=== PATIENT | male | born 1975 | race Caucasian/White ===

== ENCOUNTER → 2018-03-04 | Outpatient (CLI) | payer MEDICARE, MEDICAID | LOC: M SLEEP 20:00 | DX: G47.33 Obstructive sleep apnea (adult) (pediatric) (principal) | CPT/HCPCS: 95811 ==

== ENCOUNTER → 2018-03-05 | Outpatient (CLI) | payer MEDICARE, MEDICAID ==
[2018-03-05 08:36] LABS: ERYTHROCYTE SEDIMENTATION RATE 16 mm/hr (0-15)
[2018-03-05 08:37] LABS: RHEUMATOID FACTOR QUANT < 10.0 IU/ML (<15.0)
[2018-03-08 00:07] LABS: ANCA-ATYPICAL <1:20 titer (Neg:<1:20); ANGIOTENSIN 1 CONVERTING ENZYM 25 U/L (14-82); ANTINUCLEAR ANTIBODIES DIRECT Negative (Negative); CERULOPLASMIN 20.2 mg/dL (16.0-31.0); COPPER PLASMA 80 ug/dL (72-166); CYTOPLASMIC NEUTROP AB ANCA-C <1:20 titer (Neg:<1:20); Lyme Disease IgG/IgM Antibodie <0.91 ISR (0.00-0.90); Lyme Disease IgM Ab Quantitati <0.80 index (0.00-0.79); PERINUCLEAR AB ANCA-P <1:20 titer (Neg:<1:20)
== END ==
LOC: M LAB 07:07
DX: E61.0 Copper deficiency (principal)
CPT/HCPCS: 82525

== ENCOUNTER → 2018-08-20 | Outpatient (CLI) | payer MEDICARE, MEDICAID ==
[~2018-08-20] MED LIST: /FEXO18TA OR; /GLIM4TA OR; ALTA10CA OR; BENZ1TAB OR; DIGESTIVE ADVANTAGE; DIGESTIVE ADVANTAGE PO; FENO160T10 PO; FISH5CAP PO; FLOM0.4C39 PO; Fish Oil PO; GABA-843 PO; GEOD1CAP PO; GLUC850T OR; MAG-TAB OR; METF850T4 PO; OMEP40CA2 PO; PRIL40CA OR; RESTASIS OU; THIA50CA PO; TRIC145T19 OR; VITA-112 PO; VITA250L PO; ZIPR80CAP OR; [UNRECOGNIZED DRUG - CODE] GT; [UNRECOGNIZED DRUG - OTHER] PO
[2018-08-20 07:57] LABS: BASO # 0.1 10^3/uL (0.0-0.2); BASO % 0.8 % (0.0-1.0); EOS # 0.2 10^3/uL (0.0-0.50); EOS % 1.7 % (0.0-3.0); HEMATOCRIT 35.8 % (42.0-52.0); HEMOGLOBIN 11.7 g/dl (13.5-17.5); LYMPH # 3.4 10^3/uL (1.5-4.5); LYMPH % 30.8 % (24.0-44.0); MEAN CORPUSCULAR HEMOGLOBIN 27.3 pg (27.0-33.0); MEAN CORPUSCULAR HGB CONC 32.7 g/dl (32.0-36.5); MEAN CORPUSCULAR VOLUME 83.4 fl (80.0-96.0); MONO % 9.2 % (0.0-5.0); NEUTROPHILS # 6.2 10^3/uL (1.8-7.7); NEUTROPHILS % 57.1 % (36.0-66.0); PLATELET COUNT, AUTOMATED 389 10^3/uL (150-450); RED BLOOD COUNT 4.29 10^6/uL (4.30-6.10); WHITE BLOOD COUNT 10.9 10^3/uL (4.0-10.0)
[2018-08-20 08:30] LABS: ALBUMIN 3.7 GM/DL (3.2-5.2); ALT/SGPT 44 U/L (12-78); BILIRUBIN,TOTAL 0.4 MG/DL (0.2-1.0); BLOOD UREA NITROGEN 12 MG/DL (7-18); CALCIUM LEVEL 8.9 MG/DL (8.5-10.1); CARBON DIOXIDE LEVEL 26 MEQ/L (21-32); CHLORIDE LEVEL 104 MEQ/L (98-107); CREATININE FOR GFR 0.84 MG/DL (0.70-1.30); GLOMERULAR FILTRATION RATE > 60.0 (>60); GLUCOSE, FASTING 146 MG/DL (70-100); POTASSIUM SERUM 3.9 MEQ/L (3.5-5.1); SODIUM LEVEL 140 MEQ/L (136-145); TOTAL PROTEIN 6.8 GM/DL (6.4-8.2)
[2018-08-20 08:58] LABS: HEMOGLOBIN A1c 8.1 %
== END ==
LOC: M LAB 07:13
PROVIDERS: ATTEND Family Medicine
DX: E11.65 Type 2 diabetes mellitus with hyperglycemia (principal); D64.9 Anemia, unspecified; E07.9 Disorder of thyroid, unspecified
CPT/HCPCS: 36415; 80053; 83036; 84443; 85025; G0103

== ENCOUNTER → 2018-08-21 | Outpatient (REF) | payer MEDICARE, MEDICAID ==
[2018-08-21 11:57] LABS: CREATININE, URINE < 13.0 MG/DL; MALB URINE SIEMENS < 5.0 MG/L
== END ==
LOC: M LAB REF 09:49
PROVIDERS: ATTEND Family Medicine
DX: E11.65 Type 2 diabetes mellitus with hyperglycemia (principal); D64.9 Anemia, unspecified; E07.9 Disorder of thyroid, unspecified

== ENCOUNTER 2018-11-13 14:02 | Emergency (ER) | payer MEDICARE, MEDICAID ==
[~2018-11-13] VITALS: Ht 180.3 cm; Wt 99.5 kg
[~2018-11-13 14:02] MED LIST changes: -/GLIM4TA OR; +AMAR1TAB6 OR
[2018-11-13] MEDS ORDERED: BETH1TAB3 (14:14)
[2018-11-13] MEDS ORDERED: GAS125CA15 (14:14)
[2018-11-13] MEDS ORDERED: REST0.057 (14:14)
[2018-11-13] MEDS ORDERED: OMEP-221 (14:14)
[2018-11-13] MEDS ORDERED: TRUL10IN (14:14)
--- NOTE | 2018-11-13 15:17 | REP ---
CT Head without contrast HISTORY: Fall COMPARISON: 04/25/2016 There is no intraparenchymal hemorrhage, acute infarct, mass or midline shift. The ventricular system is normal in appearance. There is no extra cerebral collection. A small amount of subarachnoid hemorrhage is present anterior to the right temporal lobe and in the anterior interhemispheric fissure. There is a nondisplaced fracture of the left occipital and parietal bones. The visualized sinuses are clear. Soft tissue swelling is present overlying the parietal bones and left occipital bone. Small amount of subcutaneous air is present in the soft tissue overlying the left parietal bone. IMPRESSION: 1. Small amount of subarachnoid hemorrhage. 2. Nondepressed fracture of the left parietal and occipital bones. Results were discussed with Ray Robertson at 03:00 p.m. 10/28/2018 Electronically Signed by Rancho Al MD 11/13/2018 03:09 P
[2018-11-13] MEDS: ADACEL/BOOSTRIX VACCINE (DIPHTH/PERTUSS/ACELL/TETANUS)0.5ML SYR (90715) IM ONE (15:49)
[2018-11-13 16:07] VITALS: BP 142/84
== END 2018-11-13 16:14 | disposition short-term general hospital (02) ==
LOC: M ED 14:02
DX: S01.91XA Laceration without foreign body of unspecified part of head, initial encounter (principal); W55.89XA Other contact with other mammals, initial encounter; Y92.019 Unspecified place in single-family (private) house as the place of occurrence of the external cause

== ENCOUNTER → 2019-04-03 | Outpatient (CLI) | payer MEDICARE, MEDICAID ==
[~2019-04-03] MED LIST changes: +BETH1TAB3; +GAS125CA15; +OMEP-221; +REST0.057; +TRUL10IN
[2019-04-03 07:51] LABS: BASO # 0.1 10^3/uL (0.0-0.2); BASO % 0.8 % (0.0-1.0); EOS # 0.2 10^3/uL (0.0-0.5); EOS % 1.9 % (0.0-3.0); HEMATOCRIT 35.6 % (42.0-52.0); HEMOGLOBIN 11.5 g/dl (13.5-17.5); LYMPH # 3.3 10^3/uL (1.5-5.0); LYMPH % 36.8 % (24.0-44.0); MEAN CORPUSCULAR HEMOGLOBIN 26.3 pg (27.0-33.0); MEAN CORPUSCULAR HGB CONC 32.3 g/dl (32.0-36.5); MEAN CORPUSCULAR VOLUME 81.5 fl (80.0-96.0); MONO # 0.8 10^3/uL (0.0-0.8); MONO % 9.3 % (0.0-5.0); NEUTROPHILS # 4.6 10^3/uL (1.5-8.5); NEUTROPHILS % 50.9 % (36.0-66.0); PLATELET COUNT, AUTOMATED 402 10^3/uL (150-450); RED BLOOD COUNT 4.37 10^6/uL (4.30-6.10); WHITE BLOOD COUNT 8.9 10^3/uL (4.0-10.0)
[2019-04-03 08:28] LABS: ALBUMIN 3.9 GM/DL (3.2-5.2); ALT/SGPT 46 U/L (12-78); BILIRUBIN,TOTAL 0.2 MG/DL (0.2-1.0); BLOOD UREA NITROGEN 10 MG/DL (7-18); CALCIUM LEVEL 9.2 MG/DL (8.5-10.1); CARBON DIOXIDE LEVEL 23 MEQ/L (21-32); CHLORIDE LEVEL 105 MEQ/L (98-107); CHOLESTEROL LEVEL 203 MG/DL (<200); CHOLESTEROL RISK RATIO 4.319 (<5); CREATININE FOR GFR 0.84 MG/DL (0.70-1.30); FERRITIN 25 NG/ML (26-388); GLOMERULAR FILTRATION RATE > 60.0 (>60); GLUCOSE, FASTING 133 MG/DL (70-100); HDL CHOLESTEROL 47 MG/DL (>40); IRON (FE) 60 UG/DL (65-175); LDL CHOLESTEROL 91 MG/DL (<100); NON-HDL-C 156 MG/DL; PERCENT SATURATION 14.2 % (19.7-50.0); SODIUM LEVEL 139 MEQ/L (136-145); TOTAL IRON BINDING CAPACITY 422 UG/DL (250-450); TOTAL PROTEIN 7.3 GM/DL (6.4-8.2); TRIGLYCERIDES LEVEL 327 MG/DL (<150)
[2019-04-03 09:39] LABS: HEMOGLOBIN A1c 7.8 %
[2019-04-03 10:18] LABS: VITAMIN B12 LEVEL 953 PG/ML
[2019-04-03 10:23] LABS: FOLATE 23.9 NG/ML
== END ==
LOC: M LAB 07:09
PROVIDERS: ATTEND Family Medicine
DX: E78.5 Hyperlipidemia, unspecified (principal); E11.65 Type 2 diabetes mellitus with hyperglycemia; I10 Essential (primary) hypertension; D64.9 Anemia, unspecified; D51.9 Vitamin B12 deficiency anemia, unspecified; E07.9 Disorder of thyroid, unspecified

== ENCOUNTER 2019-05-20 15:13 | Emergency (ER) | payer MEDICARE, MEDICAID ==
[~2019-05-20] VITALS: Ht 175.3 cm; Wt 104.6 kg
[~2019-05-20 15:13] MED LIST changes: -OMEP40CA2 PO; +OMEP40CA97 PO
--- NOTE | 2019-05-20 15:59 | REP ---
CT brain: 05/20/2019. Indication: Head trauma. Comparison: 11/13/2018. Technique: Unenhanced axial CT images of the brain were obtained from skull base to vertex. Findings: There is no acute intracranial hemorrhage, acute cortical infarction, mass effect, hydrocephalus or acute calvarial fracture. Previously described left parieto-occipital fracture is redemonstrated without displacement. Impression: No acute intracranial process. Electronically Signed by Avila Whitehead DO 05/20/2019 03:52 P
[2019-05-20] MEDS ORDERED: ACETAMINOPHEN TAB 650MG DOSE (2X325MG) PO ONE (16:00)
--- NOTE | 2019-05-20 16:26 | REP ---
Left knee series: Five views. History: Trauma. Findings: Five views of the left knee show a normal fabella. There is no evidence of fracture or subluxation. No evidence of joint effusion is seen. Impression: No fracture seen. Electronically Signed by Loi Ramírez MD 05/20/2019 04:17 P
[2019-05-20 16:36] VITALS: BP 141/82
== END 2019-05-20 16:37 | disposition home or self-care (01) ==
LOC: M ED 15:13
DX: S09.90XA Unspecified injury of head, initial encounter (principal); S01.01XA Laceration without foreign body of scalp, initial encounter; R26.81 Unsteadiness on feet; W01.198A Fall on same level from slipping, tripping and stumbling with subsequent striking against other object, initial encounter; Y92.018 Other place in single-family (private) house as the place of occurrence of the external cause; E11.9 Type 2 diabetes mellitus without complications; E78.5 Hyperlipidemia, unspecified; Z91.011 Allergy to milk products; Z79.84 Long term (current) use of oral hypoglycemic drugs; Z79.899 Other long term (current) drug therapy

== ENCOUNTER → 2019-08-06 | Outpatient (CLI) | payer MEDICARE, MEDICAID ==
[2019-08-06 08:22] LABS: BASO # 0.1 10^3/uL (0.0-0.2); BASO % 0.9 % (0.0-1.0); EOS # 0.2 10^3/uL (0.0-0.5); EOS % 1.8 % (0.0-3.0); HEMOGLOBIN 11.9 g/dl (13.5-17.5); LYMPH # 3.7 10^3/uL (1.5-5.0); LYMPH % 36.1 % (24.0-44.0); MEAN CORPUSCULAR HEMOGLOBIN 26.5 pg (27.0-33.0); MEAN CORPUSCULAR HGB CONC 32.2 g/dl (32.0-36.5); MEAN CORPUSCULAR VOLUME 82.4 fl (80.0-96.0); MONO # 0.8 10^3/uL (0.0-0.8); MONO % 7.4 % (0.0-5.0); NEUTROPHILS # 5.6 10^3/uL (1.5-8.5); NEUTROPHILS % 53.6 % (36.0-66.0); PLATELET COUNT, AUTOMATED 410 10^3/uL (150-450); RED BLOOD COUNT 4.49 10^6/uL (4.30-6.10); WHITE BLOOD COUNT 10.4 10^3/uL (4.0-10.0)
[2019-08-06 08:49] LABS: ALT/SGPT 52 U/L (12-78); BILIRUBIN,TOTAL 0.3 MG/DL (0.2-1.0); BLOOD UREA NITROGEN 8 MG/DL (7-18); CALCIUM LEVEL 9.1 MG/DL (8.5-10.1); CARBON DIOXIDE LEVEL 27 MEQ/L (21-32); CHLORIDE LEVEL 107 MEQ/L (98-107); CREATININE FOR GFR 0.83 MG/DL (0.70-1.30); FERRITIN 20 NG/ML (26-388); GLOMERULAR FILTRATION RATE > 60.0 (>60); GLUCOSE, FASTING 124 MG/DL (70-100); IRON (FE) 51 UG/DL (65-175); PERCENT SATURATION 13.4 % (19.7-50.0); POTASSIUM SERUM 4.1 MEQ/L (3.5-5.1); SODIUM LEVEL 140 MEQ/L (136-145); TOTAL IRON BINDING CAPACITY 382 UG/DL (250-450); TOTAL PROTEIN 7.3 GM/DL (6.4-8.2)
[2019-08-06 12:45] LABS: HEMOGLOBIN A1c 7.7 %
[2019-08-07 13:34] LABS: CHOLESTEROL LEVEL 176 MG/DL (<200); CHOLESTEROL RISK RATIO 4.093 (<5); HDL CHOLESTEROL 43 MG/DL (>40); LDL CHOLESTEROL 80 MG/DL (<100); NON-HDL-C 133 MG/DL; TRIGLYCERIDES LEVEL 267 MG/DL (<150)
[2019-08-07 13:37] LABS: FOLATE 22.7 NG/ML; VITAMIN B12 LEVEL 1331 PG/ML
== END ==
LOC: M LAB 07:13
PROVIDERS: ATTEND Family Medicine
DX: D64.9 Anemia, unspecified (principal); I10 Essential (primary) hypertension; E11.9 Type 2 diabetes mellitus without complications; E07.9 Disorder of thyroid, unspecified; E78.5 Hyperlipidemia, unspecified

== ENCOUNTER 2020-08-15 02:37 | Emergency (ER) | payer MEDICARE, MEDICAID ==
[~2020-08-15] VITALS: Ht 177.8 cm; Wt 127.3 kg
[~2020-08-15 02:37] MED LIST changes: -BETH1TAB3; +BETH25TA3; +GABA-282 PO; -GABA-843 PO; -GAS125CA15; +SIME125C33
--- OUTSIDE RECORDS SUMMARY | 2020-08-15 02:45 | CCD | Summary of Care ---
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/2020 Telemedicine [facility] Neurology a [facility] [address] [facility] [address], [address] [place] [phone] Allergies Comments Active Allergy Reactions Severity Noted Date Lactose 11/13/2018 documented as of this encounter (statuses as of 06/07/2020) Medications End Date Status Medication Sig Dispensed Refills Start Date Active metformin (GLUCOPHAGE) Two times 0 01/26/ 01 850 MG tablet daily with 8 meals Active bethanechol (URECHOLINE) Take 25 mg by 0 25 MG tablet mouth Three times daily Active Multiple Take 1 tablet 0 Vitamins-Minerals by mouth (MULTIVITAMIN ADULT PO) daily Active vitamin B-12 Take 50 mcg 0 (CYANOCOBALAMIN) 100 MCG by mouth tablet daily Active ziprasidone (GEODON) 40 Take 40 mg by 0 MG capsule mouth Three times daily Active omeprazole (PRILOSEC) 40 Take 40 mg by 0 MG capsule mouth daily Active Lactase (LACTOSE Take 1 tablet 0 INTOLERANCE PO) by mouth daily Active Lactobacillus (PROBIOTIC Take 1 tablet 0 ACIDOPHILUS PO) by mouth daily Active Cholecalciferol (VITAMIN Take 1,000 0 D3) 3000 units TABS Units by mouth Three times daily Active Cyanocobalamin (VITAMIN Take 1,000 mg 0 B-12 PO) by mouth daily Active fenofibrate (TRIGLIDE) Take 160 mg 0 160 MG tablet by mouth daily Active tamsulosin HCl (FLOMAX) Take 0.4 mg 0 0.4 MG CAPS by mouth daily Active acetaminophen (TYLENOL) Take 1,000 mg 0 500 MG tablet by mouth nightly Active cycloSPORINE (RESTASIS) Place 1 drop 0 0.05 % ophthalmic into both emulsion eyes Two Times Daily Active TRULICITY 0.75 MG/0.5ML Inject 1.5 mg 0 injection pen 0.75 mg/0.5 into the skin 9 mL once a week Active vitamin B-12 Take 1,000 0 (CYANOCOBALAMIN) 1000 MCG mcg by mouth tablet daily Active Vitamin B-1 100 MG Oral Take 100 mg 0 Tablet by mouth daily Active Glimepiride 1 MG Oral Take 1 mg by 0 06/03/20 1 Tablet (AMARYL) mouth Two 9 Times Daily Active Atorvastatin Calcium 10 Take 5 mg by 0 MG Oral Tablet (LIPITOR) mouth daily Active Docusate Sodium 50 MG Take 100 mg 0 Oral Capsule (COLACE) by mouth nightly documented as of this encounter (statuses as of 06/07/2020) Active Problems Problem Noted Date Fall 11/14/2018 XENA on CPAP 11/14/2018 Class 2 severe obesity with serious comorbidity and b nino mass index (BMI) 11/14/2018 of 35.0 to 35.9 in adult Lactic acid acidosis 11/14/2018 SIRS (systemic inflammatory response syndrome) 11/14 Essential hypertension 11/14/2018 High anion gap metabolic acidosis 11/14/2018 nondisplaced linear fracture of the left occipital az ne 11/14/2018 Abrasion 11/14/2018 Benign prostatic hyperplasia with lower urinary tract symptoms 11/14/2018 Schizoaffective disorder 11/14/2018 Intellectual disability 11/14/2018 Hyperlipidemia 11/14/2018 Subarachnoid hemorrhage 11/13/2018 documented as of this encounter (statuses as of 06/07/2020) Social History Date Tobacco Use Types Packs/Day Years Used Never Smoker Smokeless Tobacco: Never Used Drinks/Week oz/Week Comments Alcohol Use Never Alcohol Habits Answer Date Recorded How often do you have a drink containing alcohol? Never 11/14/2018 How many drinks containing alcohol do you have on No t asked a typical day when you are drinking? How often do you have six or more drinks on one Not asked occasion? Sex Assigned at Date Recorded Not on file documented as of this encounter Last Filed Vital Signs Reading Time Taken Comments Vital Sign - - Blood Pressure - - Pulse - - Temperature - - Respiratory Rate - - Oxygen Saturation - - Inhaled Oxygen Concentration 109.3 kg (241 lb) 06/05/2020 9:24 AM EST per sister today Weight - - Height 36.95 11/14/2018 1:49 AM EDT Body Mass Index documented in this encounter Progress Notes * Yancy Morales MD - 06/05/2020 9:20 AM EST Clinical Neuroimmunology Telemedicine visit The patient was informed of the risks, including security breach, technological failure, inability to perform a comprehensive physical exam ,which could delay o r prevent an accurate diagnosis, and potential complications from treatment deci sions rendered over a telemedical platform, after which the patient consented to the use of telehealth services. Care was delivered via telemedicine audio and v ideo connection, as per [facility] and/or [facility] directives a nd protocols. Reason for consultation: Gait instability. Requested by: No referring provider defined for this encounter. Chief Complaint: Chief Complaint Patient presents with New Patient HPI: Arash Robles is a 44 y.o. male who is assessed by telemedicine for initi al consultation accompanied by sister ( who is his caregiver) He has a medical history of cognitive delay - completed some high school, Wern[place]'s encephalopathy diagnosis(?), Schizoaffective disorder, DM2 Referred for gait instability, including poor balance. This has been on going fo r the past about 6-8 years, his current Neurologist in [place] referred him fo r multiple lesions in the spine of unclear etiology. He currently follows with Dr. Valle due to history of Wernicke's encephalopathy. Neurological History: He was at his baseline 6-8 years ago when his sister noticed change in gait dist urbance causing him to fall while walking on flat surface both in and outdoors; he times falls during turns as well. He was initially seen at [place] in 2011 where brain and cervical spine MRIs revealed a disc bulge at the C5-C6 level wit h minimal stenosis from C5 to C7, and a normal brain MRI. In 2018, he was seen b y [facility] in 2018 for possible PD, his exam bao l reflexes, sensory, motor. He was noted to have some pill rolling movements, tr unk rocking. Repeat MRI was noted to have bilateral thalamic and periaqueductal johns T2 hyper intensities thought to be consistent with [place]; additionally he had 5 mm medullary lesion extending into there cervical spine of unclear roxane ology. He was started on Thiamine, LP was performed which was largely unremarkab le (result below), he was also treated for tardive dyskinesia. Additional symptoms include 5 years ago he developed double vision, for which he was seen by [facility] for bilateral exotropia causing worsening double for which he had corrective surgery. He had episodes of urinary retention 4 years ago for which he had suprapubic catheter by Urology, unclear if this is still an active issue. In the interim his he continues to fall and in October 2018, his fall resulted in a right SAH and left occipital bone fracture. He has since started PT/OT which w as his sister feels has been helpful. His most recent MRI in March 2020 show ed cervical spine lesion more prominent than prior. No additional lesions, altho ugh extensive medullary lesion was thought to be more prominent. Interval History: Since last visit the patient reports:na (initial visit) Disease modifying therapy history: None Diagnosis Workup and Results: MRI Information: Laboratory Studies: Results for ARASH ROBLES ( ) as of 06/05/2020 10:03 Ref. Range 08/24/2018 12:50 Clarity, CSF Unknown Clear Red blood cell count,CSF Latest Ref Range: <2 /uL 62 (H) Total Nucleated Cells, CSF Latest Ref Range: <5 /uL <3 Albumin Serum Latest Ref Range: 3.5 - 5.5 g/dL 4.4 Albumin, CSF Latest Ref Range: 11 - 48 mg/dL 36 Color, CSF Unknown Colorless Comment Unknown Not Applicable CSF Differential Unknown Not Applicable Glucose, CSF Latest Ref Range: 40 - 70 mg/dL 61 IgG, CSF Latest Ref Range: 0.0 - 8.6 mg/dL 3.6 Protein Elect, CSF Unknown See Special Chemistry Protein, CSF Latest Ref Range: 15 - 45 mg/dl 55 (H) Synthesis Rate IgG, CSF Latest Ref Range: NEG 9.9 TO +3.3 mg/day 2.6 Interpretation No oligoclonal bands detected Interpretation Normally migrating serum proteins. Diagnosis CEREBROSPINAL FLUID: NO EVIDENCE OF MALIGNANCY No results found for this or any previous visit (from the past 8736 hour(s)). Past Medical History: Diagnosis Date Diabetes mellitus Hypertension Past Surgical History: Procedure Laterality Date EYE SURGERY Social History Tobacco Use Smoking status: Never Smoker Smokeless tobacco: Never Used Substance Use Topics Alcohol use: Never Frequency: Never Drug use: Never Family History Problem Relation Age of Onset Arthritis Mother Heart disease Mother Hypertension Mother Asthma Father Arthritis Father Diabetes Father Heart disease Father Hypertension Father Dementia Father Asthma Sister Arthritis Brother Hypertension Brother Asthma Sister No Known Problems Sister No Known Problems Brother No Known Problems Brother Allergies as of 06/05/2020 - Reviewed 06/05/2020 Allergen Reaction Noted Lactose 11/13/2018 Outpatient Medications Marked as Taking for the 06/05/20 encounter (Telemedicine ) with Ben Iqbal MD Medication Sig Dispense Refill Extra Info acetaminophen (TYLENOL) 500 MG tablet Take 1,000 mg by mouth nightly 1 Atorvastatin Calcium 10 MG Oral Tablet (LIPITOR) Take 5 mg by mouth daily 1 bethanechol (URECHOLINE) 25 MG tablet Take 25 mg by mouth Three times garcía ly 1 Cholecalciferol (VITAMIN D3) 3000 units TABS Take 1,000 Units by mouth Th ree times daily 1 Cyanocobalamin (VITAMIN B-12 PO) Take 1,000 mg by mouth daily 1 cycloSPORINE (RESTASIS) 0.05 % ophthalmic emulsion Place 1 drop into both eyes Two Times Daily 1 Docusate Sodium 50 MG Oral Capsule (COLACE) Take 100 mg by mouth nightly 1 fenofibrate (TRIGLIDE) 160 MG tablet Take 160 mg by mouth daily 1 Glimepiride 1 MG Oral Tablet (AMARYL) Take 1 mg by mouth Two Times Daily 1 Lactase (LACTOSE INTOLERANCE PO) Take 1 tablet by mouth daily 1 Lactobacillus (PROBIOTIC ACIDOPHILUS PO) Take 1 tablet by mouth daily 1 metformin (GLUCOPHAGE) 850 MG tablet Two times daily with meals 1 Multiple Vitamins-Minerals (MULTIVITAMIN ADULT PO) Take 1 tablet by mouth daily 1 omeprazole (PRILOSEC) 40 MG capsule Take 40 mg by mouth daily 1 tamsulosin HCl (FLOMAX) 0.4 MG CAPS Take 0.4 mg by mouth daily 1 TRULICITY 0.75 MG/0.5ML injection pen 0.75 mg/0.5 mL Inject 1.5 mg into t he skin once a week 1 Vitamin B-1 100 MG Oral Tablet Take 100 mg by mouth daily 1 ziprasidone (GEODON) 40 MG capsule Take 40 mg by mouth Three times daily 1 Review of Systems: Besides the above mentioned symptoms described in the HPI, a complete review of systems was obtained and filed in the chart. All other systems were otherwise negative. General Physical Exam: Vital Signs: Vitals: 06/05/20 0924 Weight: 109.3 kg (241 lb) Constitutional: The patient is well-appearing and in no acute distress. Eyes: Conjunctivae and lids are normal, see examination of the optic discs below Skin: No rashes or discoloration noted Respiratory: Respiratory effort is normal Cardiovascular: Dorsalis pedis pulses are normal, no peripheral edema noted Neurological Examination (tele examination) Mental Status/Psychiatric: The patient was awake, alert, attentive, oriented to time, place, person. He is able to perform 2 but not 3 step commands without assistance. Mental status: normal (no anxiety/depression/euphoria/pseudobulbar affect) Speech: normal (not dysphasic/cerebellar/spastic) Cranial Nerves: Red desaturation: not tested VA not tested Facial Strength: normal Fundi: no pallor Mild adduction palsy right eye with left nystagmus - Nystagmus: none SCM/trapezius grossly intact Pupils 2 mm in brightly lit room Tongue: midline Motor Exam and Deep Tendon Reflexes: AG x4 Lhermitte's Sign: not present Bulk: normal Sensory System: Coordination (0-4): FTN intact Gait: Mobility normal Heel Walk Gait and Station Antalgic gait. Toe Walk Tandem Walk Unsteady Assessment: Arash Robles is a 44 y.o. male who is here for new neurology consultation for progressive gait instability and nonenhancing lesion extending medullary to cerv ical spine, MRI 2020 brain, cervical,m thoracic spine were [place] with Radi[facility] [place], there are multiple lesions. there is bilateral lesion in pena matter coales cing in the medulla and C4-6 posterior lesion. Differential remains broad including vascular, demyelinating and metabolic. Give n progressive nature, vascular is lower on the differential. Plan - Metabolic workup -Copper, Ceruloplasmin, B12, MMA< folate, zinc - Autoimmune: DORIS and DORIS specificity, ESR, TSH, Celiac. Demyelinating- NMO, MO G - Infectious - HIV - He will benefit from inpatient visit in 3 months for more extensive examinati on Greater than 50% of this 60 minute visit was spent in medical discussion regardi ng the patient's diagnosis, prognosis. I had an extensive conversation with Arash Yady Robles (especially with sister - Petty Zapata) regarding these thoughts and recommendations. The patient demonstra dillon a good understanding of the risks/benefits of this plan. Thank you for allowing us to participate in the care of this patient. If you hav e any questions, please do not hesitate to call our office. Attending Addendum I saw and evaluated the patient. Discussed with the resident and agree with the residents findings and plans as written, along with any supplemental dictated a nd/or attending documentation in the patient record by myself. Our evaluation today is very limited by the telemedicine format due to the worse harper COVID-19 pandemic. We reviewed the patient's neuroimaging with radiology a t length. By the time I joined the telemedicine encounter, the patient had left to attend another appointment so I was not able to evaluate him. In discussing with sister, my understanding is that he has been experiencing 8 y ears of progressive gait decline. She denies episodes of neurological worsening. However his history includes the onset of diplopia 5 years ago. Urinary retenti on requiring suprapubic catheter Other neurological diagnoses that have been made: axonal sensorimotor polyneuropathy and gives a description of restless legs synd visalia - Dr. Osborn UR 2012 opisthotonus and upper extremity dystonias - Tardive dyskinesia and Tardive dyst onia, Dr. 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 We will have to plan for an in person visit to assess further. Ben Iqbal MD documented in this encounter Plan of Treatment Care Team Description Date Type Specialty Ben Iqbal MD [address] [facility] [address] [place] [phone] 09/09/2020 Office Visit Neurology Order Schedule Name Type Priority Associated Diag noses 1 Occurrences starting 06/05/2020 until 12/03/2020 DORIS Lab Routine Ataxia Demyelinating disease of central nervous system Gait disturbance Dysmetria Urinary retention Spinal cord anomaly 1 Occurrences starting 06/05/2020 until 12/03/2020 DORIS Specificity Lab Routine Ataxia Demyelinating disease of central nervous system Gait disturbance Dysmetria Urinary retention Spinal cord anomaly 1 Occurrences starting 06/05/2020 until 12/03/2020 Angiotensin converting Lab Routine Ataxia enzyme Demyelinating disease of central nervous system Gait disturbance Dysmetria Urinary retention Spinal cord anomaly 1 Occurrences starting 06/05/2020 until 12/03/2020 B2 glycoprotein IgG/IgM Lab Routine Ataxia Demyelinating disease of central nervous system Gait disturbance Dysmetria Urinary retention Spinal cord anomaly 1 Occurrences starting 06/05/2020 until 12/03/2020 C3 complement Lab Routine Ataxia Demyelinating disease of central nervous system Gait disturbance Dysmetria Urinary retention Spinal cord anomaly 1 Occurrences starting 06/05/2020 until 12/03/2020 C4 complement Lab Routine Ataxia Demyelinating disease of central nervous system Gait disturbance Dysmetria Urinary retention Spinal cord anomaly 1 Occurrences starting 06/05/2020 until 12/03/2020 Cardiolipin IgG/IgM Ab Lab Routine Ataxia Demyelinating disease of central nervous system Gait disturbance Dysmetria Urinary retention Spinal cord anomaly 1 Occurrences starting 06/05/2020 until 12/03/2020 CBC and Differential Lab Routine Ataxia Demyelinating disease of central nervous system Gait disturbance Dysmetria Urinary retention Spinal cord anomaly 1 Occurrences starting 06/05/2020 until 12/03/2020 Basic Metabolic Panel Lab Routine Ataxia Demyelinating disease of central nervous system Gait disturbance Dysmetria Urinary retention Spinal cord anomaly 1 Occurrences starting 06/05/2020 until 12/03/2020 Ceruloplasmin Lab Routine Ataxia Demyelinating disease of central nervous system Gait disturbance Dysmetria Urinary retention Spinal cord anomaly 1 Occurrences starting 06/05/2020 until 12/03/2020 Vitamin A Level Lab Routine Ataxia Demyelinating disease of central nervous system Gait disturbance Dysmetria Urinary retention Spinal cord anomaly 1 Occurrences starting 06/05/2020 until 12/03/2020 Vitamin B12 Lab Routine Ataxia Demyelinating disease of central nervous system Gait disturbance Dysmetria Urinary retention Spinal cord anomaly 1 Occurrences starting 06/05/2020 until 12/03/2020 Vitamin E Level Lab Routine Ataxia Demyelinating disease of central nervous system Gait disturbance Dysmetria Urinary retention Spinal cord anomaly 1 Occurrences starting 06/05/2020 until 12/03/2020 Methylmalonic Acid, Serum Lab Routine Atax ia Demyelinating disease of central nervous system Gait disturbance Dysmetria Urinary retention Spinal cord anomaly 1 Occurrences starting 06/05/2020 until 12/03/2020 Homocysteine, serum Lab Routine Ataxia Demyelinating disease of central nervous system Gait disturbance Dysmetria Urinary retention Spinal cord anomaly 1 Occurrences starting 06/05/2020 until 12/03/2020 Folate Lab Routine Ataxia Demyelinating disease of central nervous system Gait disturbance Dysmetria Urinary retention Spinal cord anomaly 1 Occurrences starting 06/05/2020 until 12/03/2020 TSH Lab Routine Ataxia Demyelinating disease of central nervous system Gait disturbance Dysmetria Urinary retention Spinal cord anomaly 1 Occurrences starting 06/05/2020 until 12/03/2020 T3, free Lab Routine Ataxia Demyelinating disease of central nervous system Gait disturbance Dysmetria Urinary retention Spinal cord anomaly 1 Occurrences starting 06/05/2020 until 12/03/2020 T4, free Lab Routine Ataxia Demyelinating disease of central nervous system Gait disturbance Dysmetria Urinary retention Spinal cord anomaly 1 Occurrences starting 06/05/2020 until 12/03/2020 Hepatic Function Panel Lab Routine Ataxia Demyelinating disease of central nervous system Gait disturbance Dysmetria Urinary retention Spinal cord anomaly 1 Occurrences starting 06/05/2020 until 12/03/2020 HIV Ag Ab Combo Screen Lab Routine Ataxia Demyelinating disease of central nervous system Gait disturbance Dysmetria Urinary retention Spinal cord anomaly Ordered: 06/05/2020 Inflammatory C-Reactive Lab Routine Ataxia Protein (CRP) Demyelinating disease of central nervous system Gait disturbance Dysmetria Urinary retention Spinal cord anomaly 1 Occurrences starting 06/05/2020 until 12/03/2020 Rheumatoid factor Lab Routine Ataxia Demyelinating disease of central nervous system Gait disturbance Dysmetria Urinary retention Spinal cord anomaly 1 Occurrences starting 06/05/2020 until 12/03/2020 Sedimentation rate, Lab Routine Ataxia automated Demyelinating disease of central nervous system Gait disturbance Dysmetria Urinary retention Spinal cord anomaly 1 Occurrences starting 06/05/2020 until 12/03/2020 Syphilis IgG/IgM Screen Lab Routine Ataxia w/Reflex to RPR Demyelinating disease of central nervous system Gait disturbance Dysmetria Urinary retention Spinal cord anomaly 1 Occurrences starting 06/05/2020 until 12/03/2020 NMO/AQP4 FACS, Serum Lab Routine Ataxia (Send Out) Demyelinating disease of central nervous system Gait disturbance Dysmetria Urinary retention Spinal cord anomaly 1 Occurrences starting 06/05/2020 until 12/03/2020 Myelin Oligodendrocyte Lab Routine Ataxia Glycoprotein (Authorized Demyelinating disease of Providers Only) central nervous system Gait disturbance Dysmetria Urinary retention Spinal cord anomaly 1 Occurrences starting 06/05/2020 until 12/03/2020 Neutrophil Cytoplasmic Lab Routine Ataxia Antibody Demyelinating disease of central nervous system Gait disturbance Dysmetria Urinary retention Spinal cord anomaly 1 Occurrences starting 06/05/2020 until 12/03/2020 Protein Elect with Serum Lab Routine Ataxi a TP Demyelinating disease of central nervous system Gait disturbance Dysmetria Urinary retention Spinal cord anomaly Health Maintenance Due Date Last Done Comments MMR Vaccines (1 of - 1977 Standard series) Varicella Vaccines (1 of 1977 2 - 2-dose childhood series) HIV Screening 1989 DTaP,Tdap,and Td Vaccines 05/15/2019 11/13/2018, (3 - Td) 07/17/2009 Influenza Vaccine 04/16/2020 03/10/2020, 05/06/2019, 04/24/2018, Additional history exists Pneumococcal Vaccine: 65+ 2041 Years (1 of 1 - PPSV23) HIB Vaccines Aged Out No longer eligible based on patient's age to complete this topic Hepatitis A Vaccines Aged Out No longer eligibl e based on patient's age to complete this topic Hepatitis B Vaccines Aged Out No longer eligibl e based on patient's age to complete this topic IPV Vaccines Aged Out No longer eligible based on patient's age to complete this topic Pneumococcal Vaccine: Aged Out No longer eligib le based on patient's age to Pediatrics (0 to 5 Years) complete this topic and At-Risk Patients (6 to 64 Years) documented as of this encounter Results Not on filedocumented in this encounter Visit Diagnoses Diagnosis Demyelinating disease of central nervou s system - Primary Demyelinating disease of central nervou s system, unspecified Ataxia Lack of coordination Gait disturbance Abnormality of gait Eye lesion Disorder of eye, unspecified Dysmetria Lack of coordination Urinary retention Retention of urine, unspecified Spinal cord anomaly documented in this encounter
--- OUTSIDE RECORDS SUMMARY | 2020-08-15 02:46 | CCD | Continuity of Care Document ---
Author Author Arash WALLER M.D. 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 Onset: 015 Benign essential hypertension Arash Waller M.D. Onset: Gastroesophageal reflux disease Arash Waller M.D. Onset: 12/15/2014 Obstructive sleep apnea syndrome Arash Waller M.D. Onset: 12/15/2014 Schizoaffective schizophrenia Arash Waller M.D. Onset: Essential hypertension Lab Schedule Onset: 05/25/2015 Social History Type Date Description Comments Sex Unknown ETOH Use Denies alcohol use Tobacco Use Start: Unknown Patient has never smoked Allergies, Adverse Reactions, Alerts Description No Known Drug Allergies Medications Active Medications SIG Qnty Indications Ordering Provide r Date Atorvastatin Calcium 10mg Tablets 1/2 tab by mouth every day 45tabs Arash Waller M.D. 05/13/20 20 Ferrous Sulfate 325(65Fe) mg Table ts 1 by mouth every day 90tabs Arash Waller M.D. 08/13/2019 Glimepiride 1mg Tablets take 2 tablets by mouth every day before breakfast 180tabs Arash Waller M.D. 06/03/2019 Trulicity 1.5mg/0.5ML Solution Pen -Inject 1 injection weekly 6ml Arash Waller M.D. 04/08/20 19 Grabiel Contour Blood Glucose Test Strips Strips test twice a day as directed dx:e11.9 200units Matthew Waller M.D. 08/30/2018 Simethicone 125mg Capsules 1 capsule after each meal and before bed. 120capadolph E78.5 Arash Waller M.D. 1 08/31/2015 Multivitamins Capsules 1 by mouth every day 30salazar Waller M.D. 12/10/2015 Metformin HCL 850mg Tablets take one tablet by mouth twice a day 180rosie Waller M.D. 11/18/2014 Fenofibrate 160mg Tablets take one tablet by mouth every day 90rosie Waller M.D. 06/04/20 [address] one twice daily 180salazar Waller M.D. 05/22/2014 Bethanechol Chloride 25mg Tablets 1 by mouth three times a day 270rosie Waller M.D. Geodon 40mg Capsules 1 by mouth every morning and 2 by mouth every evening 90salazar barkley M.D. Tamsulosin HCL 0.4mg Capsules 1 by mouth every day 90salazar Waller M.D. Vitamin B-1 100mg Tablets 1 P O qd Unknown Vitamin B-12 1000mcg Tablets 1 PO qd Unknown Vitamin D (Cholecalciferol) 1000Unit Tablets 1 PO qd Unknown Medications Administered in Office Medication SIG Qnty Indications Ordering Provider Date Administration Of Flu Vaccine Inj ection Arash Waller M.D. 05/04/2017 Immunizations CPT Code Status Date Vaccine Lot # U-Flu Given 03/10/2020 Influenza,Unspecified U-Flu Given 04/24/2018 Influenza,Unspecified [id number] Given 05/04/2017 Influenza Vaccin e Quadrivalent Preser/Antibiotic Free Im Use [id number] Given 04/10/2014 Influenza Virus Vaccine 26282 Given 04/23/2013 Influenza Virus Vaccine 29592 Given 04/25/2012 Influenza Virus Vaccine 14169 Given 03/24/2011 Influenza Virus Vaccine 90386 Given 03/24/2011 Influenza Virus Vaccine 28966 Given 03/24/2010 Influenza Virus Vaccine 63267 Given 03/24/2010 Influenza Virus Vaccine 20972 Given 07/17/2009 Adacel- Tetanus Diphtheria P ertussis (Age64 & Under) U-Flu Given Unknown Influenza,Unspecified Vital Signs Date Vital Result Comment 05/13/2020 11:13am BP Systolic 130 mmHg BP Diastolic 72 mmHg Heart Rate 78 /min Height 70 inches 5'10" Weight 238.00 lb BMI (Body Mass Index) 34.1 kg/m2 08/13/2019 3:06pm BP Systolic 138 mmHg BP Diastolic 80 mmHg Heart Rate 78 /min Height 70 inches 5'10" Weight 234.00 lb BMI (Body Mass Index) 33.6 kg/m2 Results Test Acquired Date Facility Test Result H/L Range Note CBC With Differential 05/05/2020 [facility] [place] WBC 7.7 x10E3/uL 3.4-10.8 RBC 4.37 x10E6/uL 4.14-5.80 Hemoglobin 11.6 g/dL Low 13.0-17.7 Hematocrit 34.6 % Low 37.5-51.0 MCV 79 fL 79-97 MCH 26.5 pg Low 26.6-33.0 MCHC 33.5 g/dL 31.5-35.7 RDW 14.2 % 11.6-15.4 Platelets 389 x10E3/uL 150-450 Neutrophils 55 % Not Estab. Lymphs 32 % Not Estab. Monocytes 10 % Not Estab. Eos 2 % Not Estab. Basos 1 % Not Estab. Immature Cells TNP Neutrophils (Absolute) 4.3 x10E3/uL 1.4-7.0 Lymphs (Absolute) 2.4 x10E3/uL 0.7-3.1 Monocytes(Absolute) 0.8 x10E3/uL 0.1-0.9 Eos (Absolute) 0.1 x10E3/uL 0.0-0.4 Baso (Absolute) 0.1 x10E3/uL 0.0-0.2 Immature Granulocytes 0 % Not Estab. Immature Grans (Abs) 0.0 x10E3/uL 0.0-0.1 NRBC [facility] Hematology Comments: [place] Hemoglobin A1c 05/05/2020 [facility] Hemoglobin A1c 7.4 % High 4.8-5.6 1 Metabolic Panel (14), Comprehensive 05/05/2020 [facility] Glucose 117 mg/dL High 65-99 BUN 8 mg/dL 6-24 Creatinine 0.67 mg/dL Low 0.76-1.27 eGFR If NonAfricn Am 118 mL/min/1.73 >59 eGFR If Africn Am 136 mL/min/1.73 >59 BUN/Creatinine Ratio 12 9-20 Sodium 140 mmol/L 134-144 Potassium 4.1 mmol/L 3.5-5.2 Chloride 104 mmol/L 96-106 Carbon Dioxide, Total 20 mmol/L 20-29 Calcium 9.6 mg/dL 8.7-10.2 Protein, Total 6.8 g/dL 6.0-8.5 Albumin 4.4 g/dL 4.0-5.0 Globulin, Total 2.4 g/dL 1.5-4.5 A/G Ratio 1.8 1.2-2.2 Bilirubin, Total <0.2 mg/dL 0.0-1.2 Alkaline Phosphatase 55 IU/L 39-117 Ast (Sgot) 28 IU/L 0-40 Alt (SGPT) 38 IU/L 0-44 Lipid Panel 05/05/2020 [facility] Cholesterol, Total 175 mg/dL 100-199 Triglycerides 290 mg/dL High 0-149 HDL Cholesterol 40 mg/dL >39 VLDL Cholesterol Ramesh 48 mg/dL High 5-40 LDL Chol Calc (Nih) 87 mg/dL 0-99 Comment: [facility] Iron And Tibc 05/05/2020 [facility] Iron Bind.Cap.(Tibc) 367 g/dL 250-450 Uibc 327 g/dL 111-343 Iron 40 g/dL 38-169 Iron Saturation 11 % Low 15-55 Albumin/Creatinine Ratio, Random Urine 05/05/2020 [facility] Creatinine, Urine 21.7 mg/dL Not Estab. Albumin, Urine <3.0 ug/mL Not Estab. Alb/Creat Ratio <14 mg/gcreat 0-29 2 Laboratory test finding 05/05/2020 [facility] Ferritin, Serum 42 ng/mL 30-400 PDF [id number] SEE IMAGE Comprehensive Metabolic Profil 12/06/2019 [facility] Glucose 131 mg/dL High 65-99 BUN 8 mg/dL 6-24 Creatinine 0.69 mg/dL Low 0.76-1.27 eGFR If NonAfricn Am 116 mL/min/1.73 >59 eGFR If Africn Am 134 mL/min/1.73 >59 BUN/Creatinine Ratio 12 9-20 Sodium 139 mmol/L 134-144 Potassium 4.2 mmol/L 3.5-5.2 Chloride 102 mmol/L 96-106 Carbon Dioxide, Total 21 mmol/L 20-29 Calcium 9.7 mg/dL 8.7-10.2 Protein, Total 7.0 g/dL 6.0-8.5 Albumin 4.6 g/dL 4.0-5.0 Globulin, Total 2.4 g/dL 1.5-4.5 A/G Ratio 1.9 1.2-2.2 Bilirubin, Total <0.2 mg/dL 0.0-1.2 Alkaline Phosphatase 49 IU/L 39-117 Ast (Sgot) 26 IU/L 0-40 Alt (SGPT) 37 IU/L 0-44 Lipid Panel 12/06/2019 [facility] Cholesterol, Total 170 mg/dL 100-199 Triglycerides 266 mg/dL High 0-149 HDL Cholesterol 45 mg/dL >39 VLDL Cholesterol Ramesh 53 mg/dL High 5-40 LDL Cholesterol Calc 72 mg/dL 0-99 Comment: TNP Laboratory test finding 12/06/2019 [facility] TSH 3.010 uIU/mL 0.450-4.500 CBC With Differential/Platelet 12/06/2019 [facility] [place] WBC 8.6 x10E3/uL 3.4-10.8 RBC 4.66 x10E6/uL 4.14-5.80 Hemoglobin 12.3 g/dL Low 13.0-17.7 Hematocrit 37.5 % 37.5-51.0 MCV 81 fL 79-97 MCH 26.4 pg Low 26.6-33.0 MCHC 32.8 g/dL 31.5-35.7 RDW 14.4 % 11.6-15.4 Platelets 471 x10E3/uL High 150-450 Neutrophils 63 % Not Estab. Lymphs 28 % Not Estab. Monocytes 7 % Not Estab. Eos 1 % Not Estab. Basos 1 % Not Estab. Immature Cells TNP Neutrophils (Absolute) 5.4 x10E3/uL 1.4-7.0 Lymphs (Absolute) 2.4 x10E3/uL 0.7-3.1 Monocytes(Absolute) 0.6 x10E3/uL 0.1-0.9 Eos (Absolute) 0.1 x10E3/uL 0.0-0.4 Baso (Absolute) 0.1 x10E3/uL 0.0-0.2 Immature Granulocytes 0 % Not Estab. Immature Grans (Abs) 0.0 x10E3/uL 0.0-0.1 NRBC TNP Hematology Comments: TNP Hemoglobin A1c 12/06/2019 [facility] Hemoglobin A1c 7.8 % High 4.8-5.6 3 Laboratory test finding 12/06/2019 [facility] Prostate-Specific Ag, Serum 0.4 ng/mL 0.0-4.0 4 PDF [id number] SEE IMAGE 1 Prediabetes: 5.7 - 6.4 Diabetes: >6.4 Glycemic control for adults with diabetes: <7.0 2 Normal: 0 - 29 Moderately increased: 30 - 300 Severely increased: >300 3 Prediabetes: 5.7 - 6.4 Diabetes: >6.4 Glycemic control for adults with diabetes: <7.0 4 Nba ECLIA methodology. According to the [place] [employer], Serum PSA should decrease and remain at undetectable levels after radical prostatectomy. The AUA defines biochemical recurrence as an initial PSA value 0.2 ng/mL or greater followed by a subsequent confirmatory PSA value 0.2 ng/mL or greater. Values obtained with different assay methods or kits cannot be used interchangeably. Results cannot be interpreted as absolute evidence of the presence or absence of malignant disease. Procedures Date Code Description Status 09/25/2019 [id number] Diabetic Retinal Eye Exam Comple dillon 12/19/2018 [id number] Diabetic Retinal Eye Exam Comple dillon 03/28/2018 [id number] Diabetic Retinal Eye Exam Comple dillon 10/13/2016 [id number] Diabetic Retinal Eye Exam Comple dillon 02/25/2016 [id number] Diabetic Retinal Eye Exam Comple dillon 04/16/2015 [id number] Diabetic Retinal Eye Exam Comple dillon Medical Devices Description No Information Available Encounters Type Date Location Provider Dx Diagnosis Office Visit 05/13/2020 11:00a [facility] Arash Waller M.D. D64.9 Anemia, unspecified R26.81 Unsteadiness on feet G47.33 Obstructive sleep apnea (tomás lt) (pediatric) E11.9 Type 2 diabetes mellitus wit hout complications E78.5 Hyperlipidemia, unspecified K21.9 Gastro-esophageal reflux dis ease without esophagitis E07.9 Disorder of thyroid, unspeci fied Assessments Date Code Description Provider 05/13/2020 D64.9 Anemia, unspecified Arash FTaqueria zamora M.D. 05/13/2020 R26.81 Unsteadiness on feet Arash TaneshaTaqueria barkley M.D. 05/13/2020 G47.33 Obstructive sleep apnea (adult) (pediatric) Arash Waller M.D. 05/13/2020 E11.9 Type 2 diabetes mellitus without complications Arash Waller M.D. 05/13/2020 E78.5 Hyperlipidemia, unspecified Rosa Waller M.D. 05/13/2020 K21.9 Gastro-esophageal reflux disease without esophagitis Arash Waller M.D. 05/13/2020 E07.9 Disorder of thyroid, unspecified Arash Waller M.D. 04/07/2020 I10 Essential (primary) hypertension Arash Waller M.D. 04/07/2020 G47.33 Obstructive sleep apnea (adult) (pediatric) Arash Waller M.D. 04/07/2020 E11.9 Type 2 diabetes mellitus without complications Arash Waller M.D. 04/07/2020 E78.5 Hyperlipidemia, unspecified Rosa Waller M.D. 03/11/2020 I10 Essential (primary) hypertension Arash Waller M.D. 03/11/2020 G47.33 Obstructive sleep apnea (adult) (pediatric) Arash Waller M.D. 03/11/2020 E11.9 Type 2 diabetes mellitus without complications Arash Waller M.D. 03/11/2020 E78.5 Hyperlipidemia, unspecified Rosa Waller M.D. 01/30/2020 I10 Essential (primary) hypertension Arash Waller M.D. 01/30/2020 G47.33 Obstructive sleep apnea (adult) (pediatric) Arash Waller M.D. 01/30/2020 E11.9 Type 2 diabetes mellitus without complications Arash Waller M.D. 01/30/2020 E78.5 Hyperlipidemia, unspecified Rosa Waller M.D. 12/27/2019 I10 Essential (primary) hypertension Arash Waller M.D. 12/27/2019 G47.33 Obstructive sleep apnea (adult) (pediatric) Arash Waller M.D. 12/27/2019 E11.9 Type 2 diabetes mellitus without complications Arash Waller M.D. 12/27/2019 E78.5 Hyperlipidemia, unspecified Rosa Waller M.D. 12/11/2019 E78.5 Hyperlipidemia, unspecified Rosa Waller M.D. 12/11/2019 E11.9 Type 2 diabetes mellitus without complications Arash Waller M.D. 12/11/2019 I10 Essential (primary) hypertension Arash Waller M.D. 12/11/2019 G47.33 Obstructive sleep apnea (adult) (pediatric) Arash Waller M.D. 12/11/2019 D64.9 Anemia, unspecified Arash zamora M.D. 12/11/2019 K21.9 Gastro-esophageal reflux disease without esophagitis Arash Waller M.D. 12/11/2019 Z91.81 History of falling Arash adams M.D. 11/21/2019 E78.5 Hyperlipidemia, unspecified Rosa Waller M.D. 11/21/2019 E11.9 Type 2 diabetes mellitus without complications Arash Waller M.D. 11/21/2019 I10 Essential (primary) hypertension Arash Waller M.D. 11/21/2019 G47.33 Obstructive sleep apnea (adult) (pediatric) Arash Waller M.D. Plan of Treatment Future Appointment(s):* 11/19/2020 8:30 am - [facility] 05/13/2020 - Arash Waller M.D.* D64.9 Anemia, unspecified * R26.81 Unsteadiness on feet * G47.33 Obstructive sleep apnea (adult) (pediatric) * E11.9 Type 2 diabetes mellitus without complications * E78.5 Hyperlipidemia, unspecified * K21.9 Gastro-esophageal reflux disease without esophagitis * E07.9 Disorder of thyroid, unspecified * * Comments:* 1. Anemia: I discussed this in great detail with his sister Sarah Beth who is her today. She feels that it is best to avoid further work up at this point due to COVID. He had a negative FIT test, we discussed that further work up would be needed. Since iron stores have improved she feels monitoring is appropriate.2. Unsteadiness on feet: His gait is worse. Fall precaution discussed. Following with Dr. Valle at [facility].3. Obstructive sleep apnea: Patient is using CPAP and doing well.4. Type 2 diabetes mellitus: Last A1c was 7.4. He will continue with Metformin and glyburide. We will continue to monitor and recheck at his next visit.5. Hyperlipidemia: Elevated TGs, which is related to his uncontrolled diabetes. I started him on atorvastatin 10 mg 1/2 tablet by mouth daily. Discussed advantage of taking atorvastatin in detail. Also to watch diet (eat apple and a piece of cheese, etc.). We will monitor and recheck on his next visit. 6. GERD: Appears to be doing well now, will continue and monitor.7. Thyroid disorder: Await labs.Ongoing cares: I am going to see him again in about 4 months with CMP, lipids, TSH, HbA1c, CBC and iron panel. If he has new problems or issues sooner he will let us know. Functional Status Description No Information Available Mental Status Description No Information Available Referrals Description No Information Available
--- OUTSIDE RECORDS SUMMARY | 2020-08-15 02:46 | CCD ---
Author Author [facility] Organization [facility] Address Unknown Phone Unavailable Care Team Providers Care Cleaner Industrial Name Role Phone Gee Helms, Martinez Luna MD, FACS Unavailable Unavailable Flynn Scooter, Martinez Luna MD, FACS Unavailable Unavailable Flynn Scooter, Martinez Luna MD, FACS Unavailable Unavailable Flynn Scooter, Martinez Luna MD, FACS Unavailable Unavailable Flynn Helms, Martinez Luna MD, FACS Unavailable Unavailable Flynn Helms, Martinez Luna MD, FACS Unavailable Unavailable Flynn Helms, Martinez Luna MD, FACS Unavailable Unavailable Flynn Scooter, Martinez Luna MD, FACS Unavailable Unavailable Flynn Scooter, Martinez Luna MD, FACS Unavailable Unavailable Flynn Scooter, Martinez Luna MD, FACS Unavailable Unavailable Flynn Scooter, Martinez Luna MD, FACS Unavailable Unavailable Flynn Scooter, Martinez Luna MD, FACS Unavailable Unavailable Flynn Scooter, Martinez Luna MD, FACS Unavailable Unavailable Flynn Scooter, Martinez Luna MD, FACS Unavailable Unavailable Flynn Scooter, Martinez Luna MD, FACS Unavailable Unavailable Gee Helms, Martinez Lnua MD, FACS Unavailable Unavailable Gee Helms, Martinez Luna MD, FACS Unavailable Unavailable Flynn Scooter, Martinez Luna MD, FACS Unavailable Unavailable Flynn Helms, Martinez Luna MD, FACS Unavailable Unavailable Flynn Helms, Martinez Luna MD, FACS Unavailable Unavailable Flynn Helms, Martinez Luna MD, FACS Unavailable Unavailable Flynn Helms, Martinez Luna MD, FACS Unavailable Unavailable Flynn Helms, Martinez Luna MD, FACS Unavailable Unavailable Flynn Helms, Martinez Luna MD, FACS Unavailable Unavailable Flynn Helms, Martinez Luna MD, FACS Unavailable Unavailable Flynn Helms, Martinez Luna MD, FACS Unavailable Unavailable Flynn Helms, Martinez Luna MD, FACS Unavailable Unavailable Flynn Helms, Martinez Luna MD, FACS Unavailable Unavailable Flynn Helms, Martinez Luna MD, FACS Unavailable Unavailable Flynn Helms, Martinez Luna MD, FACS Unavailable Unavailable Flynn Helms, Martinez Luna MD, FACS Unavailable Unavailable Flynn Helms, Martinez Luna MD, FACS Unavailable Unavailable Flynn Helms, Martinez Luna MD, FACS Unavailable Unavailable Flynn Helms, Martinez Luna MD, FACS Unavailable Unavailable Rasheed MEADE, A Ben Unavailable Rasheed MEADE, A Ben Unavailable Rasheed MEADE, A Ben Unavailable Rasheed MEADE, A Ben Unavailable Rasheed MEADE, A Ben Unavailable Rasheed MEADE, A Ben Unavailable Rasheed MEADE, A Ben Unavailable Rasheed MEADE, A Ben Unavailable Rasheed MEADE, A Ben Unavailable Rasheed MEADE, A Ben Unavailable Rasheed MEADE, A Ben Unavailable Rasheed MEADE, A Ben Unavailable Rasheed MEADE, A Ben Unavailable Rasheed MEADE, A Ben Unavailable Rasheed MEADE, A Ben Unavailable Rasheed MEADE, A Ben Unavailable Rasheed MEADE, A Ben Unavailable Rasheed MEADE, A Ben Unavailable Rasheed MEADE, A Ben Unavailable Rasheed MEADE, A Ben Unavailable Rasheed MD, A Ben Unavailable Rasheed MD, A Ben Unavailable Rasheed MD, A Ben Unavailable Rasheed MD, A Ben Unavailable Rasheed MD, A Ben Unavailable Rasheed MD, A Ben Unavailable Rasheed MD, A Ben Unavailable Rasheed MD, A Ben Unavailable Rasheed MD, A Ben Unavailable Rasheed MD, A Ben Unavailable Rasheed MD, A Ben Unavailable Rasheed MD, A Ben Unavailable Rasheed MD, A Ben Unavailable Rasheed MD, A Ben Unavailable Rasheed MD, A Ben Unavailable Rasheed MD, A Ben Unavailable Rasheed MEADE, A Ben Unavailable Rasheed MEADE, A Ben Unavailable Rasheed MEADE, A Ben Unavailable Rasheed MEADE, A Ben Unavailable Rasheed MEADE, A Ben Unavailable Rasheed MEADE, A Ben Unavailable Rasheed MEADE, A Ben Unavailable Rasheed MEADE, A Ben Unavailable Tanesha Lawler MD Unavailable Unavailable White F Arashjudi MEADE Unavailable Unavailable White F Arashjudi MEADE Unavailable Unavailable White, F Arash Unavailable Unavailable White, F Arash Unavailable Unavailable White F Arash Unavailable Unavailable White F Arash Unavailable Unavailable White F Arash Unavailable Unavailable White, F Arash Unavailable Unavailable White, F Arash Unavailable Unavailable White, F Aarsh Unavailable Unavailable White, F Arash Unavailable Unavailable White, F Arash Unavailable Unavailable White, F Arash Unavailable Unavailable White, F Arash Unavailable Unavailable White, F Arash Unavailable Unavailable White, F Arash Unavailable Unavailable White, F Arash Unavailable Unavailable White, F Arash Unavailable Unavailable White, F Arash Unavailable Unavailable White, F Arash Unavailable Unavailable White, F Arash Unavailable Unavailable White, F Arash Unavailable Unavailable White, F Arashjudi MEADE Unavailable Unavailable White, F Arashjudi MAEDE Unavailable Unavailable White F Arash MEADE Unavailable Unavailable White F Arash MEADE Unavailable Unavailable White F Arash MEADE Unavailable Unavailable White F Arash MEADE Unavailable Unavailable White F Arashjudi MEADE Unavailable Unavailable White F Arash MEADE Unavailable Unavailable White F Arash MEADE Unavailable Unavailable White F Arash MEADE Unavailable Unavailable White F Arash MEADE Unavailable Unavailable White F Arash MEADE Unavailable Unavailable White F Arash MEADE Unavailable Unavailable White F Arash MEADE Unavailable Unavailable White F Arash MEADE Unavailable Unavailable White F Arash MEADE Unavailable Unavailable White F Arash MEADE Unavailable Unavailable White F Arash MEADE Unavailable Unavailable White F Arash MEADE Unavailable Unavailable White F Arash MEADE Unavailable Unavailable Nuris F Arash MEADE Unavailable Unavailable Nuris F Arash MEADE Unavailable Unavailable Nuris F Arash MEADE Unavailable Unavailable White F Arash MEADE Unavailable Unavailable White F Arash MEADE Unavailable Unavailable White F Arash MEADE Unavailable Unavailable White F Arash MEADE Unavailable Unavailable White F Arash MEADE Unavailable Unavailable Nuris F Arash MEADE Unavailable Unavailable Nuris F Arash MEADE Unavailable Unavailable Nuris F Arash MEADE Unavailable Unavailable Nuris F Arash MEADE Unavailable Unavailable Nuris F Arash MEADE Unavailable Unavailable White F Arash MEADE Unavailable Unavailable White F Arash MEADE Unavailable Unavailable Nuris F Arash MEADE Unavailable Unavailable Nuris F Arash MEADE Unavailable Unavailable Nuris F Arash MEADE Unavailable Unavailable Nuris F Arash MEADE Unavailable Unavailable Nuris F Arash MEADE Unavailable Unavailable Tanesha Lawler MD Unavailable Unavailable Tanesha Lawler MD Unavailable Unavailable Tanesha Lawler MD Unavailable Unavailable Tanesha Lawler MD Unavailable Unavailable Tanesha Lawler MD Unavailable Unavailable Tanesha Lawler MD Unavailable Unavailable Tanesha Lawler MD Unavailable Unavailable Tanesha Lawler MD Unavailable Unavailable WhiteTanesha MD Unavailable Unavailable Tanesha Lawler MD Unavailable Unavailable AliSuzanna MD Unavailable Unavailable AliSuzanna MD Unavailable Unavailable AliSuzanna MD Unavailable Unavailable Ali, Suzanna MEADE Unavailable Unavailable Ali, Suzanna MEADE Unavailable Unavailable Ali, Suzanna MEADE Unavailable Unavailable Ali, Suzanna MEADE Unavailable Unavailable Ali, Suzanna MEADE Unavailable Unavailable Ali, Suzanna MEADE Unavailable Unavailable Ali, Suzanna MEADE Unavailable Unavailable Ali, Suzanna MEADE Unavailable Unavailable Ali, Suzanna MEADE Unavailable Unavailable Ali, Suzanna MEADE Unavailable Unavailable Ali, Suzanna MEADE Unavailable Unavailable Ali, Suzanna MEADE Unavailable Unavailable Ali, Suzanna MEADE Unavailable Unavailable Ali, Suzanna MEADE Unavailable Unavailable Ali, Suzanna MEADE Unavailable Unavailable Ali, Suzanna MEADE Unavailable Unavailable Ali, Suzanna MEADE Unavailable Unavailable Ali, Suzanna MEADE Unavailable Unavailable Ali, Suzanna MEADE Unavailable Unavailable Ali, Suzanna MEADE Unavailable Unavailable Ali, Suzanna MEADE Unavailable Unavailable Ali, Suzanna MEADE Unavailable Unavailable Ali, Suzanna MEADE Unavailable Unavailable Ali, Suzanna MEADE Unavailable Unavailable Ali, Suzanna MEADE Unavailable Unavailable Ali, Suzanna MEADE Unavailable Unavailable Ali, Suzanna MEADE Unavailable Unavailable Ali, Suzanna MEADE Unavailable Unavailable Ali, Suzanna MEADE Unavailable Unavailable Ali, Suzanna MEADE Unavailable Unavailable Ali, Suzanna MEADE Unavailable Unavailable Ali, Suzanna MEADE Unavailable Unavailable Ali, Suzanna MEADE Unavailable Unavailable Ali, Suzanna MEADE Unavailable Unavailable Ali, Suzanna MEADE Unavailable Unavailable Ali, Suzanna MEADE Unavailable Unavailable Ali, Suzanna MEADE Unavailable Unavailable Ali, Suzanna MEADE Unavailable Unavailable Ali, Suzanna MEADE Unavailable Unavailable Ali, Suzanna MEADE Unavailable Unavailable Ali, Suzanna MEADE Unavailable Unavailable Ali, Suzanna MEADE Unavailable Unavailable Ali, Suzanna MEADE Unavailable Unavailable Ali, Suzanna MEADE Unavailable Unavailable Ali, Suzanna MEADE Unavailable Unavailable Ali, Suzanna MEADE Unavailable Unavailable Marina, L Isabella THERAPY ASSISTANT Unavailable Unavailable Marina, L Isabella THERAPY ASSISTANT Unavailable Unavailable Marina, L Isabella THERAPY ASSISTANT Unavailable Unavailable Marina, L Isabella THERAPY ASSISTANT Unavailable Unavailable Marina, L Isabella THERAPY ASSISTANT Unavailable Unavailable Marina, L Isabella THERAPY ASSISTANT Unavailable Unavailable Marina, L Isabella THERAPY ASSISTANT Unavailable Unavailable Marina, L Isabella THERAPY ASSISTANT Unavailable Unavailable Marina, L Isabella THERAPY ASSISTANT Unavailable Unavailable Marina, L Isabella THERAPY ASSISTANT Unavailable Unavailable Marina, L Isabella THERAPY ASSISTANT Unavailable Unavailable Marina, L Isabella THERAPY ASSISTANT Unavailable Unavailable Marina, L Isabella THERAPY ASSISTANT Unavailable Unavailable Marina, L Isabella THERAPY ASSISTANT Unavailable Unavailable Marina, L Isabella THERAPY ASSISTANT Unavailable Unavailable Marina, L Isabella THERAPY ASSISTANT Unavailable Unavailable Marina, L Isabella THERAPY ASSISTANT Unavailable Unavailable Marina, L Isabella THERAPY ASSISTANT Unavailable Unavailable Marina, L Isabella THERAPY ASSISTANT Unavailable Unavailable Marina, L Isabella THERAPY ASSISTANT Unavailable Unavailable Marina, L Isabella THERAPY ASSISTANT Unavailable Unavailable Marina, L Isabella THERAPY ASSISTANT Unavailable Unavailable Re-disclosure Warning The records that you are about to access may contain information from federally-assisted alcohol or drug abuse programs. If such information is present, then the following federally mandated warning applies: This information has been disclosed to you from records protected by federal confidentiality rules (42 CFR part 2). The federal rules prohibit you from making any further disclosure of this information unless further disclosure is expressly permitted by the written consent of the person to whom it pertains or as otherwise permitted by 42 CFR part 2. A general authorization for the release of medical or other information is NOT sufficient for this purpose. The Federal rules restrict any use of the information to criminally investigate or prosecute any alcohol or drug abuse patient.The records that you are about to access may contain highly sensitive health information, the redisclosure of which is protected by Article 27-F of the [facility] Public Health law. If you continue you may have access to information: Regarding HIV / AIDS; Provided by facilities licensed or operated by the [facility] Office of Mental Health; or Provided by the [facility] Office for People With Developmental Disabilities. If such information is present, then the following [facility] mandated warning applies: This information has been disclosed to you from confidential records which are protected by state law. State law prohibits you from making any further disclosure of this information without the specific written consent of the person to whom it pertains, or as otherwise permitted by law. Any unauthorized further disclosure in violation of state law may result in a fine or group home sentence or both. A general authorization for the release of medical or other information is NOT sufficient authorization for further disc losure. Allergies and Adverse Reactions Type Description Substance Reaction Status Data Source(s ) Drug Class NO KNOWN ALLERGIES NO KNOWN ALLERGIES [facility] Allergy to substance No Known Allergies No known allergies (situation ) [place] (Jeremy Helms MD [facility]) Family History Family Member Name Family Member Gender Family Member Status Date o f Status Description Data Source(s) Unknown Male Problem [facility] ([facility] Unknown Female Problem MEDENT ([facility]) both sides, father, mat grandmother most severe. Mother does not have DM 2. Unknown Female Problem MEDENT (Darrel Fry MD, ) Encounters Encounter Providers Location Date Indications Data Source(s ) Outpatient Attender: Ben Iqbal MD 09/09/2020 12:00:00 A [facility] Outpatient Attender: Ben Iqbal MD [id number] 2019 12:00:00 AM EST - 06/05/2020 11:57:21 AM EST Demyelinating disease of central nervous system, unspecified [facility] Demyelinating disease of central nervous system, unspecified Outpatient Attender: Ben Iqbal MD 05/18/2020 12:00:00 A [facility] Outpatient Attender: rAash Sanders 05/13 11:00:00 AM EDT MEDENT ([facility] ) Outpatient Attender: Isabella Luna/Mio/Aren/Jennifer 03/12/2020 11:30:00 AM EDT MED[facility] ([facility] ) Outpatient Attender: Suzanna Valle MD Main office - [place] 02/18/2020 11:45:00 AM EDT MEDENT ([facility]) Outpatient<td ID="[email or web address]">9 Month Follow-Up</td><td>Jeremy Mejia MD, FACS</td><td>Jeremy Mejia MD [facility]</td><td>09/25/2019</td><td><content ID="[email or web address]">Assessment of Taking Medication For Diabetes Long-term Use of Oral Hypoglycemics</content>, <content ID="encounterDiagnosisID0-1">Diabetes Mellitus Type 2 Without Complication</content>, <content ID="encounterDiagnosisID0-2">Dry Eye Syndrome Both Eyes</content>, <content ID="encounterDiagnosisID0-3">Vitreous Disorders Degeneration</content></td> Attender: Jeremy Helms MD, FACS Jeremy Mejia MD [facility] 09/25/2019 07:31:00 AM EDT - 09/25/2019 08:03:00 AM ED T Assessment of Taking Medication For Diabetes Long-term Use of Oral HypoglycemicsVitreous Disorders DegenerationDiabetes Mellitus Type 2 Without ComplicationDry Eye Syndrome Both Eyes [place] (Jeremy Helms MD [facility]) Assessment of Taking Medication For Diab etes Long-term Use of Oral Hypoglycemics Vitreous Disorders Degeneration Diabetes Mellitus Type 2 Without Complic ation Dry Eye Syndrome Both Eyes Immunizations Vaccine Date Status Description Data Source(s) This CVX code allows reporting of a vacc ination when formulation is unknown (for example, when recording a Influenza vaccination when noted on a vaccination card) 03/10/2020 04:06:00 PM EDT completed MEDEN T ([facility]) INFLUENZA VIRUS VACCINE QUADRIVALENT (6 MOS AN D UP) 03/10/2020 12:00:00 AM EDT completed [facility] Medications Medication Brand Name Start Date Product Form Dose Route Admi nistrative Instructions Pharmacy Instructions Status Indications Reaction Description Data Source(s) BLOOD SUGAR DIAGNOSTIC 08/13/2020 12:00:00 AM EST strip 200 USE TWO TIMES A DAY DIRECTED USE TWO TIMES A DAY DIRECTED SOLD: 08/13/2020 [facility] . UNIT 08/10/2020 12:00:00 AM EST Adhesive Patch, Medicat ed 200 USE TWO TIMES A DAY DIRECTED USE TWO TIMES A DAY DIRECTED SOLD: 08/12/2020 [facility] Fenofibrate 160 MG Oral Tablet FENOFIBRATE 08/10/2020 12:00:00 AM EST tablet 90 TAKE ONE TABLET BY MOUTH EVERY DAY TAKE ONE TABLET BY MOUTH EVERY DAY SOLD: 08/12/2020 [facility] atorvastatin 10 MG Oral Tablet Atorvastatin Calcium 05/13/2020 1 2:00:00 AM EDT ORAL active MEDENT ( [facility]) atorvastatin 10 MG Oral Tablet ATORVASTATIN CALCIUM 05/13/2020 1 2:00:00 AM EDT tablet 45 TAKE ONE-HALF TABLET BY MOUTH EV HERMILO DAY TAKE ONE-HALF TABLET BY MOUTH EVERY DAY SOLD: 07/30/2020 [facility] atorvastatin 10 MG Oral Tablet ATORVASTATIN CALCIUM 05/13/2020 1 2:00:00 AM EDT tablet 45 TAKE ONE-HALF TABLET BY MOUTH EV HERMILO DAY TAKE ONE-HALF TABLET BY MOUTH EVERY DAY SOLD: 05/14/2020 [facility] 0.4 mg 05/11/2020 12:00:00 AM EDT capsule 90 TAKE ONE CAPSULE BY MOUTH EVERY DAY TAKE ONE CAPSULE BY MOUTH EVERY DAY SOLD: 08/12/2020 [facility] 0.4 mg 05/11/2020 12:00:00 AM EDT capsule 90 TAKE ONE CAPSULE BY MOUTH EVERY DAY TAKE ONE CAPSULE BY MOUTH EVERY DAY SOLD: 05/14/2020 [facility] 40 mg 04/28/2020 12:00:00 AM EDT capsule 90 TAKE ONE CAPSULE BY MOUTH THREE TIMES A DAY TAKE ONE CAPSULE BY MOUTH THREE TIMES A DAY SOLD: 04/30/2020 [facility] 40 mg 04/28/2020 12:00:00 AM EDT capsule 90 TAKE ONE CAPSULE BY MOUTH THREE TIMES A DAY TAKE ONE CAPSULE BY MOUTH THREE TIMES A DAY SOLD: 07/02/2020 [facility] 40 mg 04/28/2020 12:00:00 AM EDT capsule 90 TAKE ONE CAPSULE BY MOUTH THREE TIMES A DAY TAKE ONE CAPSULE BY MOUTH THREE TIMES A DAY SOLD: 05/31/2020 [facility] 40 mg 04/28/2020 12:00:00 AM EDT capsule 90 TAKE ONE CAPSULE BY MOUTH THREE TIMES A DAY TAKE ONE CAPSULE BY MOUTH THREE TIMES A DAY SOLD: 08/03/2020 [facility] 1.5 mg/0.5 mL 03/10/2020 12:00:00 AM EDT pen injector 6 INJECT WEEKLY INJECT WEEKLY SOLD: 03/12/2020 [facility] 1.5 mg/0.5 mL 03/10/2020 12:00:00 AM EDT pen injector 6 INJECT WEEKLY INJECT WEEKLY SOLD: 06/03/2020 [facility] CPAP 03/03/2020 12:00:00 AM EDT active MEDENT ([facility], ) . UNIT 01/22/2020 12:00:00 AM EDT Misc 200 TEST TWO TIMES A DAY DIRECTED TEST TWO TIMES A DAY DIRECTED SOLD: 01/25/2020 [facility] BLOOD SUGAR DIAGNOSTIC 01/22/2020 12:00:00 AM EDT strip 200 TEST TWO TIMES A DAY DIRECTED TEST TWO TIMES A DAY DIRECTED SOLD: 04/30/2020 [facility] 40 mg 01/13/2020 12:00:00 AM EDT capsule,delayed release (DR/EC) 180 TAKE ONE CAPSULE BY MOUTH TWICE A DAY TAKE ONE CAPSULE BY MOUTH TWICE A DAY SOLD: 04/13/2020 [facility] 40 mg 01/13/2020 12:00:00 AM EDT capsule,delayed release (DR/EC) 180 TAKE ONE CAPSULE BY MOUTH TWICE A DAY TAKE ONE CAPSULE BY MOUTH TWICE A DAY SOLD: 01/15/2020 [facility] 40 mg 01/13/2020 12:00:00 AM EDT capsule,delayed release (DR/EC) 180 TAKE ONE CAPSULE BY MOUTH TWICE A DAY TAKE ONE CAPSULE BY MOUTH TWICE A DAY SOLD: 07/14/2020 [facility] 0.05 % 12/31/2019 12:00:00 AM EDT dropperette 180 INSTILL ONE DROP IN EACH EYE TWICE A DAY INSTILL ONE DROP IN EACH EYE TWICE A DAY SOLD: 01/03/2020 [facility] 0.05 % 12/31/2019 12:00:00 AM EDT dropperette 180 INSTILL ONE DROP IN EACH EYE TWICE A DAY INSTILL ONE DROP IN EACH EYE TWICE A DAY SOLD: 07/02/2020 [facility] 0.05 % 12/31/2019 12:00:00 AM EDT dropperette 180 INSTILL ONE DROP IN EACH EYE TWICE A DAY INSTILL ONE DROP IN EACH EYE TWICE A DAY SOLD: 04/01/2020 [facility] glimepiride 1 MG Oral Tablet GLIMEPIRIDE 12/18/2019 12:00:00 AM EDT t ablet 180 TAKE TWO TABLETS BY MOUTH EVERY DAY BEFORE BREAKFAST T JONATHAN TWO TABLETS BY MOUTH EVERY DAY BEFORE BREAKFAST SOLD: 06/22/2020 [facility] glimepiride 1 MG Oral Tablet GLIMEPIRIDE 12/18/2019 12:00:00 AM EDT t ablet 180 TAKE TWO TABLETS BY MOUTH EVERY DAY BEFORE BREAKFAST T JONATHAN TWO TABLETS BY MOUTH EVERY DAY BEFORE BREAKFAST SOLD: 03/25/2020 [facility] glimepiride 1 MG Oral Tablet GLIMEPIRIDE 12/18/2019 12:00:00 AM EDT t ablet 180 TAKE TWO TABLETS BY MOUTH EVERY DAY BEFORE BREAKFAST T JONATHAN TWO TABLETS BY MOUTH EVERY DAY BEFORE BREAKFAST SOLD: 12/21/2019 [facility] 25 mg 12/06/2019 12:00:00 AM EDT tablet 270 TAKE ONE TABLET BY MOUTH THREE TIMES A DAY TAKE ONE TABLET BY MOUTH THREE TIMES A DAY SOLD: 06/12/2020 [facility] 25 mg 12/06/2019 12:00:00 AM EDT tablet 270 TAKE ONE TABLET BY MOUTH THREE TIMES A DAY TAKE ONE TABLET BY MOUTH THREE TIMES A DAY SOLD: 12/11/2019 [facility] 25 mg 12/06/2019 12:00:00 AM EDT tablet 270 TAKE ONE TABLET BY MOUTH THREE TIMES A DAY TAKE ONE TABLET BY MOUTH THREE TIMES A DAY SOLD: 03/08/2020 [facility] 1.5 mg/0.5 mL 11/19/2019 12:00:00 AM EDT pen injector 2 INJECT ONCE WEEKLY INJECT ONCE WEEKLY SOLD: 02/12/2020 [facility] 1.5 mg/0.5 mL 11/19/2019 12:00:00 AM EDT pen injector 2 INJECT ONCE WEEKLY INJECT ONCE WEEKLY SOLD: 11/20/2019 [facility] 1.5 mg/0.5 mL 11/19/2019 12:00:00 AM EDT pen injector 2 INJECT ONCE WEEKLY INJECT ONCE WEEKLY SOLD: 12/16/2019 [facility] 1.5 mg/0.5 mL 11/19/2019 12:00:00 AM EDT pen injector 2 INJECT ONCE WEEKLY INJECT ONCE WEEKLY SOLD: 01/15/2020 [facility] 40 mg 11/08/2019 12:00:00 AM EDT capsule 60 TAKE ONE CAPSULE BY MOUTH THREE TIMES A DAY TAKE ONE CAPSULE BY MOUTH THREE TIMES A DAY SOLD: 11/11/2019 [facility] 40 mg 10/15/2019 12:00:00 AM EDT capsule 90 TAKE ONE CAPSULE BY MOUTH THREE TIMES A DAY TAKE ONE CAPSULE BY MOUTH THREE TIMES A DAY SOLD: 10/18/2019 [facility] 40 mg 10/15/2019 12:00:00 AM EDT capsule 90 TAKE ONE CAPSULE BY MOUTH THREE TIMES A DAY TAKE ONE CAPSULE BY MOUTH THREE TIMES A DAY SOLD: 03/01/2020 [facility] 40 mg 10/15/2019 12:00:00 AM EDT capsule 90 TAKE ONE CAPSULE BY MOUTH THREE TIMES A DAY TAKE ONE CAPSULE BY MOUTH THREE TIMES A DAY SOLD: 04/01/2020 [facility] 40 mg 10/15/2019 12:00:00 AM EDT capsule 90 TAKE ONE CAPSULE BY MOUTH THREE TIMES A DAY TAKE ONE CAPSULE BY MOUTH THREE TIMES A DAY SOLD: 11/30/2019 [facility] 40 mg 10/15/2019 12:00:00 AM EDT capsule 90 TAKE ONE CAPSULE BY MOUTH THREE TIMES A DAY TAKE ONE CAPSULE BY MOUTH THREE TIMES A DAY SOLD: 01/31/2020 [facility] . UNIT 10/15/2019 12:00:00 AM EDT Misc 200 TEST TWO TIMES A DAY DIRECTED TEST TWO TIMES A DAY DIRECTED SOLD: 10/18/2019 [facility] 40 mg 10/15/2019 12:00:00 AM EDT capsule 90 TAKE ONE CAPSULE BY MOUTH THREE TIMES A DAY TAKE ONE CAPSULE BY MOUTH THREE TIMES A DAY SOLD: 12/31/2019 [facility] Cyclosporine 0.5 MG/ML Ophthalmic Suspen brissa [Restasis] Restasis 0.05% Ophthalmic Emulsion Restasis 0.05% Ophthalmic Emulsion 09/25/2019 12:00:00 AM EDT active Cyclospo rine 0.5 MG/ML Ophthalmic Suspension [Restasis] [place] (Jeremy Helms MD [facility]) 160 mg 08/14/2019 12:00:00 AM EST tablet 90 TAKE ONE TABLET BY MOUTH EVERY DAY TAKE ONE TABLET BY MOUTH EVERY DAY SOLD: 11/11/2019 [facility] Metformin hydrochloride 850 MG Oral Tablet METFORMIN HCL 08/14/2019 12:00:00 AM EST tablet 180 TAKE ONE TABLET BY MOUTH TWI CE A DAY WITH FOOD TAKE ONE TABLET BY MOUTH TWICE A DAY WITH FOOD SOLD: 05/20/2020 [facility] 850 mg 08/14/2019 12:00:00 AM EST tablet 180 TAKE ONE TABLET BY MOUTH TWICE A DAY WITH FOOD TAKE ONE TABLET BY MOUTH TWICE A DAY WITH FOOD SOLD: 020 [facility] 325 mg (65 mg iron) 08/14/2019 12:00:00 AM EST tablet 90 TAKE ONE TABLET BY MOUTH EVERY DAY TAKE ONE TABLET BY MOUTH EVERY DAY SOLD: 11/15/2019 [facility] 325 mg (65 mg iron) 08/14/2019 12:00:00 AM EST tablet 90 TAKE ONE TABLET BY MOUTH EVERY DAY TAKE ONE TABLET BY MOUTH EVERY DAY SOLD: 08/15/2019 [facility] 160 mg 08/14/2019 12:00:00 AM EST tablet 90 TAKE ONE TABLET BY MOUTH EVERY DAY TAKE ONE TABLET BY MOUTH EVERY DAY SOLD: 02/12/2020 [facility] Fenofibrate 160 MG Oral Tablet FENOFIBRATE 08/14/2019 12:00:00 AM EST tablet 90 TAKE ONE TABLET BY MOUTH EVERY DAY TAKE ONE TABLET BY MOUTH EVERY DAY SOLD: 05/14/2020 [facility] Metformin hydrochloride 850 MG Oral Tablet METFORMIN HCL 08/14/2019 12:00:00 AM EST tablet 180 TAKE ONE TABLET BY MOUTH TWI CE A DAY WITH FOOD TAKE ONE TABLET BY MOUTH TWICE A DAY WITH FOOD SOLD: 08/12/2020 [facility] 850 mg 08/14/2019 12:00:00 AM EST tablet 180 TAKE ONE TABLET BY MOUTH TWICE A DAY WITH FOOD TAKE ONE TABLET BY MOUTH TWICE A DAY WITH FOOD SOLD: [facility] 160 mg 08/14/2019 12:00:00 AM EST tablet 90 TAKE ONE TABLET BY MOUTH EVERY DAY TAKE ONE TABLET BY MOUTH EVERY DAY SOLD: 08/15/2019 [facility] 850 mg 08/14/2019 12:00:00 AM EST tablet 180 TAKE ONE TABLET BY MOUTH TWICE A DAY WITH FOOD TAKE ONE TABLET BY MOUTH TWICE A DAY WITH FOOD SOLD: [facility] ferrous sulfate 325 MG Oral Tablet Ferrous Sulfate 08/13/2019 12:00 :00 AM EST ORAL active [facility] ([facility]) 0.4 mg 08/12/2019 12:00:00 AM EST capsule 90 TAKE ONE CAPSULE BY MOUTH EVERY DAY TAKE ONE CAPSULE BY MOUTH EVERY DAY SOLD: 02/12/2020 [facility] 0.4 mg 08/12/2019 12:00:00 AM EST capsule 90 TAKE ONE CAPSULE BY MOUTH EVERY DAY TAKE ONE CAPSULE BY MOUTH EVERY DAY SOLD: 08/14/2019 [facility] 0.4 mg 08/12/2019 12:00:00 AM EST capsule 90 TAKE ONE CAPSULE BY MOUTH EVERY DAY TAKE ONE CAPSULE BY MOUTH EVERY DAY SOLD: 11/11/2019 [facility] 1.5 mg/0.5 mL 07/29/2019 12:00:00 AM EST pen injector 2 INJECT CONTENTS OF 1 PEN SUBCUTANEOUSLY ONCE A WEEK INJECT CONTENTS OF 1 PEN SUBCUTANEOUSLY ONCE A WEEK SOLD: 07/31/2019 [facility] 1.5 mg/0.5 mL 07/29/2019 12:00:00 AM EST pen injector 2 INJECT CONTENTS OF 1 PEN SUBCUTANEOUSLY ONCE A WEEK INJECT CONTENTS OF 1 PEN SUBCUTANEOUSLY ONCE A WEEK SOLD: 09/25/2019 [facility] 1.5 mg/0.5 mL 07/29/2019 12:00:00 AM EST pen injector 2 INJECT CONTENTS OF 1 PEN SUBCUTANEOUSLY ONCE A WEEK INJECT CONTENTS OF 1 PEN SUBCUTANEOUSLY ONCE A WEEK SOLD: 10/23/2019 [facility] 1.5 mg/0.5 mL 07/29/2019 12:00:00 AM EST pen injector 2 INJECT CONTENTS OF 1 PEN SUBCUTANEOUSLY ONCE A WEEK INJECT CONTENTS OF 1 PEN SUBCUTANEOUSLY ONCE A WEEK SOLD: 08/27/2019 [facility] glimepiride 1 MG Oral Tablet GLIMEPIRIDE 06/03/2019 12:00:00 AM EST ta blet 90 TAKE ONE TABLET BY MOUTH EVERY DAY BEFORE BREAKFAST TAKE ONE TABLET BY MOUTH EVERY DAY BEFORE BREAKFAST SOLD: 09/01/2019 [facility] glimepiride 1 MG Oral Tablet GLIMEPIRIDE 06/03/2019 12:00:00 AM EST ta blet 90 TAKE ONE TABLET BY MOUTH EVERY DAY BEFORE BREAKFAST TAKE ONE TABLET BY MOUTH EVERY DAY BEFORE BREAKFAST SOLD: 11/30/2019 [facility] glimepiride 1 MG Oral Tablet GLIMEPIRIDE 06/03/2019 12:00:00 AM EST ta blet 90 TAKE ONE TABLET BY MOUTH EVERY DAY BEFORE BREAKFAST TAKE ONE TABLET BY MOUTH EVERY DAY BEFORE BREAKFAST SOLD: 03/01/2020 [facility] 40 mg 04/10/2019 12:00:00 AM EDT capsule 90 TAKE ONE CAPSULE BY MOUTH THREE TIMES A DAY TAKE ONE CAPSULE BY MOUTH THREE TIMES A DAY SOLD: 07/01/2019 [facility] 40 mg 04/10/2019 12:00:00 AM EDT capsule 90 TAKE ONE CAPSULE BY MOUTH THREE TIMES A DAY TAKE ONE CAPSULE BY MOUTH THREE TIMES A DAY SOLD: 09/25/2019 [facility] 40 mg 04/10/2019 12:00:00 AM EDT capsule 90 TAKE ONE CAPSULE BY MOUTH THREE TIMES A DAY TAKE ONE CAPSULE BY MOUTH THREE TIMES A DAY SOLD: 08/27/2019 [facility] 40 mg 04/10/2019 12:00:00 AM EDT capsule 90 TAKE ONE CAPSULE BY MOUTH THREE TIMES A DAY TAKE ONE CAPSULE BY MOUTH THREE TIMES A DAY SOLD: 07/31/2019 [facility] 1.5 mg/0.5 mL 04/08/2019 12:00:00 AM EDT pen injector 2 INJECT CONTENS OF 1 PEN SUBCUTANEOUSLY ONCE A WEEK INJECT CONTENS OF 1 PEN SUBCUTANEOUSLY O NCE A WEEK SOLD: 07/01/2019 [facility] 40 mg 01/11/2019 12:00:00 AM EDT capsule,delayed release (DR/EC) 180 TAKE ONE CAPSULE BY MOUTH TWICE A DAY TAKE ONE CAPSULE BY MOUTH TWICE A DAY SOLD: 07/18/2019 [facility] 40 mg 01/11/2019 12:00:00 AM EDT capsule,delayed release (DR/EC) 180 TAKE ONE CAPSULE BY MOUTH TWICE A DAY TAKE ONE CAPSULE BY MOUTH TWICE A DAY SOLD: 10/15/2019 [facility] 0.05 % 01/04/2019 12:00:00 AM EDT dropperette 180 INSTILL ONE DROP OPHTHALMIC (EYE) TWICE A DAY IN EACH EYE INSTILL ONE DROP OPHTHALMIC (EYE) TWICE A DAY IN EACH EYE SOLD: 09/29/2019 [facility] 0.05 % 01/04/2019 12:00:00 AM EDT dropperette 180 INSTILL ONE DROP OPHTHALMIC (EYE) TWICE A DAY IN EACH EYE INSTILL ONE DROP OPHTHALMIC (EYE) TWICE A DAY IN EACH EYE SOLD: 07/01/2019 [facility] Cyclosporine 0.5 MG/ML Ophthalmic Suspen brissa [Restasis] Restasis 0.05% Ophthalmic Emulsion Restasis 0.05% Ophthalmic Emulsion 12/19/2018 12:00:00 AM EDT aborted Cyclospo rine 0.5 MG/ML Ophthalmic Suspension [Restasis] [facility] (Jeremy Helms MD [facility]) 25 mg 11/30/2018 12:00:00 AM EDT tablet 270 TAKE ONE TABLET BY MOUTH THREE TIMES A DAY TAKE ONE TABLET BY MOUTH THREE TIMES A DAY SOLD: 09/01/2019 [facility] 850 mg 09/07/2018 12:00:00 AM EST tablet 120 TAKE ONE TABLET BY MOUTH TWICE A DAY TAKE ONE TABLET BY MOUTH TWICE A DAY SOLD: 07/27/2019 [facility] Cyclosporine 0.5 MG/ML Ophthalmic Suspen brissa [Restasis] Restasis 0.05 % Emulsion Restasis 0.05 % Emulsion 07/02/2015 12:00:00 AM EST aborted Cyclosporine 0.5 MG/ML Ophthalmic Suspension [Restasis] [facility] (Jeremy Helms MD [facility]) Insurance Providers Payer name Policy type / Coverage type Policy ID Covered democrat ID Covered democrat's relationship to [place] Policy [place] Plan Information SHAWNA [id number] SP [id number] MEDICARE [id number] SP [id number] MEDICAID M [id number] Self [id number] MEDICARE A [id number] Self [id number] Medicare Part B [facility] Other 0 Se lf 0 MEDICAID [id number] SP [id number] Medicaid Medigap Part B [id number] Self [id number] Medicare [place] Medicare Primary [id number] Self [id number] MEDICARE [id number] SP [id number] A Medicaid Medigap Part B [id number] Self [id number] Medicare [place] Medicare Primary [id number] Self [id number] [place] [id number] Self [id number] Medicare - [place] Medicare Primary [id number] Self [id number] [place] [id number] Self [id number] Medicare - [place] Medicare Primary [id number] Self [id number] [place] [id number] Self [id number] Medicare - [place] Medicare Primary [id number] Self [id number] Medicaid Medigap Part B [id number] Self [id number] 10M [place] Primary [id number] Self [id number] Medicaid Medigap Part B [id number] Self [id number] Medicare [place] Medicare Primary [id number] Self [id number] Medicaid Medigap Part B 1 1 Self 1 1 Medicare [place] Primary Self MEDICAID [id number] SP [id number] SELF PAY UNAVAILABLE SP UNAVAILA BLE [place] Part [place] Self [place] Self MEDICARE - [place] MCR [id number] S [id number] [place] Med[place] Part B Self Medicare [facility] Medicare Primary Self MEDICAID S [id number] S [id number] MEDICARE P [id number] S [id number] A [id number] A Problems, Conditions, and Diagnoses Code Display Name Description Problem Type Effective Dates Data Source(s) 25418315 Obstructive sleep apnea syndrome Obstructive sle ep apnea syndrome Problem 03/12/2020 12:00:00 AM EDT [facility]) [id number] Neuromyelitis optica Neuromyelitis optica Problem 02/18/2020 12:00:00 AM EDT [facility] ([facility], ) 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, unspecified Congenital malformation of spinal cord, unspecified Diagnosis 06/05/2020 07:20:57 AM [facility] R33.9 Retention of urine, unspecified Retention of urine, un specified Diagnosis 06/05/2020 07:20:57 AM [facility] R27.8 Other lack of coordination Other lack of coordination Diagnosis 06/05/2020 07:20:57 AM [facility] H57.9 Unspecified disorder of eye and adnexa U nspecified disorder of eye and adnexa Diagnosis 06/05/2020 07:20:57 AM [facility] R26.9 Unspecified abnormalities of gait and mo bility Unspecified abnormalities of gait and mobility Diagnosis 06/05/2020 07:20:57 AM [facility] R27.0 Ataxia, unspecified Ataxia, unspecified Diagnosis 1 08/05/2019 07:20:57 AM [facility] G37.9 Demyelinating disease of central nervous system, unspecified Demyelinating disease of central nervous system, unspecified Diagnosis 2019 07:20:57 AM [facility] Surgeries/Procedures Procedure Description Date Indications Data Source(s) MRI Brain W/O Contrast, Followed By Contrast 0 12:00:00 AM EDT [facility] ([facility]) MRI Brain W/O Contrast, Followed By Contrast 0 12:00:00 AM EDT [facility] ([facility], ) MRI Spine Cervical W/O Contrast, Followed By Contrast 04/14/2020 12:00:00 AM EDT [facility] ([facility] ) MRI Spine Cervical W/O Contrast, Followed By Contrast 04/14/2020 12:00:00 AM EDT [facility] ([facility], ) MRI Spine Thoracic W/O Contrast, Followed By Contrast 04/14/2020 12:00:00 AM EDT [facility] ([facility]) MRI Spine Thoracic W/O Contrast, Followed By Contrast 04/14/2020 12:00:00 AM EDT [facility] ([facility]) Diabetic Retinal Eye Exam 09/25/2019 12:00:00 AM EDT [facility] ([facility]) History of the retina was abnormal 12/19/2018 History o f the retina was abnormal 12/19/2018 09/25/2019 12:00:00 AM EDT [facility] (Lei id Martinez Helms MD [facility]) Comprehensive eye exam established patient Comprehensi ve eye exam established patient 09/25/2019 12:00:00 AM EDT [facility] (Lei Helms MD [facility]) Results ID Date Data Source [id number] 06/07/2020 03:55:26 PM [facility] Name Value Range Interpretation Code Description Data Adriana rce(s) Supporting Document(s) Progress Note [facility] IRGDAk4vRjIFLrBr30/LMArwJMGgw4IqCDcgUPq6PJfhBZOrL8BxOHF2zT5eSNX5QDsYMiWoYaFnZCHi lbm [file] AgICAgICAgICAgICAgICAgICAgICAgICAgICAgICAgICAgICAgICAgICAgICAgICAgICAgICAgICAgIC AgICAgICAgICAgICAgICAgICAgICAgICAgICANCiAg ICAgICAgICAgICAgICAgICAgICAgICAgICAgICAgICAgICAgICAgICAgICAgICAgICAgICAgICAgICAg ICAgICAgICAgICAgICAgICAgICAgICAgICAgICAgICAgICAgICANCiAgICAgICAgICAgICAgICAgICAg ICAgICAgICAgICAgICAgICAgICAgICAgICAgICAgIC AgICAgICAgICAgICAgICAgICAgICAgICAgICAgICAgICAgICAgICAgICAgICAgICANCiAgICAgICAgIC AgICAgICAgICAgICAgICAgICAgICAgICAgICAgICAgICAgICAgICAgICAgICAgICAgICAgICAgICAgIC AgICAgICAgICAgICAgICAgICAgICAgICAgICAgICAN CiAgICAgICAgICAgICAgICAgICAgICAgICAgICAgICAgICAgICAgICAgICAgICAgICAgICAgICAgICAg ICAgICAgICAgICAgICAgICAgICAgICAgICAgICAgICAgICAgICAgICANCiAgICAgICAgICAgICAgICAg ICAgICAgICAgICAgICAgICAgICAgICAgICAgICAgIC AgICAgICAgICAgICAgICAgICAgICAgICAgICAgICAgICAgICAgICAgICAgICAgICAgICANCiAgICAgIC AgICAgICAgICAgICAgICAgICAgICAgICAgICAgICAgICAgICAgICAgICAgICAgICAgICAgICAgICAgIC AgICAgICAgICAgICAgICAgICAgICAgICAgICAgICAg ICANCiAgICAgICAgICAgICAgICAgICAgICAgICAgICAgICAgICAgICAgICAgICAgICAgICAgICAgICAg ICAgICAgICAgICAgICAgICAgICAgICAgICAgICAgICAgICAgICAgICAgICANCiAgICAgICAgICAgICAg ICAgICAgICAgICAgICAgICAgICAgICAgICAgICAgIC AgICAgICAgICAgICAgICAgICAgICAgICAgICAgICAgICAgICAgICAgICAgICAgICAgICAgICANCiAgIC AgICAgICAgICAgICAgICAgICAgICAgICAgICAgICAgICAgICAgICAgICAgICAgICAgICAgICAgICAgIC AgICAgICAgICAgICAgICAgICAgICAgICAgICAgICAg ICAgICANCjw/sFXiM0efuDLmmzW1O6boEa1CNy7QBS3gh9UmCOGhFDtahtGvQrsGZdXlMCUuXorLHvd7 QWknJQ0LzQKbT1AlP1EoYUkmWY3IJKRjDPIspZFwXTQwNBBnSsG6MBVmNWluBZ8IlKKiKVusTUMaOMLc NyAwIFIgOSAwIFIgMTEgMCBSIDEzIDAgUiAxNSAwIF GaVI7OWCWdI822rsJyRe5NIf9GEsBdHF6sml0ALvQxUCOcNisVTlp4HAtiTV3IwHXzfHZdXvIlBAQUYn DcZ4pxl3VjXjYlZEIGMFzxOZ6Qg6LhqDGtRGq+Db5IUK8zk2BkDErcQvHhRP4hqj4LFDyAPlYnC4ZceD nfFHOeg8boZKFsSE8hcFViGCY3GBStPC2zRBzopKZu qTi9kSFPDT09j2ncYFRENBQdgYXkXG6wZD2iHFMcETI6VwFgGGQBTV6UPIFfXVUjeJWtQOOzAPSQFV5M VGbuNEL0CQCrspSmnLTpKDfkXS5TXBWulpJtPkWbMENESWt+Mz2YKI6bm1XeTRugZKLgIA2rxn5TRZvY ThLlS4Q4lYZrJ0X8KKxzHg0DTOBiDDWcFrTxVYAAAW taCE8YLF8wukP2XT7MfDRlWNJiMOBqcDQlHFf7S92ehFBxEVcvDR8YUAX+Manas+Ta3WMMMhCSRtUHUbVd EhKBNFWaGgN2GqS3PId3GfC9UbSX36fTqxnzUcNPinPK9NAI6gCSOmQTIJXZ4FgBQvnJ6gjeQvZyLlMO ZOVxWoT82stZPrDPWeOSXxLNDuHt4GZXPdL9GyzkNj zBmssgEiPVCeDJBKAY1KVCgqjbEdpDTtxYkgCI96tLxjBK1IPb2MCjSbBC1drd6GnNNbRe4DUZHzCP4T MBQdFKEcMGXyWZB0CHLbWiCrWEyiSNSiXVZlGTN3HBLlIKMeQG1SZyIvODDsZmbtBClaVNIbOWOtkx4S ARHrYKUvJWz4EoLwZYFpVQEdTXvvXIMnNTPvEJZ2DV VmPCUnLZ9TToGcWATjWEFpBZHwPSYxPKFgzu8VWRHvHRTsYUU9MAHsCWYfEEYrTCvrWPJiLSH4YOs9PP NoXXTlXR0HBtSgWSFrZSdzTYFaOJWnQOIzne7USLZzFHKmYIB1HOIjALRuFQEpXRmmCISmGGQrAPrhQM ErDQYcCF8IKeTkKSNrMRX8KxXxDKCkVPPigt5VABTy YYXnKYT4YEQeSPWuCQEsPTkmBWVeUOB8QeK0BDXgJLMiVD6NRmEuJYFvXRl4NsYgZEGwRJXzhq3ZIMVo EFTiINWkZULyUBEdGFDjPCtwJWUsSORzTrUsKEOmMZSxGB8BGaLkNIYpXbT5LBVwOUYhIMDeaq7MXSQa QYRoIhz9MzHoQGYeBEIrAUfhISWwUAWsNBkrLVVzBI FaIQ0EGtYeDIGyFgB0WjdqGAKhKBJqvo4YPONnPAKdXPX1ZBZcNSUwKJZkZXesWFUgDLC7BiE7PRAaYD OaUB8GBtBlSFFbBiB1WCfcCFMoYUXnsd3EHKVdMIXoHnH2LMHiJTGmJGYvSBxrIRWmOTJ6ElzhKMQmRC YzHQ1YRhFwVCXvQcY8YXFnRAShNPNids4VQRLyVMBt SfK2RKZjKOWdABDzUNsuZPRaGAT8IrVbAKIqBMYdZM2BQqFlALGtZdd9CNUrOEObXGOecj7OSSNbROHs Tsx0KEMpCJAfIIXzPEfpLXZmRYJ6WGMoUKRxNYIaRL1UAfZmYIKzKam4FrIsKUEyZANcnf6ADHPpJJAl TUr6CWNhOPAkIYQaLSonRZMeVMWaAHLhBCFyQUPdWX 9ZYdAfEIyeVCGQMcd9XVxhE8m7GGUbHP0NG2Gqf0UvDxJrVLLGAWmoZO5ynaGjCTLdTw7OQ7tOYwb3PV AbDNLnZepiUAJnKZkjGdIpTpLqGoEsMrC0ZQI6XY7cMZqjTiNlMsHwJeFnKyN1NwOmKEBgMyRqWoQhUH OsFUgnKqBqZW7JJl1OZoL5HHF3gUMdTb7CGVOnGZdLGxCrUA9UHGb= ID Date Data Source [id number] 05/05/2020 08:55:00 AM EDT [facility] ([facility]) Name Value Range Interpretation Code Description Data Adriana rce(s) Supporting Document(s) Ferritin [Mass/volume] in Serum or Plasma 42 ng/mL 30-400 [facility] ([facility]) Laboratory test finding (navigational concept) Laboratory test result [facility] ([facility]) ID Date Data Source [id number] 05/05/2020 08:55:00 AM EDT [facility] ([facility]) Name Value Range Interpretation Code Description Data Adriana rce(s) Supporting Document(s) Microalbumin [Mass/volume] in Urine Laboratory test result [facility] ([facility]) Creatinine [Mass/volume] in Urine 21.7 mg/dL [facility] ([facility]) Albumin/Creatinine [Mass Ratio] in Urine Laboratory test result 0-29 [facility] ([facility]) Normal: 0 - 29 Moderately increased: 30 - 300 Severely increased: >300 ID Date Data Source [id number] 05/05/2020 08:55:00 AM EDT [facility] ([facility]) Name Value Range Interpretation Code Description Data Adriana rce(s) Supporting Document(s) Iron binding capacity.unsaturated [Mass/volume] in Serum or Plasma 327 ug/dL 111-343 [facility] ([facility]) Iron Bind.Cap.(Tibc) 367 ug/dL 250-450 [facility] ([facility]) Iron saturation [Mass Fraction] in Serum or Plasma 11 % 15-55 [facility] ([facility]) Iron [Mass/volume] in Serum or Plasma 40 ug/dL 38-169 [facility] ([facility] ID Date Data Source [id number] 05/05/2020 08:55:00 AM EDT [facility] ([facility]) Name Value Range Interpretation Code Description Data Adriana rce(s) Supporting Document(s) Cholesterol [Mass/volume] in Serum or Plasma 175 mg/dL 100-199 [facility] ([facility]) Laboratory test finding (navigational concept) 48 mg/dL 5-40 [facility] ([facility]) Triglyceride [Mass/volume] in Serum or Plasma 290 mg/dL 0-149 [facility] ([facility]) Cholesterol in HDL [Mass/volume] in Serum or Plasma 40 mg/dL [facility] ([facility]) Laboratory test finding (navigational concept) 87 mg/dL 0-99 [facility] ([facility]) Comment: Laboratory test result [facility] ([facility]) ID Date Data Source [id number] 05/05/2020 08:55:00 AM EDT [facility] ([facility]) Name Value Range Interpretation Code Description Data Adriana rce(s) Supporting Document(s) Glucose [Mass/volume] in Serum or Plasma 117 mg/dL 65-99 [facility] ([facility]) Urea nitrogen [Mass/volume] in Serum or Plasma 8 mg/dL 6-24 [facility] ([facility] Creatinine [Mass/volume] in Serum or Plasma 0.67 mg/dL 0.76-1.27 [facility] ([facility]) eGFR If Africn Am 136 mL/min/1.73 [facility] ([facility]) eGFR If NonAfricn Am 118 mL/min/1.73 [facility] ([facility]) Urea nitrogen/Creatinine [Mass Ratio] in Serum or Plasma 12 9 -20 [facility] ([facility] Chloride [Moles/volume] in Serum or Plasma 104 mmol/L 96-106 [facility] ([facility]) Potassium [Moles/volume] in Serum or Plasma 4.1 mmol/L 3.5-5.2 [facility] ([facility]) Sodium [Moles/volume] in Serum or Plasma 140 mmol/L 134-144 [facility] ([facility] Carbon dioxide, total [Moles/volume] in Serum or Plasma 20 mmol/L 20 -29 [facility] ([facility]) Calcium [Mass/volume] in Serum or Plasma 9.6 mg/dL 8.7-10.2 [facility] ([facility]) Globulin [Mass/volume] in Serum by calculation 2.4 g/dL 1.5-4.5 [facility] ([facility]) Protein [Mass/volume] in Serum or Plasma 6.8 g/dL 6.0-8.5 [facility] ([facility]) Albumin [Mass/volume] in Serum or Plasma 4.4 g/dL 4.0-5.0 [facility] ([facility]) Albumin/Globulin [Mass Ratio] in Serum or Plasma 1.8 1.2-2.2 [facility] Bilirubin.total [Mass/volume] in Serum or Plasma Laboratory test result 0.0-1.2 [facility] Aspartate aminotransferase [Enzymatic activity/volume] in Serum or Plasma 28 IU/L 0-40 [facility] ([facility] ) Alkaline phosphatase [Enzymatic activity/volume] in Serum or Plasma 55 IU/L 39-117 [facility] ([facility] Alanine aminotransferase [Enzymatic activity/volume] in Seru m or Plasma 38 IU/L 0-44 [facility] ID Date Data Source [id number] 05/05/2020 08:55:00 AM EDT [facility] Name Value Range Interpretation Code Description Data Adriana rce(s) Supporting Document(s) Hemoglobin A1c/Hemoglobin.total in Blood 7.4 % 4.8-5.6 [facility]) <content>Prediabetes: 5.7 - 6.4</content >
<content>Diabetes: >6.4</content>
<content>Glycemic control for adults with diabetes: <7.0</content>
<content></content> ID Date Data Source [id number] 05/05/2020 08:55:00 AM EDT [facility] Name Value Range Interpretation Code Description Data Adriana rce(s) Supporting Document(s) Erythrocytes [#/volume] in Blood by Automated count 4.37 x10E6/uL 4.1 4-5.80 [facility] Leukocytes [#/volume] in Blood by Automated count 7.7 x10E3/uL 3.4-10 .8 [facility] ([facility]) Hemoglobin [Mass/volume] in Blood 11.6 g/dL 13.0-17.7 [facility] ([facility]) Erythrocyte mean corpuscular volume [Entitic volume] by Auto mated count 79 fL 79-97 [facility] ([facility]) Hematocrit [Volume Fraction] of Blood by Automated count 34.6 % 3 7.5-51.0 [facility] ([facility]) Erythrocyte mean corpuscular hemoglobin [Entitic mass] by Automated count 26.5 pg 26.6-33.0 [facility] ([facility] ) Erythrocyte distribution width [Ratio] by Automated count 14.2 % 11.6-15.4 [facility] ([facility]) Erythrocyte mean corpuscular hemoglobin concentration [Mass/volume] by Automated count 33.5 g/dL 31.5-35.7 [facility] ([facility]) Platelets [#/volume] in Blood by Automated count 389 x10E3/uL 150-450 [facility] ([facility]) Lymphocytes/100 leukocytes in Blood by Automated count 32 % [facility] ([facility]) Neutrophils/100 leukocytes in Blood by Automated count 55 % [facility] ([facility]) Basophils/100 leukocytes in Blood by Automated count 1 % [facility] ([facility]) Monocytes/100 leukocytes in Blood by Automated count 10 % [facility] ([facility]) Eosinophils/100 leukocytes in Blood by Automated count 2 % [facility] ([facility]) Immature cells [#/volume] in Blood Laboratory test result [facility] ([facility]) Lymphocytes [#/volume] in Blood 2.4 x10E3/uL 0.7-3.1 [facility] ([facility]) Neutrophils [#/volume] in Blood by Automated count 4.3 x10E3/uL 1.4-7 .0 [facility] ([facility]) Monocytes [#/volume] in Blood 0.8 x10E3/uL 0.1-0.9 [facility] ([facility]) Eosinophils [#/volume] in Blood by Automated count 0.1 x10E3/uL 0.0-0 .4 [facility] ([facility]) Basophils [#/volume] in Blood by Automated count 0.1 x10E3/uL 0.0-0.2 [facility] Immature granulocytes [#/volume] in Blood by Automated count 0.0 x10E3/uL 0.0-0.1 [facility] Nucleated erythrocytes/100 leukocytes [Ratio] in Blood by Automated count Laboratory test [facility]) Immature granulocytes/100 leukocytes in Blood by Automated count 0 % [facility] Morphology [Interpretation] in Blood Narrative Laboratory test result [facility] ([facility]) ID Date Data Source [id number] 03/05/2020 11:13:00 AM EDT [facility] Name Value Range Interpretation Code Description Data Adriana rce(s) Supporting Document(s) Nuclear Ab [Titer] in Serum by Immunofluorescence Laboratory jes t result Abnormal (applies to non-numeric results) [facility] ([facility]) <content>Negative <1:80</content>
<content>Borderline 1:80</content>
<content>Positive >1:80</content>
<content></content> Laboratory test finding (navigational concept) Laboratory [facility] Test Not Performed. The requested test w as omitted during the [place] customs and border officer process and the specimen is no longer available for testing. TEST: [id number] Creatinine ID Date Data Source [id number] 03/05/2020 11:13:00 AM EDT [facility] Name Value Range Interpretation Code Description Data Adriana rce(s) Supporting Document(s) Laboratory test finding (navigational concept) [facility] ID Date Data Source [id number] 03/05/2020 11:13:00 AM EDT [facility] Name Value Range Interpretation Code Description Data Adriana rce(s) Supporting Document(s) Homogeneous Pattern Laboratory test result [facility] ([facility]) Speckled Pattern Laboratory test result [facility] ([facility]) Dense Fine Speckled pattern is noted. Th is pattern suggests the presence of DFS70 antibody which has a low prevalence in systemic autoimmune rheumatic diseases. Nucleolar Pattern Laboratory test result [facility] ([facility], ) Nuclear Membrane Pattern Laboratory test result [facility] ([facility], ) Spindle Apparatus Pattern Laboratory test result [facility] ([facility], ) Centromere Pattern Laboratory test result [facility] ([facility], ) Midbody Pattern Laboratory test result [facility] ([facility], ) Pcna Pattern Laboratory test result [facility] ([facility], ) Nuclear Dot Pattern Laboratory test result [facility] ([facility], ) Centriole Pattern Laboratory test result [facility] ([facility]) Note: Laboratory test result [facility] ([facility], ) A positive DORSI result may occur in healt hy individuals (low titer) or be associated with a variety of diseases. See interpretation chart which is not all inclusive: Pattern Antigen Detected Suggested Disease Association --------- Homogeneous DNA(ds,ss), SLE - High titers Nucleosomes, Histones Drug-induced SLE --------- Speckled Sm, [employer], SCL-70, SLE,MCTD,PSS (diffuse form), SS-A/SS-B Sjogrens --------- Nucleolar SCL-70, PM-1/SCL High titers Scleroderma, PM/DM --------- Centromere Centromere PSS (limited form) w/Crest syndrome variable --------- Nuclear Dot [id number] Primary Biliary Cirrhosis --------- Nuclear GP210, Primary Biliary Cirrhosis Membrane zeeshan A,B,C --------- ID Date Data Source [id number] 03/05/2020 11:13:00 AM EDT [facility] ([facility], ) Name Value Range Interpretation Code Description Data Adriana rce(s) Supporting Document(s) Aquaporin 4 receptor IgG Ab [Units/volum e] in Serum or Plasma by Immunofluorescence Laboratory test result 0.0-3.0 [facility] ([facility], ) Negative: 0.0 - 3.0 Positive: >3.0 Pyridoxine [Mass/volume] in Serum or Plasma 17.6 ug/L 5.3-46.7 [facility] ([facility], ) Muscle specific receptor tyrosine kinase Ab [Moles/vol ume] in Serum Laboratory test result [facility] ([facility], ) <content>Reference Range:</content>
<content>Negative: <1.0</content>
<content>Positive: 1.0 or higher</content>
<content>A positive result, in the context of congruent clinical</content>
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
<content>myasthenia gravis.</content>
<content>COMMENTS:</content>
<content>- Myasthenia gravis (MG) is caused by auto-antibodies</content>
<content>against proteins of the neuromuscular junction. Most</content>
<content>cases (about 90%) of generalized MG are anti-</content>
<content>acetylcholine receptor (AChR) antibody-positive.(1)</content>
<content>- Of generalized MG patients who lack anti-AChR antibodies</content>
<content>(AChR-seronegative), about 40% are positive for Muscle-</content>
<content>Specific Kinase (MuSK) antibody.(1,2)</content>
<content>- Though a positive MuSK result is specific for the</content>
<content>diagnosis of MuSK MG, a negative MuSK result does not</content>
<content>rule out a MG diagnosis.</content>
<content>- MuSK antibody levels have been shown to correlate with</content>
<content>disease severity.(3) Serial measurements may be useful</content>
<content>to follow treatment.</content>
<content>References:</content>
<content>1. Hiram- Belle S et al. J Autoimmunity 2014;52:90-100.</content>
<content>2. Alondra MG et al. PNAS 2013;110(18);12327-72210.</content>
<content>3. Judith E et al. Neurology 2006;67:505-507.</content>
<content>This test was developed and its performance characteristics</content>
<content>determined by [employer]. It has not been cleared or approved</content>
<content>by the Food and Drug Administration.</content>
<content></content> Rheumatoid factor [Units/volume] in Serum or Plasma Laborato ry test result 0.0-13.9 [facility] ([facility]) Calcidiol [Mass/volume] in Serum or Plasma 32.4 ng/mL 30.0-100.0 [facility] ([facility]) Vitamin D deficiency has been defined by the [place] of [employer] and an Endocrine Society practice guideline as a level of serum 25-OH vitamin D less than 20 ng/mL (1,2). The Endocrine Society went on to further define vitamin D insufficiency as a level between 21 and 29 ng/mL (2). 1. IOM ([place] of Medicine). 2010. Di etary reference intakes for calcium and D. [place]: The National Academies Press. 2. Lyn CASTILLO, Graham NDIAYE, Alfredo FELIZ, et al. Evaluation, treatment, and prevention of vitamin D deficiency: an Endocrine Society clinical practice guideline. JCEM. 2010; 96(3):1911-30. Striated muscle Ab [Presence] in Serum Laboratory test result [facility] ([facility]) Thiamine [Mass/volume] in Blood 274.2 nmol/L 66.5-200.0 [facility] ([facility]) Urea nitrogen [Mass/volume] in Serum or Plasma 9 mg/dL 6-24 [facility] ([facility]) Ceruloplasmin [Mass/volume] in Serum or Plasma 22.6 mg/dL 16.0-31.0 [facility] ([facility]) Copper [Mass/volume] in Serum or Plasma 115 ug/dL 72-166 [facility] ([facility]) Detection Limit = 5 Erythrocyte sedimentation rate by 2H Westergren method 34 mm/hr 0-1 5 [facility] ([facility]) ID Date Data Source [id number] 03/05/2020 11:13:00 AM EDT [facility] ([facility]) Name Value Range Interpretation Code Description Data Adriana rce(s) Supporting Document(s) Alpha tocopherol [Mass/volume] in Serum or Plasma 14.5 mg/L 7.0-25.1 [facility] ([facility]) Vitamin E(Gamma Tocopherol) 1.3 mg/L 0.5-5.5 [facility] ([facility]) Reference intervals for alpha and gamma- tocopherol determined from National Health and Nutrition Examination Survey, 7166-7303. Individuals with alpha-tocopherol levels less than 5.0 mg/L are considered vitamin E deficient. ID Date Data Source [id number] 03/05/2020 11:13:00 AM EDT [facility] ([facility]) Name Value Range Interpretation Code Description Data Adriana rce(s) Supporting Document(s) Cobalamin (Vitamin B12) [Mass/volume] in Serum or Plasma 1019 pg/mL 232-1245 [facility] ([facility], ) Folate (Folic Acid), Serum 19.3 ng/mL [facility] ([facility]) A serum folate concentration of less joan n 3.1 ng/mL is considered to represent clinical deficiency. ID Date Data Source [id number] 03/05/2020 11:13:00 AM EDT [facility] ([facility], ) Name Value Range Interpretation Code Description Data Adriana rce(s) Supporting Document(s) Acetylcholine receptor Ab [Moles/volume] in Serum Laboratory test result 0.00-0.24 [facility] ([facility], ) Negative: 0.00 - 0.24 Borderline: 0.25 - 0.40 Positive: >0.40 Acetylcholine receptor blocking Ab [Units/volume] in Serum 10 % 0-25 [facility] ([facility], ) Negative: 0 - 25 Borderline: 26 - 30 Positive: >30 Acetylcholine receptor modulation Ab/Acetylcholine Ab. total in Serum Laboratory test result 0-20 [facility] ([facility], ) <content>Negative: <21</content>
<content>Equivocal: 21 - 25</content>
<content>Positive: >25</content>
<content>The assay is linear between values of 12 and 64.</content>
<content>Those <12 and >64 are reported as such. No single</content>
<content>value for ACR- modulating antibody should be used as</content>
<content>a sole basis for diagnosis or response to therapy.</content>
<content></content> ID Date Data Source [id number] 12/06/2019 08:41:00 AM EDT [facility] ([facility]) Name Value Range Interpretation Code Description Data Adriana rce(s) Supporting Document(s) Prostate specific Ag [Mass/volume] in Serum or Plasma 0.4 ng/mL 0.0- 4.0 [facility] ([facility]) Nba ECLIA methodology. According to the [place] [employer], Serum PSA should decrease and [...] the presence or absence of malignant disease. Laboratory test finding (navigational concept) Laboratory test result [facility]) ID Date Data Source [id number] 12/06/2019 08:41:00 AM EDT [facility]) Name Value Range Interpretation Code Description Data Adriana rce(s) Supporting Document(s) Hemoglobin A1c/Hemoglobin.total in Blood 7.8 % 4.8-5.6 [facility] ([facility]) <content>Prediabetes: 5.7 - 6.4</content >
<content>Diabetes: >6.4</content>
<content>Glycemic control for adults with diabetes: <7.0</content>
<content></content> ID Date Data Source [id number] 12/06/2019 08:41:00 AM EDT [facility] ([facility]) Name Value Range Interpretation Code Description Data Adriana rce(s) Supporting Document(s) Leukocytes [#/volume] in Blood by Automated count 8.6 x10E3/uL 3.4-10 .8 [facility] ([facility]) Erythrocytes [#/volume] in Blood by Automated count 4.66 x10E6/uL 4.1 4-5.80 [facility] ([facility]) Hemoglobin [Mass/volume] in Blood 12.3 g/dL 13.0-17.7 [facility] ([facility]) Hematocrit [Volume Fraction] of Blood by Automated count 37.5 % 3 7.5-51.0 [facility] ([facility]) Erythrocyte mean corpuscular volume [Entitic volume] by Auto mated count 81 fL 79-97 [facility] ([place] [facility]) Erythrocyte mean corpuscular hemoglobin [Entitic mass] by Automated count 26.4 pg 26.6-33.0 [facility] ([facility] ) Erythrocyte distribution width [Ratio] by Automated count 14.4 % 11.6-15.4 [facility] ([facility]) Erythrocyte mean corpuscular hemoglobin concentration [Mass/volume] by Automated count 32.8 g/dL 31.5-35.7 [facility] ([facility]) Platelets [#/volume] in Blood by Automated count 471 x10E3/uL 150-450 [facility] ([facility]) Neutrophils/100 leukocytes in Blood by Automated count 63 % [facility] ([facility]) Monocytes/100 leukocytes in Blood by Automated count 7 % [facility] ([facility]) Lymphocytes/100 leukocytes in Blood by Automated count 28 % [facility] ([facility]) Basophils/100 leukocytes in Blood by Automated count 1 % [facility] ([facility]) Eosinophils/100 leukocytes in Blood by Automated count 1 % [facility] ([facility]) Immature cells [#/volume] in Blood Laboratory test result [facility] ([facility]) Neutrophils [#/volume] in Blood by Automated count 5.4 x10E3/uL 1.4-7 .0 [facility] ([facility]) Lymphocytes [#/volume] in Blood 2.4 x10E3/uL 0.7-3.1 [facility] ([facility]) Monocytes [#/volume] in Blood 0.6 x10E3/uL 0.1-0.9 [facility] ([facility]) Eosinophils [#/volume] in Blood by Automated count 0.1 x10E3/uL 0.0-0 .4 [facility] ([facility]) Basophils [#/volume] in Blood by Automated count 0.1 x10E3/uL 0.0-0.2 [facility] ([facility]) Immature granulocytes [#/volume] in Blood by Automated count 0.0 x10E3/uL 0.0-0.1 [facility] ([facility]) Immature granulocytes/100 leukocytes in Blood by Automated count 0 % [facility] ([facility]) Morphology [Interpretation] in Blood Narrative Laboratory test result [facility] ([facility]) Nucleated erythrocytes/100 leukocytes [Ratio] in Blood by Automated count Laboratory test result [facility] ([facility]) ID Date Data Source [id number] 12/06/2019 08:41:00 AM EDT [facility] ([facility]) Name Value Range Interpretation Code Description Data Adriana rce(s) Supporting Document(s) Thyrotropin [Units/volume] in Serum or Plasma by Detec tion limit <= 0.05 mIU/L 3.010 uIU/mL 0.450-4.500 [facility] ([facility] ) ID Date Data Source [id number] 12/06/2019 08:41:00 AM EDT [facility] ([facility]) Name Value Range Interpretation Code Description Data Adriana rce(s) Supporting Document(s) Cholesterol [Mass/volume] in Serum or Plasma 170 mg/dL 100-199 [facility] ([facility]) Triglyceride [Mass/volume] in Serum or Plasma 266 mg/dL 0-149 [facility] ([facility]) Cholesterol in VLDL [Mass/volume] in Serum or Plasma by calc ulation 53 mg/dL 5-40 [facility] ([facility]) Cholesterol in HDL [Mass/volume] in Serum or Plasma 45 mg/dL [facility] ([facility]) Comment: Laboratory test result [facility] ([place] [facility]) Cholesterol in LDL [Mass/volume] in Serum or Plasma by calcu lation 72 mg/dL 0-99 [facility] ([facility]) ID Date Data Source [id number] 12/06/2019 08:41:00 AM EDT [facility] ([facility]) Name Value Range Interpretation Code Description Data Adriana rce(s) Supporting Document(s) Glucose [Mass/volume] in Serum or Plasma 131 mg/dL 65-99 [facility] ([facility]) eGFR If NonAfricn Am 116 mL/min/1.73 [facility] ([facility]) Urea nitrogen [Mass/volume] in Serum or Plasma 8 mg/dL 6-24 [facility] ([facility]) Creatinine [Mass/volume] in Serum or Plasma 0.69 mg/dL 0.76-1.27 [facility] ([facility]) eGFR If Africn Am 134 mL/min/1.73 [facility] ([facility]) Urea nitrogen/Creatinine [Mass Ratio] in Serum or Plasma 12 9 -20 [facility] ([facility]) Sodium [Moles/volume] in Serum or Plasma 139 mmol/L 134-144 [facility] ([facility]) Potassium [Moles/volume] in Serum or Plasma 4.2 mmol/L 3.5-5.2 [facility] ([facility]) Chloride [Moles/volume] in Serum or Plasma 102 mmol/L 96-106 [facility] ([facility]) Carbon dioxide, total [Moles/volume] in Serum or Plasma 21 mmol/L 20 -29 [facility] ([facility]) Calcium [Mass/volume] in Serum or Plasma 9.7 mg/dL 8.7-10.2 [facility] ([facility]) Globulin [Mass/volume] in Serum by calculation 2.4 g/dL 1.5-4.5 [facility] ([facility]) Protein [Mass/volume] in Serum or Plasma 7.0 g/dL 6.0-8.5 [facility] ([facility]) Albumin [Mass/volume] in Serum or Plasma 4.6 g/dL 4.0-5.0 [facility] ([facility]) Albumin/Globulin [Mass Ratio] in Serum or Plasma 1.9 1.2-2.2 [facility] ([facility]) Bilirubin.total [Mass/volume] in Serum or Plasma Laboratory test result 0.0-1.2 [facility] ([facility]) Aspartate aminotransferase [Enzymatic activity/volume] in Serum or Plasma 26 IU/L 0-40 [facility] ([facility] ) Alkaline phosphatase [Enzymatic activity/volume] in Serum or Plasma 49 IU/L 39-117 [facility] ([facility]) Alanine aminotransferase [Enzymatic activity/volume] in Seru m or Plasma 37 IU/L 0-44 [facility] ([facility]) ID Date Data Source [id number] 08/06/2019 07:23:00 AM EST [facility] ([facility]) Name Value Range Interpretation Code Description Data Adriana rce(s) Supporting Document(s) Total Iron Binding Capacity 382 ug/dL 250-450 [facility] ([facility]) Iron (Fe) 51 ug/dL 65-175 [facility]) Percent Saturation 13.4 % 19.7-50.0 [facility] ([facility]) ID Date Data Source [id number] 08/06/2019 07:23:00 AM EST [facility] ([facility]) Name Value Range Interpretation Code Description Data Adriana rce(s) Supporting Document(s) Ferritin [Mass/volume] in Serum or Plasma 20 ng/mL 26-388 [facility] ([facility]) ID Date Data Source [id number] 08/06/2019 07:23:00 AM EST [facility] ([facility]) Name Value Range Interpretation Code Description Data Adriana rce(s) Supporting Document(s) Vitamin [facility]1 pg[facility] VITAMIN B12 NORMAL RANGE NORMAL 247 - 911 PG/ML INDETERMINATE 211 - 246 PG/ML DEFICIENT LESS THAN 211 PG/ML Folate 22.7 ng/mL [facility] FOLATE NORMAL RANGE NORMAL GREATER THAN 5.4 NG/ML INDETERMINATE 3.4-5.4 NG/ML DEFICIENT LESS THAN 3.4 NG/ML ID Date Data Source [id number] 08/06/2019 07:23:00 AM EST [facility] ([facility]) Name Value Range Interpretation Code Description Data Adriana rce(s) Supporting Document(s) Thyrotropin [Units/volume] in Serum or Plasma by Detec tion limit <= 0.05 mIU/L 3.210 uIU/ML 0.358-3.740 [facility] ([facility] ) ID Date Data Source [id number] 08/06/2019 07:23:00 AM EST [facility] ([facility]) Name Value Range Interpretation Code Description Data Adriana rce(s) Supporting Document(s) Red Blood Count 4.49 10 4.30-6.10 [facility] ([facility]) White Blood Count 10.4 10 4.0-10.0 [facility] ([facility]) Mean Corpuscular Volume 82.4 fl 80.0-96.0 [facility] ([facility]) Hemoglobin 11.9 g/dL 13.5-17.5 [facility] Hematocrit 37.0 % 42.0-52.0 [facility] ([facility]) Mean Corpuscular Hemoglobin 26.5 pg 27.0-33.0 [facility] ([facility]) Mean Corpuscular HGB Conc 32.2 g/dL 32.0-36.5 [facility] ([facility]) Red Cell Distribution Width 14.0 % 11.5-14.5 [facility] ([facility]) Platelet Count, Automated 410 10 150-450 [facility] ([facility]) Neutrophils % 53.6 % 36.0-66.0 [facility] ([facility]) Eos % 1.8 % 0.0-3.0 [facility] [facility] [place] % 7.4 % 0.0-5.0 [facility] [facility] Lymph % 36.1 % 24.0-44.0 [facility] [facility] Baso % 0.9 % 0.0-1.0 [facility] [facility] Nucleated Red Blood Cell % 0.0 % 0-0 [facility] ([facility]) Immature Granulocyte % 0.2 % 0-3.0 [facility] ([facility]) Neutrophils # 5.6 10 1.5-8.5 [facility] ([facility]) Lymph # 3.7 10 1.5-5.0 [facility] [facility] Eos # 0.2 10 0.0-0.5 [facility] ([place] [facility] [place] # 0.8 10 0.0-0.8 [facility] ([place] [facility] Baso # 0.1 10 0.0-0.2 [facility] ([place] [facility] ID Date Data Source [id number] 08/06/2019 07:23:00 AM EST [facility] ([facility]) Name Value Range Interpretation Code Description Data Adriana rce(s) Supporting Document(s) Glucose, Fasting 124 mg/dL 70-100 [facility] ([facility]) Blood Urea Nitrogen 8 mg/dL 7-18 [facility] ([facility]) Sodium Level 140 meq/L 136-145 [facility] ([facility]) Creatinine For GFR 0.83 mg/dL 0.70-1.30 [facility] ([facility]) Glomerular Filtration Rate Laboratory test result [facility] ([facility]) <content>Units are mL/min/1.73 m2</content>
<content></content>
<content>Chronic Kidney Disease Staging per NKF:</content>
<content></content>
<content>Stage I & II GFR >=60 Normal to Mildly Decreased</content>
<content>Stage III GFR 30- 59 Moderately Decreased</content>
<content>Stage IV GFR 15-29 Severely Decreased</content>
<content>Stage V GFR <15 Very Little GFR Left</content>
<content>ESRD GFR <15 on LENS INSPECTOR</content>
<content></content> Potassium Serum 4.1 meq/L 3.5-5.1 [facility] ([facility]) Chloride Level 107 meq/L 98-107 [facility] ([facility]) Carbon Dioxide Level 27 meq/L 21-32 [facility] ([facility]) Calcium Level 9.1 mg/dL 8.5-10.1 [facility] ([facility]) Anion Gap 6 meq/L 8-16 [facility] [facility] Ast/Sgot 24 U/L 7-37 [facility] ([facility]) Alt/SGPT 52 U/L 12-78 [facility] ([facility]) Total Protein 7.3 GM/DL 6.4-8.2 [facility] ([facility]) Bilirubin,Total 0.3 mg/dL 0.2-1.0 [facility] ([facility]) Alkaline Phosphatase 46 U/L 45-117 [facility] ([facility]) Albumin/Globulin Ratio 1.21 1.00-1.93 [facility] ([facility]) Albumin 4.0 GM/DL 3.2-5.2 [facility] ([place] [facility]) ID Date Data Source [id number] 08/06/2019 07:23:00 AM EST [facility] ([facility]) Name Value Range Interpretation Code Description Data Adriana rce(s) Supporting Document(s) Estimated Average Glucose 174 mg/dL 60-110 [facility] ([facility]) Hemoglobin A1c 7.7 % [facility] ([facility]) REFERENCE RANGES: 4.5-5.6% NORMAL 5.7-6.4% SUGGESTS IMPAIRED GLUCOSE META BOLISM >= 6.5% ABNORMAL ID Date Data Source [id number] 08/06/2019 07:23:00 AM EST [facility] ([facility]) Name Value Range Interpretation Code Description Data Adirana rce(s) Supporting Document(s) Triglycerides Level 267 mg/dL [facility] ([facility]) Cholesterol Level 176 mg/dL [facility] ([facility]) HDL Cholesterol 43 mg/dL [facility] ([facility]) Non-HDL-C 133 mg/dL [facility] [facility]) LDL Cholesterol 80 mg/dL [facility] ([facility]) Cholesterol Risk Ratio 4.093 [facility] ([facility]) Procedure Social History Code Duration Value Status Description Data Source(s ) Alcohol intake 06/05/2020 12:00:00 AM EST Lifetime non-drinker (finding) completed Lifetime non-drinker (finding) [facility] Tobacco use and exposure 06/05/2020 12:00:00 AM EST Never used co mpleted Never used [facility] Smoking 06/05/2020 12:00:00 AM EST Never smoker completed Never s [facility] Smoking 03/12/2020 12:00:00 AM EDT Non Smoker completed Non Smoke r [facility] ([facility], ) Smoking 09/25/2019 08:14:19 AM EDT Never smoked tobacco (findi ng) completed Never smoked tobacco (finding) [place] (Jeremy Helms MD [facility]) Vital Signs ID Date Data Source UNK Name Value Range Interpretation Code Description Data Source(s) Body mass index (BMI) [Ratio] 34.1 kg/m2 34.1 k g/m2 [facility] ([facility]) Body weight 238.00 [lb_av] 238.00 [lb_av] [facility] ([facility]) Body height 70 [in_i] 70 [in_i] [facility] ([facility]) 5'10" Heart rate 78 /min 78 /min [facility] ([facility]) Diastolic blood pressure 72 mm[Hg] 72 mm[Hg] [facility] ([facility]) Systolic blood pressure 130 mm[Hg] 130 mm[Hg] [facility] ([facility]) Body weight 106.142 kg 106.142 kg [facility] ([facility]) Body mass index (BMI) [Ratio] 32.6 kg/m2 32.6 k g/m2 [facility] ([facility]) Body weight 234.00 [lb_av] 234.00 [lb_av] [facility] ([facility]) Body height 71 [in_i] 71 [in_i] [facility] ([facility]) 5'11" Oxygen saturation in Arterial blood by Pulse oximetry 98 % 98 % [facility] ([facility]) Heart rate 90 /min 90 /min [facility] ([facility]) Diastolic blood pressure 90 mm[Hg] 90 mm[Hg] [facility] ([facility]) Systolic blood pressure 130 mm[Hg] 130 mm[Hg] [facility] ([facility]) Body mass index (BMI) [Ratio] 33.6 kg/m2 33.6 k g/m2 [facility] ([facility]) Body weight 234.00 [lb_av] 234.00 [lb_av] [facility] ([facility]) Body height 70 [in_i] 70 [in_i] [facility] ([facility]) 5'10" Heart rate 78 /min 78 /min [facility] ([facility]) Diastolic blood pressure 80 mm[Hg] 80 mm[Hg] [facility] ([facility]) Systolic blood pressure 138 mm[Hg] 138 mm[Hg] [facility] ([facility]) ID Date Data Source [id number] 07/13/2020 09:53:27 AM [facility] Name Value Range Interpretation Code Description Data Source(s) WEIGHT RECORDED 241 lb 241 lb [facility] Patient Treatment Plan of Care Planned Activity Planned Date Details Description Data Source (s) Cyclosporine 0.5 MG/ML Ophthalmic Suspension [Restasis ] 09/25/2019 12:00:00 AM EDT [place] (Jeremy CLARK) Cyclosporine 0.5 MG/ML Ophthalmic Suspension [Restasis ] 12/19/2018 12:00:00 AM EDT [place] (Jeremy CLARK) Cyclosporine 0.5 MG/ML Ophthalmic Suspension [Restasis ] 07/02/2015 12:00:00 AM EST FLORIAN (Jeremy CLARK)
[2020-08-15] MEDS ORDERED: GLIM1TAB4 (02:53)
[2020-08-15] MEDS ORDERED: ATOR1TAB19 (02:53)
[2020-08-15] MEDS ORDERED: B-1100TA2 PO (02:53)
[2020-08-15] MEDS ORDERED: VITMTA PO (02:53)
--- NOTE | 2020-08-15 04:14 | REPVR ---
PROCEDURE INFORMATION: Exam: CT Head Without Contrast Exam date and time: 08/15/2020 3:02 AM Age: 44 years old Clinical indication: Injury or trauma; Fall; Concussion/head injury TECHNIQUE: Imaging protocol: Computed tomography of the head without contrast. Radiation optimization: All CT scans at this facility use at least one of these dose optimization techniques: automated exposure control; mA and/or kV adjustment per patient size (includes targeted exams where dose is matched to clinical indication); or iterative reconstruction. COMPARISON: CT Head without contrast 05/20/2019 3:32 PM FINDINGS: Brain: The cortical/white matter interfaces are preserved throughout the brain. There is no evidence of intracranial hemorrhage. Cerebral ventricles: The ventricular system is normal in size and configuration. Bones/joints: No acute fractures of the skull are identified. Paranasal sinuses: There is minimal mucoperiosteal thickening in the visualized paranasal sinuses. No fluid levels. Mastoid air cells: The visualized mastoid air cells are clear. Soft tissues: There is hyperdense superficial soft tissue swelling in the posterior right parietal region, consistent with a superficial hematoma. There was a similar appearance on the prior exam, but this is presumably a new hematoma. IMPRESSION: 1. Right parietal superficial hematoma. 2. Normal appearance of the brain. No evidence of acute intracranial injury. Electronically signed by: Mariza Jane On 08/15/2020 04:13:36 AM
[2020-08-15] MEDS ORDERED: ACETAMINOPHEN TAB 650MG DOSE (2X325MG) PO ONE (04:15)
--- NOTE | 2020-08-15 04:18 | REPVR ---
PROCEDURE INFORMATION: Exam: CT Cervical Spine Without Contrast Exam date and time: 08/15/2020 3:02 AM Age: 44 years old Clinical indication: Neck pain; Additional info: Trauma TECHNIQUE: Imaging protocol: Computed tomography images of the cervical spine without contrast. Radiation optimization: All CT scans at this facility use at least one of these dose optimization techniques: automated exposure control; mA and/or kV adjustment per patient size (includes targeted exams where dose is matched to clinical indication); or iterative reconstruction. COMPARISON: No relevant prior studies available. FINDINGS: Bones/joints: There is loss of the cervical lordosis with a slight kyphosis through the mid cervical spine but without subluxations. There is no evidence of acute fracture. Mild degenerative endplate changes are seen in the mid and lower cervical spine and in the visualized upper thoracic spine. Discs/Spinal canal/Neural foramina: There is mild disc space narrowing at C4-C5, C5-C6, C7-T1, and T1-T2. No significant spinal canal stenosis is seen. Prevertebral Space: The prevertebral soft tissues appear normal. Lungs: The visualized lungs are grossly clear. Soft tissues: The paraspinous soft tissues appear unremarkable. IMPRESSION: 1. Loss of the cervical lordosis with a slight kyphosis in the mid cervical spine but no subluxations or fractures identified. 2. Mild degenerative changes. No disc protrusions or significant central canal stenosis identified. Electronically signed by: Mariza Jane On 08/15/2020 04:18:40 AM
--- OUTSIDE RECORDS SUMMARY | 2020-08-15 04:50 | CCD ---
Author Author [facility] Organization [facility] Address Unknown Phone Unavailable Care Team Providers Care Email Engineer Name Role Phone Gee Helms, Martinez Luna [...] Luna MD, FACS Unavailable Unavailable Flynn Scooter, Maritnez Luna MD, FACS Unavailable Unavailable Gee Helms, Martinez Luna MD, FACS Unavailable Unavailable Gee [...] Arashjudi MEADE Unavailable Unavailable White F Arashjudi MEAED Unavailable Unavailable White, F Arash Unavailable Unavailable [...] Arashjudi MEADE Unavailable Unavailable White, F Arashjudi MEADE Unavailable Unavailable White F [...] Arash MEADE Unavailable Unavailable White F Arash MAEDE Unavailable Unavailable White F Arash MEADE [...] Suzanna MEADE Unavailable Unavailable Marina, L Isabella DIRECT CHILL CASTING OPERATOR Unavailable Unavailable Marina, L Isabella DIRECT CHILL CASTING OPERATOR Unavailable Unavailable Marina, L Isabella DIRECT CHILL CASTING OPERATOR Unavailable Unavailable Marina, L Isabella DIRECT CHILL CASTING OPERATOR Unavailable Unavailable Marina, L Isabella DIRECT CHILL CASTING OPERATOR Unavailable Unavailable Marina, L Isabella DIRECT CHILL CASTING OPERATOR Unavailable Unavailable Marina, L Isabella DIRECT CHILL CASTING OPERATOR Unavailable Unavailable Marina, L Isabella DIRECT CHILL CASTING OPERATOR Unavailable Unavailable Marina, L Isabella DIRECT CHILL CASTING OPERATOR Unavailable Unavailable Marina, L Isabella DIRECT CHILL CASTING OPERATOR Unavailable Unavailable Marina, L Isabella DIRECT CHILL CASTING OPERATOR Unavailable Unavailable Marina, L Isabella DIRECT CHILL CASTING OPERATOR Unavailable Unavailable Marina, L Isabella DIRECT CHILL CASTING OPERATOR Unavailable Unavailable Marina, L Isabella DIRECT CHILL CASTING OPERATOR Unavailable Unavailable Marina, L Isabella DIRECT CHILL CASTING OPERATOR Unavailable Unavailable Marina, L Isabella DIRECT CHILL CASTING OPERATOR Unavailable Unavailable Mairna, L Isabella DIRECT CHILL CASTING OPERATOR Unavailable Unavailable Marina, L Isabella DIRECT CHILL CASTING OPERATOR Unavailable Unavailable Marina, L Isabella DIRECT CHILL CASTING OPERATOR Unavailable Unavailable Marina, L Isabella DIRECT CHILL CASTING OPERATOR Unavailable Unavailable Marina, L Isabella DIRECT CHILL CASTING OPERATOR Unavailable Unavailable Marina, L Isabella DIRECT CHILL CASTING OPERATOR Unavailable Unavailable Re-disclosure Warning The records that [...] is protected by Article 27-F of the [facility] Public Health law. If you continue you may have access to information: Regarding HIV / AIDS; Provided by facilities licensed or operated by the [facility] Office of Mental Health; or Provided by the [facility] Office for People With Developmental Disabilities. If such information is present, then the following [facility] mandated warning applies: This information has been [...] law may result in a fine or custodial sentence or both. A general authorization for the release of medical or other information is NOT sufficient authorization for further disc losure. Allergies and Adverse Reactions Type Description Substance Reaction Status Data Source(s ) Drug Class NO KNOWN ALLERGIES NO KNOWN ALLERGIES [facility] Allergy to substance No Known Allergies No known allergies (situation ) [facility] (Jeremy Helms MD [facility]) Family History Family Member Name Family Member Gender Family Member Status Date o f Status Description Data Source(s) Unknown Male Problem [facility] ([facility] Unknown Female Problem [facility] ([facility]) both sides, father, mat grandmother most severe. Mother does not have DM 2. Unknown Female Problem MEDENT (Darrel Fry MD, ) Encounters Encounter Providers Location Date Indications Data Source(s ) Outpatient Attender: Ben Iqbal MD 09/09/2020 12:00:00 A [facility] Outpatient Attender: Ben Iqbal MD [id number] 2019 12:00:00 AM EST - 06/05/2020 11:57:21 AM EST Demyelinating disease of central nervous system, unspecified [facility] Demyelinating disease of central nervous system, unspecified Outpatient Attender: Ben Iqbal MD 05/18/2020 12:00:00 A [facility] Outpatient Attender: Arash Sanders 05/13 11:00:00 AM EDT MEDENT ([facility] ) Outpatient Attender: Isabella Luna/Mio/Aren/Jennifer 03/12/2020 11:30:00 AM EDT MED[facility] ([facility], ) Outpatient Attender: Suzanna Valle MD Main office - [place] 02/18/2020 11:45:00 AM EDT MED[facility] ([facility]) Outpatient<td ID="encounterTypeDescripti onID0">9 Month Follow-Up</td><td>Jeremy Mejia MD, FACS</td><td>Jeremy Mejia MD [facility]</td><td>09/25/2019</td><td><content ID="encounterDiagnosisID0-0">Assessment of Taking Medication For Diabetes Long-term Use of Oral Hypoglycemics</content>, <content ID="encounterDiagnosisID0-1">Diabetes Mellitus Type 2 Without Complication</content>, <content ID="encounterDiagnosisID0-2">Dry Eye Syndrome Both Eyes</content>, <content ID="encounterDiagnosisID0-3">Vitreous Disorders Degeneration</content></td> Attender: Jeremy Helms MD, FACS Jeremy Mejia MD [facility] 09/25/2019 07:31:00 AM EDT - 09/25/2019 08:03:00 AM ED T Assessment of Taking Medication For Diabetes Long-term Use of Oral HypoglycemicsVitreous Disorders DegenerationDiabetes Mellitus Type 2 Without ComplicationDry Eye Syndrome Both Eyes FLORIAN (Jeremy Helms MD [facility]) Assessment of Taking Medication For Diab etes [...] 03/10/2020 04:06:00 PM EDT completed MEDEN T ([facility]) INFLUENZA VIRUS VACCINE QUADRIVALENT (6 MOS [...] 2:00:00 AM EDT ORAL active MEDENT ( [facility]) atorvastatin 10 MG Oral Tablet ATORVASTATIN [...] CPAP 03/03/2020 12:00:00 AM EDT active MEDENT ([facility], ) . UNIT 01/22/2020 12:00:00 AM [...] Cyclospo rine 0.5 MG/ML Ophthalmic Suspension [Restasis] [place] (Jeremy Helms MD [facility]) 160 mg 08/14/2019 12:00:00 AM EST tablet [...] Ophthalmic Suspension [Restasis] FLORIAN (Jeremy Helms MD [facility]) 25 mg 11/30/2018 12:00:00 AM EDT tablet [...] Ophthalmic Suspension [Restasis] FLORIAN (Jeremy Helms MD [facility]) Insurance Providers Payer name Policy type / Coverage type Policy ID Covered republican ID Covered republican's relationship to [place] Policy [place] Plan Information SHAWNA [id number] SP [id number] MEDICARE [id number] SP [id number] MEDICAID M [id number] Self [id number] MEDICARE A [id number] Self [id number] Medicare Part B [facility] Other 0 Se lf 0 MEDICAID [id number] SP [id number] Medicaid Medigap Part B [id number] Self [id number] Medicare [place] Primary [id number] Self [id number] MEDICARE [id number] SP [id number] Medicaid Medigap Part B [id number] Self [id number] Medicare [place] Primary [id number] Self [id number] [place] [id number] Self [id number] Medicare - [place] Medicare Primary [id number] Self [id number] [place] [id number] Self [id number] Medicare - [place] Medicare Primary [id number] Self [id number] [place] [id number] Self [id number] Medicare - [place] Medicare Primary [id number] Self [id number] Medicaid Medigap Part B [id number] Self [id number] 10M [place] Primary [id number] Self [id number] Medicaid Medigap Part B [id number] Self [id number] [place] Primary [id number] Self [id number] Medicaid Medigap Part B 1 1 Self 1 1 Medicare [place] Primary Self MEDICAID [id number] SP [id number] SELF PAY UNAVAILABLE SP UNAVAILA BLE [place] Part B Self [place] Self MEDICARE - [place] MCR [id number] S [id number] [place] Med[place] Part B Self Medicare [facility] Medicare Primary Self MEDICAID S [id number] S [id number] MEDICARE P [id number] S [id number] A [id number] A Problems, Conditions, and Diagnoses Code Display Name Description Problem Type Effective Dates Data Source(s) 62578429 Obstructive sleep apnea syndrome Obstructive sle ep apnea syndrome Problem 03/12/2020 12:00:00 AM EDT [facility] [id number] Neuromyelitis optica Neuromyelitis optica Problem 02/18/2020 12:00:00 AM EDT MEDENT ([facility], ) 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, unspecified Congenital malformation of spinal cord, unspecified Diagnosis 06/05/2020 07:20:57 AM [facility] R33.9 Retention of urine, unspecified Retention of urine, un specified Diagnosis 06/05/2020 07:20:57 AM [facility] R27.8 Other lack of coordination Other lack of coordination Diagnosis 06/05/2020 07:20:57 AM [facility] H57.9 Unspecified disorder of eye and adnexa U nspecified disorder of eye and adnexa Diagnosis 06/05/2020 07:20:57 AM [facility] R26.9 Unspecified abnormalities of gait and mo bility Unspecified abnormalities of gait and mobility Diagnosis 06/05/2020 07:20:57 AM [facility] R27.0 Ataxia, unspecified Ataxia, unspecified Diagnosis 1 08/05/2019 07:20:57 AM [facility] G37.9 Demyelinating disease of central nervous system, unspecified Demyelinating disease of central nervous system, unspecified Diagnosis 2019 07:20:57 AM [facility] Surgeries/Procedures Procedure Description Date Indications Data Source(s) MRI Brain W/O Contrast, Followed By Contrast 0 12:00:00 AM EDT MEDENT ([facility]) MRI Brain W/O Contrast, Followed By Contrast 0 12:00:00 AM EDT MEDENT ([facility], ) MRI Spine Cervical W/O Contrast, Followed By Contrast 04/14/2020 12:00:00 AM EDT MEDENT ([facility], ) MRI Spine Cervical W/O Contrast, Followed By Contrast 04/14/2020 12:00:00 AM EDT MEDENT ([facility], ) MRI Spine Thoracic W/O Contrast, Followed By Contrast 04/14/2020 12:00:00 AM EDT MED[facility] ([facility]) MRI Spine Thoracic W/O Contrast, Followed By Contrast 04/14/2020 12:00:00 AM EDT MEDENT ([facility] [place]) Diabetic Retinal Eye Exam 09/25/2019 12:00:00 AM EDT MEDENT ([facility]) History of the retina was abnormal 12/19/2018 History o f the retina was abnormal 12/19/2018 09/25/2019 12:00:00 AM EDT FLORIAN (Lei id Martinez Helms MD [facility]) Comprehensive eye exam established patient Comprehensi ve eye exam established patient 09/25/2019 12:00:00 AM EDT FLORIAN (Lei Helms MD [facility]) Results ID Date Data Source [id number] 06/07/2020 03:55:26 PM [facility] Name Value Range Interpretation Code Description Data Adriana rce(s) Supporting Document(s) Progress Note [facility] YTFOVs3dWnDTTsSw61/HEQweWGEfv7RhZPncXPj6IDzrMJXrP4UnNKH7sT6cMMQ4CNvFMsSuVgPyXYGc lbm [file] AgICAgICAgICAgICAgICAgICAgICAgICAgICAgICAgICAgICAgICAgICAgICAgICAgICAgICAgICAgIC AgICAgICAgICAgICAgICAgICAgICAgICAgICANCiAg ICAgICAgICAgICAgICAgICAgICAgICAgICAgICAgICAgICAgICAgICAgICAgICAgICAgICAgICAgICAg ICAgICAgICAgICAgICAgICAgICAgICAgICAgICAgICAgICAgICANCiAgICAgICAgICAgICAgICAgICAg ICAgICAgICAgICAgICAgICAgICAgICAgICAgICAgIC AgICAgICAgICAgICAgICAgICAgICAgICAgICAgICAgICAgICAgICAgICAgICAgICANCiAgICAgICAgIC AgICAgICAgICAgICAgICAgICAgICAgICAgICAgICAgICAgICAgICAgICAgICAgICAgICAgICAgICAgIC AgICAgICAgICAgICAgICAgICAgICAgICAgICAgICAN CiAgICAgICAgICAgICAgICAgICAgICAgICAgICAgICAgICAgICAgICAgICAgICAgICAgICAgICAgICAg ICAgICAgICAgICAgICAgICAgICAgICAgICAgICAgICAgICAgICAgICANCiAgICAgICAgICAgICAgICAg ICAgICAgICAgICAgICAgICAgICAgICAgICAgICAgIC AgICAgICAgICAgICAgICAgICAgICAgICAgICAgICAgICAgICAgICAgICAgICAgICAgICANCiAgICAgIC AgICAgICAgICAgICAgICAgICAgICAgICAgICAgICAgICAgICAgICAgICAgICAgICAgICAgICAgICAgIC AgICAgICAgICAgICAgICAgICAgICAgICAgICAgICAg ICANCiAgICAgICAgICAgICAgICAgICAgICAgICAgICAgICAgICAgICAgICAgICAgICAgICAgICAgICAg ICAgICAgICAgICAgICAgICAgICAgICAgICAgICAgICAgICAgICAgICAgICANCiAgICAgICAgICAgICAg ICAgICAgICAgICAgICAgICAgICAgICAgICAgICAgIC AgICAgICAgICAgICAgICAgICAgICAgICAgICAgICAgICAgICAgICAgICAgICAgICAgICAgICANCiAgIC AgICAgICAgICAgICAgICAgICAgICAgICAgICAgICAgICAgICAgICAgICAgICAgICAgICAgICAgICAgIC AgICAgICAgICAgICAgICAgICAgICAgICAgICAgICAg ICAgICANCjw/wSHmS6vetNKyipU0A8wgJf2DHe1ZOC9gj3UoAXFrHJilbgVdEubBGcVaYXRxAgbDDpc5 LNfhIQ2VuQCjY8EkC1QeHBdwEE4HQNRqFXSsyCUrNIQqBIZvTpP9JYRfPBakPM0QmPUmPLbmKIOkDECk NyAwIFIgOSAwIFIgMTEgMCBSIDEzIDAgUiAxNSAwIF WjMT4RUGArG160dyLlOa7TKy2VEbMuKF7zan6FQuFhGGTbDqkBKdi5OGecXG1DoQBkzPZeJyDsTMRXTv QwI5ara7ZwPiKaFPPUNDbzYV7Xa5UnyHMsAYv+Dr7KIX2vw0LsYMgjCyGzDV9qkt6NAJiLLcUzF4NnpC nlIUVtn5fkUDQiLI2sgHIkTGA8OCSaUC0jBFakoHTw xBr4mVOLFJ38s6evPOHZWPKurGUyZP0dED4hVVIrIGB6GkBwPYOIFI8KPTLjJBIlpDEdZNNhLQYOWS5G LJwlEEO8EKZaafIycVDkPKlaIK2JJRLlzuDdPwXaJSHIXHc+Uo8KEO5xp7LgYHcmJYMmDY8bvo2KLClI MoNhA6L8pCPcH1E3ZAwhLd9YNCNvKTYiNdDfFZCZAQ dxGF2XOS2mgoJ3TM2KoUTcAYMlTYGuqZDsONx8Z98riRCaJSadZF5SBYK+Manas+Uv8QXKKaDAZtSDMrUs EzSCBMNqCpT6DcB7GPi6DqS4DaTG47gDsdqlLiDDdvYK8LCF3bAYPwPHQFGT7YvEHhaE3jycYfXvDuXT OXNwUjQ47deIIfTXWpYHMvFDIvMs4YWLIkE0HtbvCv dQawhuYwCCAkUFYVQY9BGNtbnyDatSKviOiaAB07oOgjIP5YLq0OPfHgZP1wue4JkGHsGr0WOUJlDU4E KLNvDMGsOYMgKLF6ZGBnCiDjVYhnQRFiVDIcDHZ9TBBbIZPuKM3HJiIpTFSlExapIAmfFAOyGUNhdl3F IWYyHDWpWNx3GvUlIMCoSGSuNQcqPSDuSIZhSHJ0MZ TqAFYzCS5AOkSxHWLuAANyHKFgGFVnNFQfdj1UHVXnPCRzZZU3AXRxNJUzXZGuPXqvOSZoPGW5OXe1BL BxGUNiZO8MSgKdEHMcSAhxFYExPDVlVUPlkw1NIGAvAPImUYT9DBAmGPNxBWTfFQleZXMkYNCjAVinFM RsPZBzLI4SHjXxMUTtCIZ0LmQoCFExZBXjor5ERHIu QEHrQAT5FBDtVNVrKMMqAYzfYJZpOGC9YuF1VPItWLEjWD6VPbReRLCePNl0EaCyDBXlMRVgbe6LELPl NXIqIJKeQVCjBFGwTVKwFFfiZOHmLWOgSgJjEEFoHADrVF6CIaZxTSVgDaM2GVBjRDQqUALsxw5VQGNz LBVrZuh8EiBkKCVjPDNkOGglVRLkNEUoHYzdOFEuVH SeHR1PHrAwUTPtGnL0BurcJOJzZYXeum4SWSCxRYQsMYB0YQVsYMRkSVRuRDuhUWOiBOT5EpA2IFBxIZ WhOS8GCuLlPADeJpN9EDcfELPkDRFzeh3SQPBvBHXgEuU7HRYwQNSxSFDtALowKRNxWRS5VagwWGEkST TeUV7EEsJxBHOzBqI3BDCqGLBaYTHsrj8ZUGSnCDTk VkX2ZZWbRDQnEAFhFZcrXVKoUII0XkZrMBRsISAxQT9JAuCaFRRdYxa1CZBuYBRpNZJbaq2HTNKkXIAl Uxi0BDPjYEVaOLQjKHwrSPOsYLR4HGUzKZUgPKNsBG2YKkCkCFBnFok9FhBwYXNbZLAnmg3ACVAuOYOm VKl6GYDnFSWkJVMpKCkrKLMuZWZgHGLjSRJzZAJlHU 4RErVxCYfbNBWFXuc6WBbkR1d6IUBnLU8UT1Rqo8YeSfFaLYCREWwhOP1axtQoHDReWm4OM4uVPqm9QG CqXTZnYcluRMLuQCvcMsDrAnSlUbTtKtD5VSG2JK4aMTpnKhRvQnLpWgZhHdK3AzJmVNUkWwGxLxVkXN HiGFagBuFaMY9VDy8JUtX4ILG9eXHvWr1VYCBlGFiVDkCrSH9NOOv= ID Date Data Source [id number] 05/05/2020 08:55:00 AM EDT [facility] Name Value Range Interpretation Code Description Data Adriana rce(s) Supporting Document(s) Ferritin [Mass/volume] in Serum or Plasma 42 ng/mL 30-400 [facility] ([place] [facility] Laboratory test finding (navigational concept) Laboratory test result [facility] [facility] ID Date Data Source [id number] 05/05/2020 08:55:00 AM EDT MED[facility] Name Value Range Interpretation Code Description Data Adriana rce(s) Supporting Document(s) Microalbumin [Mass/volume] in Urine Laboratory test result [facility] [facility] Creatinine [Mass/volume] in Urine 21.7 mg/dL [facility] [facility] Albumin/Creatinine [Mass Ratio] in Urine Laboratory test result 0-29 MED[facility] ([facility]) Normal: 0 - 29 Moderately increased: 30 - 300 Severely increased: >300 ID Date Data Source [id number] 05/05/2020 08:55:00 AM EDT MED[facility] Name Value Range Interpretation Code Description Data Adriana rce(s) Supporting Document(s) Iron binding capacity.unsaturated [Mass/volume] in Serum or Plasma 327 ug/dL 111-343 [facility] [facility] Iron Bind.Cap.(Tibc) 367 ug/dL 250-450 MED[facility] ([facility]) Iron saturation [Mass Fraction] in Serum or Plasma 11 % 15-55 [facility] ([facility]) Iron [Mass/volume] in Serum or Plasma 40 ug/dL 38-169 [facility] [facility] ID Date Data Source [id number] 05/05/2020 08:55:00 AM EDT [facility] ([facility] Name Value Range Interpretation Code Description Data Adriana rce(s) Supporting Document(s) Cholesterol [Mass/volume] in Serum or Plasma 175 mg/dL 100-199 [facility] ([place] [facility] Laboratory test finding (navigational concept) 48 mg/dL 5-40 [facility] ([facility]) Triglyceride [Mass/volume] in Serum or Plasma 290 mg/dL 0-149 [facility] ([facility]) Cholesterol in HDL [Mass/volume] in Serum or Plasma 40 mg/dL [facility] [facility] Laboratory test finding (navigational concept) 87 mg/dL 0-99 [facility] [facility] Comment: Laboratory test result [facility] ([facility]) ID Date Data Source [id number] 05/05/2020 08:55:00 AM EDT [facility] ([facility] Name Value Range Interpretation Code Description Data Adriana rce(s) Supporting Document(s) Glucose [Mass/volume] in Serum or Plasma 117 mg/dL 65-99 [facility] ([facility]) Urea nitrogen [Mass/volume] in Serum or Plasma 8 mg/dL 6-24 [facility] ([place] [facility] Creatinine [Mass/volume] in Serum or Plasma 0.67 mg/dL 0.76-1.27 [facility] ([facility]) eGFR If Africn Am 136 mL/min/1.73 MED[facility] ([facility]) eGFR If NonAfricn Am 118 mL/min/1.73 MED E[facility] ([facility]) Urea nitrogen/Creatinine [Mass Ratio] in Serum or Plasma 12 9 -20 [facility] ([facility] [facility] Chloride [Moles/volume] in Serum or Plasma 104 mmol/L 96-106 [facility] ([facility]) Potassium [Moles/volume] in Serum or Plasma 4.1 mmol/L 3.5-5.2 [facility] ([facility]) Sodium [Moles/volume] in Serum or Plasma 140 mmol/L 134-144 [facility] Carbon dioxide, total [Moles/volume] in Serum or Plasma 20 mmol/L 20 -29 [facility] Calcium [Mass/volume] in Serum or Plasma 9.6 mg/dL 8.7-10.2 [facility] ([facility] Globulin [Mass/volume] in Serum by calculation 2.4 g/dL 1.5-4.5 [facility] ([facility]) Protein [Mass/volume] in Serum or Plasma 6.8 g/dL 6.0-8.5 [facility] ([facility]) Albumin [Mass/volume] in Serum or Plasma 4.4 g/dL 4.0-5.0 [facility] ([facility] Albumin/Globulin [Mass Ratio] in Serum or Plasma 1.8 1.2-2.2 [facility] [facility] Bilirubin.total [Mass/volume] in Serum or Plasma Laboratory test result 0.0-1.2 [facility] Aspartate aminotransferase [Enzymatic activity/volume] in Serum or Plasma 28 IU/L 0-40 [facility] ([facility] ) Alkaline phosphatase [Enzymatic activity/volume] in Serum or Plasma 55 IU/L 39-117 [facility] Alanine aminotransferase [Enzymatic activity/volume] in Seru m or Plasma 38 IU/L 0-44 [facility] [facility] ID Date Data Source [id number] 05/05/2020 08:55:00 AM EDT [facility] ([facility]) Name Value Range Interpretation Code Description Data Adriana rce(s) Supporting Document(s) Hemoglobin A1c/Hemoglobin.total in Blood 7.4 % 4.8-5.6 [facility] ([facility]) <content>Prediabetes: 5.7 - 6.4</content >
<content>Diabetes: >6.4</content>
<content>Glycemic control for adults with diabetes: <7.0</content>
<content></content> ID Date Data Source [id number] 05/05/2020 08:55:00 AM EDT [facility] ([facility]) Name Value Range Interpretation Code Description Data Adriana rce(s) Supporting Document(s) Erythrocytes [#/volume] in Blood by Automated count 4.37 x10E6/uL 4.1 4-5.80 [facility] Leukocytes [#/volume] in Blood by Automated count 7.7 x10E3/uL 3.4-10 .8 [facility] [facility] Hemoglobin [Mass/volume] in Blood 11.6 g/dL 13.0-17.7 [facility] ([facility]) Erythrocyte mean corpuscular volume [Entitic volume] by Auto mated count 79 fL 79-97 [facility] ([facility]) Hematocrit [Volume Fraction] of Blood by Automated count 34.6 % 3 7.5-51.0 [facility] ([facility]) Erythrocyte mean corpuscular hemoglobin [Entitic mass] by Automated count 26.5 pg 26.6-33.0 [facility] ([facility] ) Erythrocyte distribution width [Ratio] by Automated count 14.2 % 11.6-15.4 [facility] ([facility]) Erythrocyte mean corpuscular hemoglobin concentration [Mass/volume] by Automated count 33.5 g/dL 31.5-35.7 [facility] Platelets [#/volume] in Blood by Automated count 389 x10E3/uL 150-450 [facility] ([facility]) Lymphocytes/100 leukocytes in Blood by Automated count 32 % [facility] ([facility]) Neutrophils/100 leukocytes in Blood by Automated count 55 % [facility] ([facility]) Basophils/100 leukocytes in Blood by Automated count 1 % [facility] ([facility]) Monocytes/100 leukocytes in Blood by Automated count 10 % [facility] ([facility]) Eosinophils/100 leukocytes in Blood by Automated count 2 % [facility] ([facility]) Immature cells [#/volume] in Blood Laboratory test result [facility] ([facility]) Lymphocytes [#/volume] in Blood 2.4 x10E3/uL 0.7-3.1 [facility] ([facility]) Neutrophils [#/volume] in Blood by Automated count 4.3 x10E3/uL 1.4-7 .0 [facility] ([facility]) Monocytes [#/volume] in Blood 0.8 x10E3/uL 0.1-0.9 [facility] ([facility]) Eosinophils [#/volume] in Blood by Automated count 0.1 x10E3/uL 0.0-0 .4 [facility] ([facility]) Basophils [#/volume] in Blood by Automated count 0.1 x10E3/uL 0.0-0.2 [facility] Immature granulocytes [#/volume] in Blood by Automated count 0.0 x10E3/uL 0.0-0.1 [facility] Nucleated erythrocytes/100 leukocytes [Ratio] in Blood by Automated count Laboratory test result [facility] ([facility]) Immature granulocytes/100 leukocytes in Blood by Automated count 0 % [facility] Morphology [Interpretation] in Blood Narrative Laboratory test result [facility] ([facility]) ID Date Data Source [id number] 03/05/2020 11:13:00 AM [facility] Name Value Range Interpretation Code Description Data Adriana rce(s) Supporting Document(s) Nuclear Ab [Titer] in Serum by Immunofluorescence Laboratory jes t result Abnormal (applies to non-numeric results) [facility] ([facility]) <content>Negative <1:80</content>
<content>Borderline 1:80</content>
<content>Positive >1:80</content>
<content></content> Laboratory test finding (navigational concept) Laboratory test result [facility] ([facility]) Test Not Performed. The requested test w as omitted during the money order clerk process and the specimen is no longer available for testing. TEST: [id number] Creatinine ID Date Data Source [id number] 03/05/2020 11:13:00 AM EDT [facility] Name Value Range Interpretation Code Description Data Adriana rce(s) Supporting Document(s) Laboratory test finding (navigational concept) Laboratory test result [facility] ([facility]) ID Date Data Source [id number] 03/05/2020 11:13:00 AM EDT [facility] Name Value Range Interpretation Code Description Data Adriana rce(s) Supporting Document(s) Homogeneous Pattern Laboratory test result [facility] ([facility]) Speckled Pattern Laboratory test result [facility] ([facility]) Dense Fine Speckled pattern is noted. Th is pattern suggests the presence of DFS70 antibody which has a low prevalence in systemic autoimmune rheumatic diseases. Nucleolar Pattern Laboratory test result [facility] ([facility], ) Nuclear Membrane Pattern Laboratory test result [facility] ([facility], ) Spindle Apparatus Pattern Laboratory test result [facility] ([facility], ) Centromere Pattern Laboratory test result [facility] ([facility], ) Midbody Pattern Laboratory test result [facility] ([facility], ) Pcna Pattern Laboratory test result [facility] ([facility], ) Nuclear Dot Pattern Laboratory test result [facility] ([facility], ) Centriole Pattern Laboratory test result [facility] ([facility]) Note: Laboratory test result [facility] ([facility], ) A positive DORIS result may occur in healt hy individuals (low titer) or be associated with a variety of diseases. See interpretation chart which is not all inclusive: Pattern Antigen Detected Suggested Disease Association --------- Homogeneous DNA(ds,ss), SLE - High titers Nucleosomes, Histones Drug-induced SLE --------- Speckled Sm, UNDERBASTER, SCL-70, SLE,MCTD,PSS (diffuse form), SS-A/SS-B Sjogrens --------- Nucleolar SCL-70, PM-1/SCL High titers Scleroderma, PM/DM --------- Centromere Centromere PSS (limited form) w/Crest syndrome variable --------- Nuclear Dot [id number] Primary Biliary Cirrhosis --------- Nuclear GP210, Primary Biliary Cirrhosis Membrane zeeshan A,B,C --------- ID Date Data Source [id number] 03/05/2020 11:13:00 AM EDT [facility] ([facility], ) Name Value Range Interpretation Code Description Data Adriana rce(s) Supporting Document(s) Aquaporin 4 receptor IgG Ab [Units/volum e] in Serum or Plasma by Immunofluorescence Laboratory test result 0.0-3.0 [facility] ([facility], ) Negative: 0.0 - 3.0 Positive: >3.0 Pyridoxine [Mass/volume] in Serum or Plasma 17.6 ug/L 5.3-46.7 [facility] ([facility], ) Muscle specific receptor tyrosine kinase Ab [Moles/vol ume] in Serum Laboratory test result [facility] ([facility], ) <content>Reference Range:</content>
<content>Negative: [...] 2014;52:90-100.</content>
<content>2. Alondra MG et al. PNAS 2013;110(75);63998-53432.</content>
<content>3. Judith E et al. Neurology 2006;67:505-507.</content>
<content>This test was developed and its performance characteristics</content>
<content>determined by [employer]. It has not been cleared or approved</content>
<content>by the Food and Drug Administration.</content>
<content></content> Rheumatoid factor [Units/volume] in Serum or Plasma Laborato ry test result 0.0-13.9 [facility] ([facility]) Calcidiol [Mass/volume] in Serum or Plasma 32.4 ng/mL 30.0-100.0 [facility] ([facility]) Vitamin D deficiency has been defined by the [place] of [employer] and an Endocrine Society practice guideline as a level of serum 25-OH vitamin D less than 20 ng/mL (1,2). The Endocrine Society went on to further define vitamin D insufficiency as a level between 21 and 29 ng/mL (2). 1. IOM ([place] of Medicine). 2010. Di etary reference intakes for calcium and D. [place]: The National Academies Press. 2. Lyn CASTILLO, Graham NDIAYE, Alfredo FELIZ, et al. Evaluation, treatment, and prevention of vitamin D deficiency: an Endocrine Society clinical practice guideline. JCEM. 2010; 96(5):1911-30. Striated muscle Ab [Presence] in Serum Laboratory test result [facility] ([facility]) Thiamine [Mass/volume] in Blood 274.2 nmol/L 66.5-200.0 [facility] ([facility]) Urea nitrogen [Mass/volume] in Serum or Plasma 9 mg/dL 6-24 [facility] ([facility]) Ceruloplasmin [Mass/volume] in Serum or Plasma 22.6 mg/dL 16.0-31.0 [facility] ([facility]) Copper [Mass/volume] in Serum or Plasma 115 ug/dL 72-166 [facility] ([facility]) Detection Limit = 5 Erythrocyte sedimentation rate by 2H Westergren method 34 mm/hr 0-1 5 [facility] ([facility]) ID Date Data Source [id number] 03/05/2020 11:13:00 AM EDT [facility] ([facility]) Name Value Range Interpretation Code Description Data Adriana rce(s) Supporting Document(s) Alpha tocopherol [Mass/volume] in Serum or Plasma 14.5 mg/L 7.0-25.1 [facility] ([facility]) Vitamin E(Gamma Tocopherol) 1.3 mg/L 0.5-5.5 [facility] ([facility]) Reference intervals for alpha and gamma- tocopherol determined from National Health and Nutrition Examination Survey, 1334-7919. Individuals with alpha-tocopherol levels less than 5.0 mg/L are considered vitamin E deficient. ID Date Data Source [id number] 03/05/2020 11:13:00 AM EDT [facility] ([facility]) Name Value Range Interpretation Code Description Data Adriana rce(s) Supporting Document(s) Cobalamin (Vitamin B12) [Mass/volume] in Serum or Plasma 1019 pg/mL 232-1245 [facility] ([facility], ) Folate (Folic Acid), Serum 19.3 ng/mL [facility] ([facility]) A serum folate concentration of less joan n 3.1 ng/mL is considered to represent clinical deficiency. ID Date Data Source [id number] 03/05/2020 11:13:00 AM EDT [facility] ([facility], ) Name Value Range Interpretation Code Description Data Adriana rce(s) Supporting Document(s) Acetylcholine receptor Ab [Moles/volume] in Serum Laboratory test result 0.00-0.24 [facility] ([facility], ) Negative: 0.00 - 0.24 Borderline: 0.25 - 0.40 Positive: >0.40 Acetylcholine receptor blocking Ab [Units/volume] in Serum 10 % 0-25 [facility] ([facility], ) Negative: 0 - 25 Borderline: 26 - 30 Positive: >30 Acetylcholine receptor modulation Ab/Acetylcholine Ab. total in Serum Laboratory test result 0-20 [facility] ([facility], ) <content>Negative: <21</content>
<content>Equivocal: 21 - 25</content>
<content>Positive: >25</content>
<content>The assay is linear between values of 12 and 64.</content>
<content>Those <12 and >64 are reported as such. No single</content>
<content>value for ACR- modulating antibody should be used as</content>
<content>a sole basis for diagnosis or response to therapy.</content>
<content></content> ID Date Data Source [id number] 12/06/2019 08:41:00 AM EDT [facility] Name Value Range Interpretation Code Description Data Adriana rce(s) Supporting Document(s) Prostate specific Ag [Mass/volume] in Serum or Plasma 0.4 ng/mL 0.0- 4.0 [facility] ([facility]) Nba ECLIA methodology. According to the [place] [employer], Serum PSA should decrease and [...] test finding (navigational concept) Laboratory test result [facility]) ID Date Data Source [id number] 12/06/2019 08:41:00 AM EDT [facility]) Name Value Range Interpretation Code Description Data Adriana rce(s) Supporting Document(s) Hemoglobin A1c/Hemoglobin.total in Blood 7.8 % 4.8-5.6 [facility] ([facility]) <content>Prediabetes: 5.7 - 6.4</content >
<content>Diabetes: >6.4</content>
<content>Glycemic control for adults with diabetes: <7.0</content>
<content></content> ID Date Data Source [id number] 12/06/2019 08:41:00 AM EDT [facility] ([facility]) Name Value Range Interpretation Code Description Data Adriana rce(s) Supporting Document(s) Leukocytes [#/volume] in Blood by Automated count 8.6 x10E3/uL 3.4-10 .8 [facility] ([facility]) Erythrocytes [#/volume] in Blood by Automated count 4.66 x10E6/uL 4.1 4-5.80 [facility] ([facility]) Hemoglobin [Mass/volume] in Blood 12.3 g/dL 13.0-17.7 [facility] ([facility]) Hematocrit [Volume Fraction] of Blood by Automated count 37.5 % 3 7.5-51.0 [facility] ([facility]) Erythrocyte mean corpuscular volume [Entitic volume] by Auto mated count 81 fL 79-97 [facility] Erythrocyte mean corpuscular hemoglobin [Entitic mass] by Automated count 26.4 pg 26.6-33.0 [facility] ([facility] ) Erythrocyte distribution width [Ratio] by Automated count 14.4 % 11.6-15.4 [facility] ([facility]) Erythrocyte mean corpuscular hemoglobin concentration [Mass/volume] by Automated count 32.8 g/dL 31.5-35.7 [facility] Platelets [#/volume] in Blood by Automated count 471 x10E3/uL 150-450 [facility] ([facility]) Neutrophils/100 leukocytes in Blood by Automated count 63 % [facility] ([facility]) Monocytes/100 leukocytes in Blood by Automated count 7 % [facility] ([facility]) Lymphocytes/100 leukocytes in Blood by Automated count 28 % [facility] ([facility]) Basophils/100 leukocytes in Blood by Automated count 1 % [facility] ([facility]) Eosinophils/100 leukocytes in Blood by Automated count 1 % [facility] ([facility]) Immature cells [#/volume] in Blood Laboratory test result [facility] ([facility]) Neutrophils [#/volume] in Blood by Automated count 5.4 x10E3/uL 1.4-7 .0 [facility] ([facility]) Lymphocytes [#/volume] in Blood 2.4 x10E3/uL 0.7-3.1 [facility] ([facility]) Monocytes [#/volume] in Blood 0.6 x10E3/uL 0.1-0.9 [facility] ([facility]) Eosinophils [#/volume] in Blood by Automated count 0.1 x10E3/uL 0.0-0 .4 [facility] ([facility]) Basophils [#/volume] in Blood by Automated count 0.1 x10E3/uL 0.0-0.2 [facility] ([facility]) Immature granulocytes [#/volume] in Blood by Automated count 0.0 x10E3/uL 0.0-0.1 [facility] ([facility]) Immature granulocytes/100 leukocytes in Blood by Automated count 0 % [facility] ([facility]) Morphology [Interpretation] in Blood Narrative Laboratory test result [facility] ([facility]) Nucleated erythrocytes/100 leukocytes [Ratio] in Blood by Automated count Laboratory test result [facility] ([facility]) ID Date Data Source [id number] 12/06/2019 08:41:00 AM EDT [facility] ([facility]) Name Value Range Interpretation Code Description Data Adriana rce(s) Supporting Document(s) Thyrotropin [Units/volume] in Serum or Plasma by Detec tion limit <= 0.05 mIU/L 3.010 uIU/mL 0.450-4.500 [facility] ([facility] ) ID Date Data Source [id number] 12/06/2019 08:41:00 AM EDT [facility] Name Value Range Interpretation Code Description Data Adriana rce(s) Supporting Document(s) Cholesterol [Mass/volume] in Serum or Plasma 170 mg/dL 100-199 [facility] ([facility]) Triglyceride [Mass/volume] in Serum or Plasma 266 mg/dL 0-149 [facility] ([facility]) Cholesterol in VLDL [Mass/volume] in Serum or Plasma by calc ulation 53 mg/dL 5-40 [facility] ([facility]) Cholesterol in HDL [Mass/volume] in Serum or Plasma 45 mg/dL [facility] ([facility]) Comment: Laboratory test result [facility] Cholesterol in LDL [Mass/volume] in Serum or Plasma by calcu lation 72 mg/dL 0-99 [facility] ([facility]) ID Date Data Source [id number] 12/06/2019 08:41:00 AM EDT [facility] Name Value Range Interpretation Code Description Data Adriana rce(s) Supporting Document(s) Glucose [Mass/volume] in Serum or Plasma 131 mg/dL 65-99 [facility] ([facility]) eGFR If NonAfricn Am 116 mL/min/1.73 [facility] ([facility]) Urea nitrogen [Mass/volume] in Serum or Plasma 8 mg/dL 6-24 [facility] ([facility]) Creatinine [Mass/volume] in Serum or Plasma 0.69 mg/dL 0.76-1.27 [facility] ([facility]) eGFR If Africn Am 134 mL/min/1.73 [facility] ([facility]) Urea nitrogen/Creatinine [Mass Ratio] in Serum or Plasma 12 9 -20 [facility] ([facility]) Sodium [Moles/volume] in Serum or Plasma 139 mmol/L 134-144 [facility] ([facility]) Potassium [Moles/volume] in Serum or Plasma 4.2 mmol/L 3.5-5.2 [facility] ([facility]) Chloride [Moles/volume] in Serum or Plasma 102 mmol/L 96-106 [facility] ([facility]) Carbon dioxide, total [Moles/volume] in Serum or Plasma 21 mmol/L 20 -29 [facility] ([facility]) Calcium [Mass/volume] in Serum or Plasma 9.7 mg/dL 8.7-10.2 [facility] ([facility]) Globulin [Mass/volume] in Serum by calculation 2.4 g/dL 1.5-4.5 [facility] ([facility]) Protein [Mass/volume] in Serum or Plasma 7.0 g/dL 6.0-8.5 [facility] ([facility]) Albumin [Mass/volume] in Serum or Plasma 4.6 g/dL 4.0-5.0 [facility] ([facility]) Albumin/Globulin [Mass Ratio] in Serum or Plasma 1.9 1.2-2.2 [facility] ([facility]) Bilirubin.total [Mass/volume] in Serum or Plasma Laboratory test result 0.0-1.2 [facility] ([facility]) Aspartate aminotransferase [Enzymatic activity/volume] in Serum or Plasma 26 IU/L 0-40 [facility] ([facility] ) Alkaline phosphatase [Enzymatic activity/volume] in Serum or Plasma 49 IU/L 39-117 [facility] ([facility]) Alanine aminotransferase [Enzymatic activity/volume] in Seru m or Plasma 37 IU/L 0-44 [facility] ([facility]) ID Date Data Source [id number] 08/06/2019 07:23:00 AM EST [facility] ([facility]) Name Value Range Interpretation Code Description Data Adriana rce(s) Supporting Document(s) Total Iron Binding Capacity 382 ug/dL 250-450 [facility] ([facility]) Iron (Fe) 51 ug/dL 65-175 [facility]) Percent Saturation 13.4 % 19.7-50.0 [facility] ([facility]) ID Date Data Source [id number] 08/06/2019 07:23:00 AM EST [facility] ([facility]) Name Value Range Interpretation Code Description Data Adriana rce(s) Supporting Document(s) Ferritin [Mass/volume] in Serum or Plasma 20 ng/mL 26-388 [facility] ([facility]) ID Date Data Source [id number] 08/06/2019 07:23:00 AM EST [facility] ([facility]) Name Value Range Interpretation Code Description Data Adriana rce(s) Supporting Document(s) Vitamin [facility]12 [facility] 1331 pg[facility] VITAMIN B12 NORMAL RANGE NORMAL 247 - 911 PG/ML INDETERMINATE 211 - 246 PG/ML DEFICIENT LESS THAN 211 PG/ML Folate 22.7 ng/mL [facility] FOLATE NORMAL RANGE NORMAL GREATER THAN 5.4 NG/ML INDETERMINATE 3.4-5.4 NG/ML DEFICIENT LESS THAN 3.4 NG/ML ID Date Data Source [id number] 08/06/2019 07:23:00 AM EST [facility] ([facility]) Name Value Range Interpretation Code Description Data Adriana rce(s) Supporting Document(s) Thyrotropin [Units/volume] in Serum or Plasma by Detec tion limit <= 0.05 mIU/L 3.210 uIU/ML 0.358-3.740 [facility] ([facility] ) ID Date Data Source [id number] 08/06/2019 07:23:00 AM EST [facility] ([facility]) Name Value Range Interpretation Code Description Data Adriana rce(s) Supporting Document(s) Red Blood Count 4.49 10 4.30-6.10 [facility] ([facility]) White Blood Count 10.4 10 4.0-10.0 [facility] ([facility]) Mean Corpuscular Volume 82.4 fl 80.0-96.0 [facility] ([facility]) Hemoglobin 11.9 g/dL 13.5-17.5 [facility] Hematocrit 37.0 % 42.0-52.0 [facility] ([facility]) Mean Corpuscular Hemoglobin 26.5 pg 27.0-33.0 [facility] ([facility]) Mean Corpuscular HGB Conc 32.2 g/dL 32.0-36.5 [facility] ([facility]) Red Cell Distribution Width 14.0 % 11.5-14.5 [facility] ([facility]) Platelet Count, Automated 410 10 150-450 [facility] ([facility]) Neutrophils % 53.6 % 36.0-66.0 [facility] ([facility]) Eos % 1.8 % 0.0-3.0 [facility] [place] % 7.4 % 0.0-5.0 [facility] Lymph % 36.1 % 24.0-44.0 [facility] Baso % 0.9 % 0.0-1.0 [facility] Nucleated Red Blood Cell % 0.0 % 0-0 [facility] ([facility]) Immature Granulocyte % 0.2 % 0-3.0 [facility] ([facility]) Neutrophils # 5.6 10 1.5-8.5 [facility] ([facility]) Lymph # 3.7 10 1.5-5.0 [facility] Eos # 0.2 10 0.0-0.5 [facility] [place] # 0.8 10 0.0-0.8 [facility] Baso # 0.1 10 0.0-0.2 [facility] ID Date Data Source [id number] 08/06/2019 07:23:00 AM EST [facility] ([facility]) Name Value Range Interpretation Code Description Data Adriana rce(s) Supporting Document(s) Glucose, Fasting 124 mg/dL 70-100 [facility] ([facility]) Blood Urea Nitrogen 8 mg/dL 7-18 [facility] ([facility]) Sodium Level 140 meq/L 136-145 [facility] ([facility]) Creatinine For GFR 0.83 mg/dL 0.70-1.30 [facility] ([facility]) Glomerular Filtration Rate Laboratory test result [facility] ([facility]) <content>Units are mL/min/1.73 m2</content>
<content></content>
<content>Chronic Kidney Disease Staging per NKF:</content>
<content></content>
<content>Stage I & II GFR >=60 Normal to Mildly Decreased</content>
<content>Stage III GFR 30- 59 Moderately Decreased</content>
<content>Stage IV GFR 15-29 Severely Decreased</content>
<content>Stage V GFR <15 Very Little GFR Left</content>
<content>ESRD GFR <15 on [employer]NAGER</content>
<content></content> Potassium Serum 4.1 meq/L 3.5-5.1 [facility] ([facility]) Chloride Level 107 meq/L 98-107 [facility] ([facility]) Carbon Dioxide Level 27 meq/L 21-32 [facility] ([facility]) Calcium Level 9.1 mg/dL 8.5-10.1 [facility] ([facility]) Anion Gap 6 meq/L 8-16 [facility] Ast/Sgot 24 U/L 7-37 [facility] ([facility]) Alt/SGPT 52 U/L 12-78 [facility] ([facility]) Total Protein 7.3 GM/DL 6.4-8.2 [facility] ([facility]) Bilirubin,Total 0.3 mg/dL 0.2-1.0 [facility] ([facility]) Alkaline Phosphatase 46 U/L 45-117 [facility] ([facility]) Albumin/Globulin Ratio 1.21 1.00-1.93 [facility] ([facility]) Albumin 4.0 GM/DL 3.2-5.2 [facility] ID Date Data Source [id number] 08/06/2019 07:23:00 AM EST [facility] ([facility]) Name Value Range Interpretation Code Description Data Adriana rce(s) Supporting Document(s) Estimated Average Glucose 174 mg/dL 60-110 [facility] ([facility]) Hemoglobin A1c 7.7 % [facility] ([facility]) REFERENCE RANGES: 4.5-5.6% NORMAL 5.7-6.4% SUGGESTS IMPAIRED GLUCOSE META BOLISM >= 6.5% ABNORMAL ID Date Data Source [id number] 08/06/2019 07:23:00 AM EST [facility] ([facility]) Name Value Range Interpretation Code Description Data Adriana rce(s) Supporting Document(s) Triglycerides Level 267 mg/dL [facility] ([facility]) Cholesterol Level 176 mg/dL [facility] ([facility]) HDL Cholesterol 43 mg/dL [facility] ([facility]) Non-HDL-C 133 mg/dL [facility] LDL Cholesterol 80 mg/dL [facility] ([facility]) Cholesterol Risk Ratio 4.093 [facility] ([facility]) Procedure Social History Code Duration Value Status Description Data Source(s ) Alcohol intake 06/05/2020 12:00:00 AM EST Lifetime non-drinker (finding) completed Lifetime non-drinker (finding) [facility] Tobacco use and exposure 06/05/2020 12:00:00 AM EST Never used co mpleted Never used [facility] Smoking 06/05/2020 12:00:00 AM EST Never smoker completed Never s [facility] Smoking 03/12/2020 12:00:00 AM EDT Non Smoker completed Non Smoke r [facility] ([facility], ) Smoking 09/25/2019 08:14:19 AM EDT Never smoked tobacco (findi ng) completed Never smoked tobacco (finding) [place] (Jeremy Helms MD [facility]) Vital Signs ID Date Data Source UNK Name Value Range Interpretation Code Description Data Source(s) Body mass index (BMI) [Ratio] 34.1 kg/m2 34.1 k g/m2 [facility] ([facility]) Body weight 238.00 [lb_av] 238.00 [lb_av] [facility] ([facility]) Body height 70 [in_i] 70 [in_i] [facility] ([facility]) 5'10" Heart rate 78 /min 78 /min [facility] ([facility]) Diastolic blood pressure 72 mm[Hg] 72 mm[Hg] [facility] ([facility]) Systolic blood pressure 130 mm[Hg] 130 mm[Hg] [facility] ([facility]) Body weight 106.142 kg 106.142 kg [facility] ([facility]) Body mass index (BMI) [Ratio] 32.6 kg/m2 32.6 k g/m2 [facility] ([facility]) Body weight 234.00 [lb_av] 234.00 [lb_av] [facility] ([facility]) Body height 71 [in_i] 71 [in_i] [facility] ([facility]) 5'11" Oxygen saturation in Arterial blood by Pulse oximetry 98 % 98 % [facility] ([facility]) Heart rate 90 /min 90 /min [facility] ([facility]) Diastolic blood pressure 90 mm[Hg] 90 mm[Hg] [facility] ([facility]) Systolic blood pressure 130 mm[Hg] 130 mm[Hg] [facility] ([facility]) Body mass index (BMI) [Ratio] 33.6 kg/m2 33.6 k g/m2 [facility] ([facility]) Body weight 234.00 [lb_av] 234.00 [lb_av] [facility] ([facility]) Body height 70 [in_i] 70 [in_i] [facility] ([facility]) 5'10" Heart rate 78 /min 78 /min [facility] ([facility]) Diastolic blood pressure 80 mm[Hg] 80 mm[Hg] [facility] ([facility]) Systolic blood pressure 138 mm[Hg] 138 mm[Hg] [facility] ([facility]) ID Date Data Source [id number] 07/13/2020 09:53:27 AM [facility] Name Value Range Interpretation Code Description Data Source(s) WEIGHT RECORDED 241 lb 241 lb [facility] Patient Treatment Plan of Care Planned [...]
[2020-08-15 05:13] VITALS: BP 148/91
== END 2020-08-15 05:14 | disposition home or self-care (01) ==
LOC: M ED 02:37
DX: S00.03XA Contusion of scalp, initial encounter (principal); X58.XXXA Exposure to other specified factors, initial encounter; Y92.89 Other specified places as the place of occurrence of the external cause; F79 Unspecified intellectual disabilities; E73.9 Lactose intolerance, unspecified; Z79.899 Other long term (current) drug therapy; Z79.84 Long term (current) use of oral hypoglycemic drugs

== ENCOUNTER → 2023-05-18 | Outpatient (REF) | payer MEDICARE, MEDICAID ==
[~2023-05-18] MED LIST changes: +ATOR1TAB19; +B-1100TA2 PO; +GLIM1TAB4; -OMEP-221; +OMEP40CA4 PO; +OMEP40CA5; -OMEP40CA97 PO; +VITMTA PO
== END ==
LOC: M LAB REF 12:42
PROVIDERS: ATTEND Nurse Practitioner Family
DX: L02.212 Cutaneous abscess of back [any part, except buttock and flank] (principal)

== ENCOUNTER 2023-07-11 22:40 | Observation (INO) | payer MEDICARE, MEDICAID ==
[~2023-07-11] VITALS: Ht 175.3 cm; Wt 99.1 kg
[2023-07-12] MEDS ORDERED: NS 1,000 ML IV SCH (05:00)
[2023-07-12] MEDS ORDERED: KETOROLAC 30 MG/ML 1ML VIAL IV ONE (05:05)
[2023-07-12] MEDS ORDERED: FLOM0.4C39 PO (06:08)
[2023-07-12] MEDS ORDERED: ACTO15TA19 PO (06:08)
[2023-07-12] MEDS ORDERED: SIME125C4 PO (06:08)
[2023-07-12] MEDS ORDERED: BETH25TA37 PO (06:08)
[2023-07-12] MEDS ORDERED: REST0.05 OU (06:08)
[2023-07-12] MEDS ORDERED: GLIM1TAB4 PO (06:08)
[2023-07-12] MEDS ORDERED: CYAN-1 PO (06:08)
[2023-07-12] MEDS ORDERED: VITMTA PO (06:08)
[2023-07-12] MEDS ORDERED: GEOD40CA13 PO (06:08)
[2023-07-12] MEDS ORDERED: TRUL10IN SC (06:08)
[2023-07-12] MEDS ORDERED: FENO160T10 PO (06:08)
[2023-07-12] MEDS ORDERED: VITA100093 PO (06:08)
[2023-07-12] MEDS ORDERED: METF-1191 PO (06:08)
[2023-07-12] MEDS ORDERED: VITA250C5 PO (06:08)
[2023-07-12] MEDS ORDERED: DOCU100C16 PO (06:08)
[2023-07-12] MEDS ORDERED: ACET-897 PO (06:08)
[2023-07-12] MEDS ORDERED: B-1100TA2 PO (06:08)
[2023-07-12] MEDS ORDERED: FERR1TAB8 PO (06:08)
[2023-07-12] MEDS ORDERED: ATOR1TAB19 PO (06:08)
[2023-07-12] MEDS ORDERED: OMEP40CA5 PO (06:08)
[2023-07-12] MEDS ORDERED: HOME MED LIST COMPLETE! XX SCH (06:10)
[2023-07-12 06:30] LABS: BASO # 0.1 10^3/uL (0.0-0.2); BASO % 0.6 % (0.0-1.0); EOS # 0.3 10^3/uL (0.0-0.5); EOS % 1.5 % (0.0-3.0); HEMATOCRIT 37.5 % (42.0-52.0); HEMOGLOBIN 12.5 g/dl (13.5-17.5); LYMPH # 4.4 10^3/uL (1.5-5.0); LYMPH % 24.3 % (24.0-44.0); MEAN CORPUSCULAR HEMOGLOBIN 28.9 pg (27.0-33.0); MEAN CORPUSCULAR HGB CONC 33.3 g/dl (32.0-36.5); MEAN CORPUSCULAR VOLUME 86.6 fl (80.0-96.0); MONO # 1.5 10^3/uL (0.0-0.8); NEUTROPHILS # 11.8 10^3/uL (1.5-8.5); NEUTROPHILS % 65.2 % (36.0-66.0); PLATELET COUNT, AUTOMATED 398 10^3/uL (150-450); RED BLOOD COUNT 4.33 10^6/uL (4.30-6.10); WHITE BLOOD COUNT 18.2 10^3/uL (4.0-10.0)
[2023-07-12 06:58] LABS: BLOOD UREA NITROGEN 13 MG/DL (9-23); CALCIUM LEVEL 10.1 MG/DL (8.5-10.1); CARBON DIOXIDE LEVEL 25 MMOL/L (20-31); CHLORIDE LEVEL 105 MMOL/L (98-107); CREATININE FOR GFR 0.68 MG/DL (0.70-1.30); GLOMERULAR FILTRATION RATE > 60.0 (>60); GLUCOSE, FASTING 96 MG/DL (60-100); MAGNESIUM LEVEL 1.7 MG/DL (1.8-2.4); POTASSIUM SERUM 3.5 MMOL/L (3.5-5.1); SODIUM LEVEL 139 MMOL/L (136-145)
[2023-07-12 07:02] LABS: RSV AMPLIFICATION NEGATIVE (NEGATIVE)
[2023-07-12] MEDS ORDERED: HYDROMORPHONE HCL 0.5 MG/ 0.5 ML SYRINGE IV PRN ×2 (08:30→14:15)
[2023-07-12] MEDS ORDERED: GLUCAGON INJ 1MG VIAL SC PRN (08:30)
[2023-07-12] MEDS ORDERED: DEXTROSE 50% 50ML SYRINGE IV PRN (08:30)
[2023-07-12] MEDS ORDERED: ONDANSETRON 4MG 2ML VIAL IV PRN ×2 (08:30→14:15)
[2023-07-12] MEDS ORDERED: GLUCOSE 4GM CHEW TABLET PO PRN (08:30)
[2023-07-12] MEDS: LR 1,000 ML IV SCH ×2 (10:13→16:18)
[2023-07-12] MEDS ORDERED: KETOROLAC 60MG 2ML VIAL As Ordered ONE (10:50)
[2023-07-12] MEDS ORDERED: LIDOCAINE 2% 100MG/5ML SDV (FOR ANES.) As Ordered ONE (10:50)
[2023-07-12] MEDS ORDERED: ONDANSETRON 4MG 2ML VIAL As Ordered ONE (10:50)
[2023-07-12] MEDS ORDERED: ACETAMINOPHEN 1000MG 100ML IV BAG As Ordered ONE (10:50)
[2023-07-12] MEDS ORDERED: MORPHINE 10 MG/ML 1ML VIAL As Ordered ONE (10:50)
[2023-07-12] MEDS ORDERED: propofoL 200 MG/20 ML VIAL As Ordered ONE ×2 (10:50→10:57)
[2023-07-12] MEDS ORDERED: fentaNYL 100 MCG/2 ML INJECTION As Ordered ONE (10:51)
[2023-07-12] MEDS ORDERED: MIDAZOLAM INJ 2MG/2ML VIAL As Ordered ONE (10:52)
[2023-07-12] MEDS ORDERED: ceFAZolin 2 GM/D5W 50 ML IV BAG As Ordered ONE (12:56)
[2023-07-12] MEDS ORDERED: fentaNYL 100 MCG/2 ML INJECTION IV PRN (14:15)
[2023-07-12] MEDS ORDERED: METOCLOPRAMIDE INJ 10MG/2ML VIAL IV PRN (14:15)
[2023-07-12] MEDS ORDERED: oxyCODONE 5MG TAB PO PRN (14:15)
[2023-07-12] MEDS ORDERED: LR 1,000 ML IV SCH (14:15)
[2023-07-12 15:35] VITALS: BP 132/72; TEMP 97.7; O2SAT 96
[2023-07-12] MEDS: INSULIN LISPRO (NovoLOG) PER UNIT SC SCH ×2 (16:18→18:13)
[2023-07-12 16:37] VITALS: BP 118/69; TEMP 97.5; O2SAT 97
[2023-07-12 17:14] VITALS: BP 125/86; TEMP 97.7; O2SAT 96
[2023-07-12] MEDS ORDERED: ATORVASTATIN 5MG PER 1/2 TABLET PO SCH (18:00)
[2023-07-12 18:47] VITALS: BP 125/82; TEMP 97.7; O2SAT 94
[2023-07-12 19:30] VITALS: BP 115/76; TEMP 98.1; O2SAT 100
[2023-07-12] MEDS ORDERED: DOCUSATE SODIUM 100MG CAPSULE PO SCH (21:00)
[2023-07-12] MEDS ORDERED: BETHANECHOL CHLORIDE 25 MG PO SCH (21:00)
[2023-07-12] MEDS ORDERED: TAMSULOSIN 0.4 MG CAP PO SCH (21:00)
[2023-07-12] MEDS ORDERED: GEODON 40 MG PO SCH (21:00)
[2023-07-12] MEDS ORDERED: ACETAMINOPHEN 500 MG TAB PO SCH (21:00)
[2023-07-12] MEDS: ceFAZolin SOD 2 GM in IV 1 EA IV SCH (21:11)
[2023-07-12] MEDS: HEPARIN SOD (PORCINE) 5000UNITS/ML 1ML VIAL/SYRINGE SC SCH (21:12)
[2023-07-12 23:30] VITALS: BP 112/74; TEMP 98.2; O2SAT 98
[2023-07-13 03:30] VITALS: BP 112/73; TEMP 98.1; O2SAT 95
[2023-07-13] MEDS: ceFAZolin SOD 2 GM in IV 1 EA IV SCH (05:02)
[2023-07-13 05:55] LABS: HEMATOCRIT 30.2 % (42.0-52.0); MEAN CORPUSCULAR HGB CONC 33.4 g/dl (32.0-36.5); MEAN CORPUSCULAR VOLUME 86.8 fl (80.0-96.0); PLATELET COUNT, AUTOMATED 302 10^3/uL (150-450); RED BLOOD COUNT 3.48 10^6/uL (4.30-6.10); WHITE BLOOD COUNT 14.1 10^3/uL (4.0-10.0)
[2023-07-13 05:58] LABS: HEMOGLOBIN 10.1 g/dl (13.5-17.5)
[2023-07-13 06:28] LABS: BLOOD UREA NITROGEN 20 MG/DL (9-23); CALCIUM LEVEL 9.6 MG/DL (8.5-10.1); CARBON DIOXIDE LEVEL 22 MMOL/L (20-31); CHLORIDE LEVEL 108 MMOL/L (98-107); GLOMERULAR FILTRATION RATE > 60.0 (>60); GLUCOSE, FASTING 101 MG/DL (60-100); MAGNESIUM LEVEL 1.9 MG/DL (1.8-2.4); POTASSIUM SERUM 3.9 MMOL/L (3.5-5.1); SODIUM LEVEL 139 MMOL/L (136-145)
[2023-07-13] MEDS: INSULIN LISPRO (NovoLOG) PER UNIT SC SCH ×2 (07:30→12:00)
[2023-07-13] MEDS ORDERED: FERROUS SULFATE 325MG TAB PO SCH (09:00)
[2023-07-13] MEDS ORDERED: MULTIVITAMINS/MINERALS THERAP 1 TAB PO SCH (09:00)
[2023-07-13] MEDS: HEPARIN SOD (PORCINE) 5000UNITS/ML 1ML VIAL/SYRINGE SC SCH (09:00)
[2023-07-13] MEDS ORDERED: THIAMINE 100 MG TAB PO SCH (09:00)
[2023-07-13] MEDS ORDERED: ACET-897 PO (12:56)
[2023-07-13] MEDS ORDERED: INSULIN LISPRO (NovoLOG) PER UNIT SC SCH (21:00)
== END 2023-07-13 15:20 | disposition home health service (06) ==
LOC: M ED 22:40 → M ED INP 22:41 → M MS5PR 07-12 15:10
PROVIDERS: ADMIT Internal Medicine; ATTEND Internal Medicine
DX: S82.851A Displaced trimalleolar fracture of right lower leg, initial encounter for closed fracture (principal); W01.0XXA Fall on same level from slipping, tripping and stumbling without subsequent striking against object, initial encounter; Y93.K1 Activity, walking an animal; Y92.480 Sidewalk as the place of occurrence of the external cause; Y99.9 Unspecified external cause status; E11.9 Type 2 diabetes mellitus without complications; F25.9 Schizoaffective disorder, unspecified; E78.00 Pure hypercholesterolemia, unspecified; D64.9 Anemia, unspecified; K21.9 Gastro-esophageal reflux disease without esophagitis; G47.33 Obstructive sleep apnea (adult) (pediatric); F70 Mild intellectual disabilities; Z79.899 Other long term (current) drug therapy; E73.9 Lactose intolerance, unspecified; Z79.84 Long term (current) use of oral hypoglycemic drugs
CPT/HCPCS: 27822; 27829; 36415; 73610; 76000; 80048; 83735; 85025; 85027; 87631; 93005; 94660; 96361; 96365; 96366; 96375; 97161; 97165; 97530; 99284; C1713; G0378; J0131; J0665; J0690; J1100; J1815; J1885; J2250; J2405; J3010

== ENCOUNTER → 2023-07-28 | Outpatient (CLI) | payer MEDICARE, MEDICAID ==
[~2023-07-28] MED LIST changes: +ACET-897 PO; +ACTO15TA19 PO; +ATOR1TAB19 PO; +BETH25TA37 PO; +CYAN-1 PO; +DOCU100C16 PO; +FERR1TAB8 PO; +GEOD40CA13 PO; +GLIM1TAB4 PO; +METF-1191 PO; +OMEP40CA5 PO; +REST0.05 OU; +SIME125C4 PO; +TRUL10IN SC; +VITA100093 PO; +VITA250C5 PO
== END ==
LOC: M SOG 08:02
PROVIDERS: ATTEND Orthopaedic Surgery
DX: S82.851A Displaced trimalleolar fracture of right lower leg, initial encounter for closed fracture (principal); Y93.9 Activity, unspecified; Y92.9 Unspecified place or not applicable

== ENCOUNTER → 2023-08-21 | Outpatient (CLI) | payer MEDICARE, MEDICAID | LOC: M SOG 07:56 | PROVIDERS: ATTEND Orthopaedic Surgery | DX: S82.851D Displaced trimalleolar fracture of right lower leg, subsequent encounter for closed fracture with routine healing (principal) ==

== ENCOUNTER → 2023-09-27 | Outpatient (CLI) | payer MEDICARE, MEDICAID | LOC: M SOG 08:04 | PROVIDERS: ATTEND Orthopaedic Surgery | DX: S82.851A Displaced trimalleolar fracture of right lower leg, initial encounter for closed fracture (principal); Y93.9 Activity, unspecified; Y92.9 Unspecified place or not applicable ==

== ENCOUNTER 2023-10-12 08:30 | Outpatient (RCR) | payer MEDICARE, MEDICAID | END 2023-10-15 | LOC: M PT 08:30 | PROVIDERS: ATTEND Orthopaedic Surgery | DX: S82.851D Displaced trimalleolar fracture of right lower leg, subsequent encounter for closed fracture with routine healing (principal) ==

== ENCOUNTER → 2023-11-14 | Outpatient (RCR) | payer MEDICARE, MEDICAID ==
[~2023-11-14] MED LIST changes: +BETH25TA; -BETH25TA3
== END ==
LOC: M PT 10-16 09:55
PROVIDERS: ATTEND Orthopaedic Surgery
DX: S82.851D Displaced trimalleolar fracture of right lower leg, subsequent encounter for closed fracture with routine healing (principal)

== ENCOUNTER 2023-12-12 09:15 | Outpatient (RCR) | payer MEDICARE, MEDICAID ==
[~2023-12-12 09:15] MED LIST changes: -GLIM1TAB4; -GLIM1TAB4 PO; +GLIM1TAB84; +GLIM1TAB84 PO
== END 2023-12-15 ==
LOC: M PT 09:15
PROVIDERS: ATTEND Orthopaedic Surgery
DX: S82.851D Displaced trimalleolar fracture of right lower leg, subsequent encounter for closed fracture with routine healing (principal)

== ENCOUNTER 2024-02-11 15:01 | Emergency (ER) | payer MEDICARE, MEDICAID ==
[~2024-02-11] VITALS: Ht 185.4 cm; Wt 103.6 kg
[2024-02-11 18:50] VITALS: BP 118/64; TEMP 98.8; O2SAT 98
== END 2024-02-11 18:51 | disposition home or self-care (01) ==
LOC: M ED 15:01
DX: M25.562 Pain in left knee (principal); E11.9 Type 2 diabetes mellitus without complications; K21.9 Gastro-esophageal reflux disease without esophagitis; N40.0 Benign prostatic hyperplasia without lower urinary tract symptoms; D64.9 Anemia, unspecified; Z91.011 Allergy to milk products; Z79.1 Long term (current) use of non-steroidal anti-inflammatories (NSAID); Z79.4 Long term (current) use of insulin; Z79.84 Long term (current) use of oral hypoglycemic drugs; Z79.810 Long term (current) use of selective estrogen receptor modulators (SERMs); Z79.899 Other long term (current) drug therapy

== ENCOUNTER → 2024-05-13 | Outpatient (REF) | payer MEDICARE, MEDICAID ==
[~2024-05-13] MED LIST changes: +GABA-1172 PO; -GABA-282 PO
[2024-05-13 17:46] LABS: FERRITIN 69.1 NG/ML (10.5-307.3); FOLATE > 24.0 NG/ML (>5.4)
[2024-05-13 17:47] LABS: VITAMIN B12 LEVEL 1642 PG/ML (211-911)
[2024-05-14 15:46] LABS: ATYPICAL LYMPH 7 % (0-5); BASOPHILS 1 % (0-1); LYMPHOCYTES 33 % (16-44); MONOCYTES 3 % (0-5); NEUTROPHILS 56 % (28-66); PLATELET ESTIMATE NORMAL (NORMAL)
== END ==
LOC: M LAB REF 16:53
PROVIDERS: ATTEND Family Medicine
DX: D64.9 Anemia, unspecified (principal); F25.0 Schizoaffective disorder, bipolar type

== ENCOUNTER → 2024-09-17 | Outpatient (REF) | payer MEDICARE, MEDICAID ==
[~2024-09-17] MED LIST changes: -GEOD40CA13 PO; +ZIPR40CA27 PO
== END ==
LOC: M LAB REF 18:03
PROVIDERS: ATTEND Family Medicine
DX: E83.52 Hypercalcemia (principal)